=== PATIENT | female | born 1955 | race Caucasian/White ===

== ENCOUNTER 2021-10-07 17:34 | Inpatient (IN) | payer OTHER ==
[2021-10-07] MEDS ORDERED: LIDOCAINE HCL/EPINEPHRINE/PF 20 ML VIAL ONE (18:01)
[2021-10-07 18:03] VITALS: BMI 24.1
[2021-10-07] MEDS ORDERED: LORazepam 2 MG/ML SDV VIAL IVPUSH ONE (18:47)
[2021-10-07 19:12] LABS: INR 1.28 (0.83-1.09); PROTHROMBIN TIME (PATIENT) 14.7 SEC (9.7-13.0)
[2021-10-07 19:15] LABS: ACTIVATED PTT 33.7 SECONDS (25.2-36.5)
[2021-10-07 19:23] LABS: HEMATOCRIT 29.1 % (32.4-45.2); HEMOGLOBIN 9.2 G/dL (10.7-15.3); MCH 21.4 pg (25.7-33.7); MCHC 31.6 g/dl (32.0-36.0); MEAN CELL VOLUME 67.5 fl (80-96); PLATELET COUNT 169.3 10^3/uL (134-434); RBC 4.31 10^6/uL (3.60-5.2); RDW 24.4 % (11.6-15.6); WHITE BLOOD COUNT 4.6 10^3/uL (4.0-10.8)
[2021-10-07 19:30] LABS: ANISOCYTOSIS 2+
[2021-10-07 19:31] LABS: PLATELET ESTIMATE ADEQUATE; TARGET CELLS FEW
[2021-10-07 20:08] LABS: ALBUMIN 2.9 g/dl (3.4-5.0); BILIRUBIN,TOTAL 0.9 mg/dl (0.2-1); CALCIUM 8.1 mg/dl (8.5-10); CREATININE 0.4 mg/dl (0.55-1.3)
[2021-10-07] MEDS ORDERED: SODIUM CHLORIDE 0.9% 500 ML INFUS.BAG IV ONE (20:44)
[2021-10-08] MEDS ORDERED: DIPHTH,PERTUSS(ACELL),TET 0.5 ML DISP.SYRIN IM ONE ×2 (00:17→00:22)
[2021-10-08] MEDS ORDERED: FOLIC ACID INJECTION - 1 MG, THIAMINE HCL 100 MG, MULTIVIT INJECTION ADULT 10 ML in SOD... IVPB ONE (03:29)
[2021-10-08] MEDS ORDERED: LORazepam 1 MG TABLET PO PRN ×2 (03:30→10:33)
[2021-10-08] MEDS ORDERED: POTASSIUM CHLORIDE ORAL LIQUID 20 MEQ/15 ML PO ONE (05:03)
[2021-10-08 05:11] LABS: BLOOD UREA NITROGEN 3.1 mg/dL (7-18); CALCIUM 7.5 mg/dL (8.5-10.1)
[2021-10-08 05:14] LABS: CREATININE 0.3 mg/dL (0.55-1.3)
[2021-10-08 09:06] LABS: MAGNESIUM 1.5 mg/dL (1.8-2.4)
[2021-10-08] MEDS: FOLIC ACID 1 MG TABLET (FP) PO SCH (09:15)
[2021-10-08] MEDS: DEXAMETHASONE SOD PHOSPHATE 10 MG/1 ML VIAL IVPUSH SCH (09:15)
[2021-10-08] MEDS: THIAMINE HCL 100 MG TABLET (FP) PO SCH (09:15)
[2021-10-08 09:16] LABS: IRON SERUM 15 ug/dL (50-175); TOTAL IRON BINDING CAPACITY 397 ug/dL (250-450)
[2021-10-08 09:56] LABS: HEMATOCRIT 24.1 % (32.4-45.2); HEMOGLOBIN 7.4 GM/dL (10.7-15.3); MCH 20.5 pg (25.7-33.7); MCHC 30.7 g/dl (32.0-36.0); MEAN CELL VOLUME 66.6 fl (80-96); MEAN PLT VOLUME 8.4 fl (7.5-11.1); PLATELET COUNT 104 10^3/uL (134-434); RBC 3.62 M/mm3 (3.60-5.2); RETICULOCYTES 2.28 % (0.5-1.5); WHITE BLOOD COUNT 3.2 K/mm3 (4.0-10.0)
[2021-10-08] MEDS: LORazepam 1 MG TABLET PO PRN (10:36)
[2021-10-08 11:09] LABS: ERYTHROCYTE SEDIMENTATION RATE 9 mm/hr (0-30)
[2021-10-08] MEDS: LORazepam 1 MG TABLET PO SCH ×3 (12:16→22:41)
[2021-10-08 12:53] LABS: BLOOD UREA NITROGEN 3.8 mg/dL (7-18)
[2021-10-08 12:56] LABS: CREATININE 0.5 mg/dL (0.55-1.3)
[2021-10-08] MEDS ORDERED: MAGNESIUM SULF 50% (8.12 MEQ/2 ML-1 GM VIAL) IVPB ONE (13:00)
[2021-10-08 13:17] LABS: EPI CELLS 5 /uL (0-25.1); HYALINE CASTS 6 /uL (0-3.1); PH,URINE 8.5 (5.0-8.0); URINE APPEARANCE CLOUDY; URINE BACTERIA >9,000 /uL (0-1359); URINE BILIRUBIN NEGATIVE (NEGATIVE); URINE COLOR YELLOW; URINE GLUCOSE (UA) NEGATIVE (NEGATIVE); URINE KETONE NEGATIVE (NEGATIVE); URINE LEUK ESTERASE 3+ (NEGATIVE); URINE NITRITE POSITIVE (NEGATIVE); URINE PROTEIN TRACE (NEGATIVE); URINE RBC 6 /uL (0-23.9); URINE WBC 670 /uL (0-25.8)
[2021-10-08] MEDS ORDERED: DEXTROSE 5%-WATER - 50 ML IVPB ONE (15:30)
[2021-10-08] MEDS ORDERED: cefTRIAXone SODIUM 1 GM VIAL ONE (15:30)
[2021-10-08] MEDS: CEFTRIAXONE 1 GM in DEXTROSE 5%-WATER - 50 ML IVPB SCH (15:46)
[2021-10-08 16:33] LABS: BLOOD UREA NITROGEN 5.3 mg/dL (7-18)
[2021-10-08 16:36] LABS: CREATININE 0.6 mg/dL (0.55-1.3)
[2021-10-09] MEDS: LORazepam 1 MG TABLET PO SCH ×4 (06:10→22:00)
[2021-10-09 07:39] LABS: HEMATOCRIT 23.4 % (32.4-45.2); HEMOGLOBIN 7.1 GM/dL (10.7-15.3); MCH 20.6 pg (25.7-33.7); MCHC 30.4 g/dl (32.0-36.0); MEAN CELL VOLUME 67.7 fl (80-96); MEAN PLT VOLUME 8.2 fl (7.5-11.1); PLATELET COUNT 93 10^3/uL (134-434); RBC 3.45 M/mm3 (3.60-5.2); RDW 23.9 % (11.6-15.6); WHITE BLOOD COUNT 2.5 K/mm3 (4.0-10.0)
[2021-10-09 08:11] LABS: BLOOD UREA NITROGEN 5.9 mg/dL (7-18); CALCIUM 7.9 mg/dL (8.5-10.1)
[2021-10-09 08:12] LABS: MAGNESIUM 1.8 mg/dL (1.8-2.4)
[2021-10-09 08:14] LABS: CREATININE 0.4 mg/dL (0.55-1.3); PHOSPHOROUS 3.7 mg/dL (2.5-4.9)
[2021-10-09] MEDS ORDERED: DEXTROSE 5%-WATER - 50 ML IVPB ONE (08:57)
[2021-10-09] MEDS ORDERED: cefTRIAXone SODIUM 1 GM VIAL ONE (08:57)
[2021-10-09 09:04] LABS: ANISOCYTOSIS 2+; MACROCYTOSIS 0; TARGET CELLS 1+
[2021-10-09] MEDS: THIAMINE HCL 100 MG TABLET (FP) PO SCH (09:46)
[2021-10-09] MEDS: CEFTRIAXONE 1 GM in DEXTROSE 5%-WATER - 50 ML IVPB SCH (09:46)
[2021-10-09] MEDS: FOLIC ACID 1 MG TABLET (FP) PO SCH (09:46)
[2021-10-09] MEDS: DEXAMETHASONE SOD PHOSPHATE 10 MG/1 ML VIAL IVPUSH SCH (09:46)
[2021-10-09] MEDS ORDERED: SODIUM CHLORIDE 250 ML IV STA (16:03)
[2021-10-09] MEDS ORDERED: IRON SUCROSE INJECTION 200 MG in SODIUM CHLORIDE 90 ML IVPB ONE (16:22)
[2021-10-09] MEDS ORDERED: DOCUSATE SODIUM 100 MG CAPSULE (FP) PO PRN (16:31)
[2021-10-09 16:37] LABS: HEMATOCRIT 26.2 % (32.4-45.2); HEMOGLOBIN 7.8 GM/dL (10.7-15.3); MCH 20.3 pg (25.7-33.7); MCHC 29.9 g/dl (32.0-36.0); MEAN CELL VOLUME 67.8 fl (80-96); PLATELET COUNT 110 10^3/uL (134-434); RBC 3.86 M/mm3 (3.60-5.2)
[2021-10-09 17:01] LABS: WHITE BLOOD COUNT 1.5 K/mm3 (4.0-10.0)
[2021-10-09] MEDS: LORazepam 1 MG TABLET PO PRN (17:27)
[2021-10-09] MEDS ORDERED: METOPROLOL TARTRATE 5 MG/5 ML VIAL IVPUSH PRN (18:07)
[2021-10-09] MEDS: FERROUS SO4 325 MG TABLET (FP) PO SCH (22:00)
[2021-10-10] MEDS: LORazepam 1 MG TABLET PO SCH ×4 (05:49→22:38)
[2021-10-10 07:39] LABS: BASO % 0.6 % (0-2.0); EOS % 0.1 % (0-4.5); HEMATOCRIT 23.6 % (32.4-45.2); HEMOGLOBIN 7.2 GM/dL (10.7-15.3); LYMPH % 25.9 % (8-40); MCH 20.8 pg (25.7-33.7); MCHC 30.6 g/dl (32.0-36.0); MEAN CELL VOLUME 67.9 fl (80-96); MEAN PLT VOLUME 8.7 fl (7.5-11.1); MONO % 16.2 % (3.8-10.2); NEUT % 57.2 % (42.8-82.8); PLATELET COUNT 105 10^3/uL (134-434); RBC 3.47 M/mm3 (3.60-5.2); RDW 23.6 % (11.6-15.6); WHITE BLOOD COUNT 4.1 K/mm3 (4.0-10.0)
[2021-10-10 07:52] LABS: INR 1.46 (0.83-1.09); PROTHROMBIN TIME (PATIENT) 16.9 SEC (9.7-13.0)
[2021-10-10 07:54] LABS: ACTIVATED PTT 29.5 SECONDS (25.2-36.5)
[2021-10-10 08:15] LABS: BLOOD UREA NITROGEN 8.1 mg/dL (7-18); CALCIUM 8.2 mg/dL (8.5-10.1)
[2021-10-10 08:16] LABS: ALBUMIN 2.6 g/dl (3.4-5.0); MAGNESIUM 1.7 mg/dL (1.8-2.4)
[2021-10-10 08:19] LABS: CREATININE 0.5 mg/dL (0.55-1.3)
[2021-10-10 08:20] LABS: BILIRUBIN,TOTAL 0.8 mg/dL (0.2-1); TOT PROT 6.9 g/dl (6.4-8.2)
[2021-10-10] MEDS: FOLIC ACID 1 MG TABLET (FP) PO SCH (10:20)
[2021-10-10] MEDS: THIAMINE HCL 100 MG TABLET (FP) PO SCH (10:20)
[2021-10-10] MEDS: FERROUS SO4 325 MG TABLET (FP) PO SCH ×2 (10:20→22:38)
[2021-10-10] MEDS ORDERED: MAGNESIUM SULF 50% (8.12 MEQ/2 ML-1 GM VIAL) IVPB ONE (13:13)
[2021-10-10] MEDS ORDERED: SODIUM CHLORIDE 1,000 ML IV SCH (13:15)
[2021-10-10] MEDS ORDERED: MAGNESIUM OXIDE 400 MG TABLET (FP) PO ONE (13:48)
[2021-10-10] MEDS: SODIUM CHLORIDE 1 GM TABLET PO SCH ×2 (15:15→22:42)
[2021-10-11] MEDS ORDERED: LORazepam 0.5 MG TABLET PO PRN
[2021-10-11] MEDS: LORazepam 0.5 MG TABLET PO SCH ×4 (05:41→22:30)
[2021-10-11 07:27] LABS: HEMATOCRIT 23.7 % (32.4-45.2); HEMOGLOBIN 7.2 GM/dL (10.7-15.3); MCH 20.8 pg (25.7-33.7); MCHC 30.3 g/dl (32.0-36.0); MEAN CELL VOLUME 68.6 fl (80-96); MEAN PLT VOLUME 8.2 fl (7.5-11.1); PLATELET COUNT 101 10^3/uL (134-434); RBC 3.45 M/mm3 (3.60-5.2); RDW 23.8 % (11.6-15.6); WHITE BLOOD COUNT 2.8 K/mm3 (4.0-10.0)
[2021-10-11 07:58] LABS: ALBUMIN 2.3 g/dl (3.4-5.0); BLOOD UREA NITROGEN 11.7 mg/dL (7-18); MAGNESIUM 2.1 mg/dL (1.8-2.4)
[2021-10-11 08:01] LABS: CREATININE 0.4 mg/dL (0.55-1.3); PHOSPHOROUS 4.1 mg/dL (2.5-4.9)
[2021-10-11 08:02] LABS: BILIRUBIN,TOTAL 0.5 mg/dL (0.2-1)
[2021-10-11 08:39] LABS: ANISOCYTOSIS 3+; MACROCYTOSIS 0
[2021-10-11] MEDS: FOLIC ACID 1 MG TABLET (FP) PO SCH (09:24)
[2021-10-11] MEDS: ENOXAPARIN NA (PORCINE) 40 MG/0.4 ML DISP.SYRIN SQ SCH (09:25)
[2021-10-11] MEDS: THIAMINE HCL 100 MG TABLET (FP) PO SCH (09:25)
[2021-10-11] MEDS: FERROUS SO4 325 MG TABLET (FP) PO SCH ×2 (09:25→22:30)
[2021-10-11 10:53] LABS: HIV INTERPRETATION NEGATIVE (NEGATIVE)
[2021-10-12] MEDS ORDERED: LORazepam 0.5 MG TABLET PO ONE (05:00)
[2021-10-12 06:34] LABS: BASO % 0.8 % (0-2.0); EOS % 3.3 % (0-4.5); HEMATOCRIT 24.8 % (32.4-45.2); HEMOGLOBIN 7.4 GM/dL (10.7-15.3); LYMPH % 34.7 % (8-40); MCH 20.5 pg (25.7-33.7); MCHC 29.6 g/dl (32.0-36.0); MEAN CELL VOLUME 69.1 fl (80-96); MEAN PLT VOLUME 8.5 fl (7.5-11.1); MONO % 22.4 % (3.8-10.2); NEUT % 38.8 % (42.8-82.8); PLATELET COUNT 112 10^3/uL (134-434); RDW 24.4 % (11.6-15.6); WHITE BLOOD COUNT 3.6 K/mm3 (4.0-10.0)
[2021-10-12 07:02] LABS: ALBUMIN 2.2 g/dl (3.4-5.0); BLOOD UREA NITROGEN 11.8 mg/dL (7-18); CALCIUM 7.8 mg/dL (8.5-10.1)
[2021-10-12 07:03] LABS: MAGNESIUM 1.7 mg/dL (1.8-2.4)
[2021-10-12 07:06] LABS: CREATININE 0.4 mg/dL (0.55-1.3)
[2021-10-12 07:07] LABS: BILIRUBIN,TOTAL 0.4 mg/dL (0.2-1); PHOSPHOROUS 3.7 mg/dL (2.5-4.9); TOT PROT 5.7 g/dl (6.4-8.2)
[2021-10-12] MEDS ORDERED: MAGNESIUM CL 64 MG TABLET.SA PO ONE (09:00)
[2021-10-12] MEDS: THIAMINE HCL 100 MG TABLET (FP) PO SCH (09:10)
[2021-10-12] MEDS: FERROUS SO4 325 MG TABLET (FP) PO SCH (09:10)
[2021-10-12] MEDS: ENOXAPARIN NA (PORCINE) 40 MG/0.4 ML DISP.SYRIN SQ SCH (09:10)
[2021-10-12] MEDS: FOLIC ACID 1 MG TABLET (FP) PO SCH (09:10)
[2021-10-12 09:26] LABS: ANISOCYTOSIS 2+; MACROCYTOSIS 0; TARGET CELLS 1+
[2021-10-12] MEDS ORDERED: SODIUM CHLORIDE 1 GM TABLET PO SCH (10:00)
[2021-10-12] MEDS ORDERED: MAGNESIUM OXIDE 400 MG TABLET (FP) PO SCH (10:00)
[2021-10-12 13:59] VITALS: BP 127/67; PULSE 111; TEMP 98.6
== END 2021-10-12 18:28 | disposition home health service (06) | DRG 896 ==
LOC: FER 17:34 → J4S 10-08 02:33
PROVIDERS: ADMIT Internal Medicine; ATTEND Internal Medicine
PROC: HZ2ZZZZ Detoxification Services for Substance Abuse Treatment (ICD-10-PCS; principal; 2021-10-08)
DX: F10.239 Alcohol dependence with withdrawal, unspecified (principal); U07.1 COVID-19; N39.0 Urinary tract infection, site not specified; E87.1 Hypo-osmolality and hyponatremia; I24.8 Other forms of acute ischemic heart disease; D61.818 Other pancytopenia; D50.9 Iron deficiency anemia, unspecified; B96.1 Klebsiella pneumoniae [K. pneumoniae] as the cause of diseases classified elsewhere; E83.42 Hypomagnesemia
CPT/HCPCS: 36415; 70450-TC; 71045-TC-FY; 71275-TC; 72125-TC; 72170-TC-FY; 80048; 80053; 80061; 80307; 81003; 82272; 82570; 82728; 83540; 83550; 83615; 83735; 83835; 83930; 83935; 84100; 84300; 84443; 84484; 85025; 85027; 85045; 85610; 85651; 85730; 86140; 86850; 86900; 86901; 87040; 87086; 87186; 87389; 90715; 93005; 93010; 94761; 97116-GP; 97161-GP; 99285-25; C9803-CS; J1100; Q9967; U0003; U0005

== ENCOUNTER 2021-10-16 11:44 | Emergency (ER) | payer OTHER ==
[2021-10-16 11:56] VITALS: BP 114/87; PULSE 100; TEMP 98.3; BMI 24.1
== END 2021-10-16 12:10 | disposition home or self-care (01) ==
LOC: FER 11:44
DX: Z48.01 Encounter for change or removal of surgical wound dressing (principal)
CPT/HCPCS: 99281-25

== ENCOUNTER 2022-04-23 17:29 | Inpatient (IN) | payer OTHER ==
[2022-04-23 21:40] LABS: VENOUS BASE EXCESS 5.1 mmol/L (-2-2); VENOUS O2 SATURATION 41.1 % (70-80); VENOUS PCO2 58.5 mmHg (38-52); VENOUS PH 7.36 (7.310-7.410)
[2022-04-23 21:55] LABS: BASO % 0.1 % (0-2.0); HEMATOCRIT 41.7 % (32.4-45.2); HEMOGLOBIN 13.2 GM/dL (10.7-15.3); LYMPH % 8.6 % (8-40); MCH 28.3 pg (25.7-33.7); MCHC 31.8 g/dl (32.0-36.0); MEAN CELL VOLUME 89.1 fl (80-96); MEAN PLT VOLUME 8.3 fl (7.5-11.1); MONO % 10.6 % (3.8-10.2); NEUT % 80.7 % (42.8-82.8); PLATELET COUNT 273 10^3/uL (134-434); RBC 4.68 M/mm3 (3.60-5.2); RDW 15.1 % (11.6-15.6); WHITE BLOOD COUNT 16.9 K/mm3 (4.0-10.0)
[2022-04-23 22:11] LABS: ALBUMIN 2.3 g/dl (3.4-5.0); BLOOD UREA NITROGEN 10.6 mg/dL (7-18); CALCIUM 8.5 mg/dL (8.5-10.1)
[2022-04-23 22:13] LABS: CREATININE 0.5 mg/dL (0.55-1.3)
[2022-04-23 22:15] LABS: BILIRUBIN,TOTAL 0.7 mg/dL (0.2-1); TOT PROT 6.5 g/dl (6.4-8.2)
[2022-04-23 22:18] LABS: N-TERMINAL BNP 469.4 pg/ml (5-125)
[2022-04-23 22:29] LABS: INR 1.35 (0.83-1.09); PROTHROMBIN TIME (PATIENT) 15.6 SEC (9.7-13.0)
[2022-04-23 22:32] LABS: ACTIVATED PTT 30.7 SECONDS (25.2-36.5)
[2022-04-24] MEDS ORDERED: CEFTRIAXONE 1,000 MG in DEXTROSE 5%-WATER - 50 ML IVPB ONE (00:33)
[2022-04-24] MEDS ORDERED: AZITHROMYCIN IVPB 500 MG in DEXTROSE 5%-WATER - 250 ML IVPB ONE (00:33)
[2022-04-24] MEDS ORDERED: CEFTRIAXONE 1 GM/50 ML BAG ONE (00:37)
[2022-04-24] MEDS ORDERED: AZITHROMYCIN IVPB 500 MG/250 ML BAG IVPB ONE (00:38)
[2022-04-24] MEDS ORDERED: VANCOMYCIN 1,000 MG in DEXTROSE 5%-WATER - 250 ML IVPB SCH ×2 (06:30→10:00)
[2022-04-24 06:44] LABS: PH,URINE 5.5 (5.0-8.0); URINE APPEARANCE CLOUDY; URINE BILIRUBIN 1+ (NEGATIVE); URINE COLOR DK YELLOW; URINE GLUCOSE (UA) NEGATIVE (NEGATIVE); URINE KETONE TRACE (NEGATIVE); URINE LEUK ESTERASE 2+ (NEGATIVE); URINE NITRITE POSITIVE (NEGATIVE); URINE PROTEIN TRACE (NEGATIVE); URINE UROBILINOGEN 0.2 mg/dL (0.2-1.0)
[2022-04-24] MEDS ORDERED: VANCOMYCIN/WATER FOR INJ (PEG) 1,000 MG/200 ML BAG IVPB ONE (07:28)
[2022-04-24 07:34] LABS: EPI CELLS 2.2 /uL (0-25.1); HYALINE CASTS 3.86 /uL (0-3.1); URINE BACTERIA 38440.7 /uL (0-1359); URINE RBC 8.8 /uL (0-23.9)
[2022-04-24 08:18] LABS: BASO % 0.2 % (0-2.0); EOS % 0.7 % (0-4.5); HEMATOCRIT 36.1 % (32.4-45.2); HEMOGLOBIN 11.8 GM/dL (10.7-15.3); LYMPH % 13.4 % (8-40); MCH 28.9 pg (25.7-33.7); MCHC 32.6 g/dl (32.0-36.0); MEAN CELL VOLUME 88.8 fl (80-96); MEAN PLT VOLUME 8.3 fl (7.5-11.1); MONO % 13.1 % (3.8-10.2); NEUT % 72.6 % (42.8-82.8); PLATELET COUNT 197 10^3/uL (134-434); RBC 4.07 M/mm3 (3.60-5.2); RDW 15.3 % (11.6-15.6); WHITE BLOOD COUNT 8.8 K/mm3 (4.0-10.0)
[2022-04-24 08:39] LABS: URINE CRYSTALS FEW CALCIUM OXALATE /hpf
[2022-04-24 08:50] LABS: ALBUMIN 1.9 g/dl (3.4-5.0); BLOOD UREA NITROGEN 10.5 mg/dL (7-18); CALCIUM 8.5 mg/dL (8.5-10.1)
[2022-04-24 08:52] LABS: CREATININE 0.4 mg/dL (0.55-1.3); TOT PROT 5.5 g/dl (6.4-8.2)
[2022-04-24 08:53] LABS: BILIRUBIN,TOTAL 0.7 mg/dL (0.2-1)
[2022-04-24] MEDS ORDERED: VANCOMYCIN/WATER FOR INJ (PEG) 1,000 MG/200 ML BAG IVPB SCH (11:11)
[2022-04-25] MEDS: CEFTRIAXONE 1 GM in DEXTROSE 5%-WATER - 50 ML IVPB SCH (10:46)
[2022-04-25] MEDS ORDERED: METOPROLOL TARTRATE 5 MG/5 ML VIAL IVPUSH PRN (12:28)
[2022-04-25 13:44] LABS: BASO % 0.3 % (0-2.0); EOS % 2.4 % (0-4.5); HEMATOCRIT 39.5 % (32.4-45.2); HEMOGLOBIN 12.8 GM/dL (10.7-15.3); LYMPH % 7.8 % (8-40); MCH 28.7 pg (25.7-33.7); MCHC 32.4 g/dl (32.0-36.0); MEAN CELL VOLUME 88.6 fl (80-96); MONO % 8.5 % (3.8-10.2); PLATELET COUNT 271 10^3/uL (134-434); RBC 4.45 M/mm3 (3.60-5.2); RDW 15.1 % (11.6-15.6); WHITE BLOOD COUNT 14.8 K/mm3 (4.0-10.0)
[2022-04-25 14:01] LABS: ALBUMIN 2.2 g/dl (3.4-5.0); BLOOD UREA NITROGEN 11.9 mg/dL (7-18); CALCIUM 8.3 mg/dL (8.5-10.1)
[2022-04-25 14:04] LABS: CREATININE 0.6 mg/dL (0.55-1.3)
[2022-04-25 14:06] LABS: BILIRUBIN,TOTAL 0.6 mg/dL (0.2-1); TOT PROT 6.4 g/dl (6.4-8.2)
[2022-04-26 08:21] LABS: BASO % 0.5 % (0-2.0); EOS % 3.9 % (0-4.5); HEMATOCRIT 35.1 % (32.4-45.2); HEMOGLOBIN 11.5 GM/dL (10.7-15.3); MCH 29.2 pg (25.7-33.7); MCHC 32.7 g/dl (32.0-36.0); MEAN CELL VOLUME 89.5 fl (80-96); MEAN PLT VOLUME 8.2 fl (7.5-11.1); MONO % 9.9 % (3.8-10.2); NEUT % 72.7 % (42.8-82.8); PLATELET COUNT 142 10^3/uL (134-434); RBC 3.93 M/mm3 (3.60-5.2); WHITE BLOOD COUNT 7.6 K/mm3 (4.0-10.0)
[2022-04-26 09:02] LABS: BLOOD UREA NITROGEN 9.8 mg/dL (7-18)
[2022-04-26 09:05] LABS: CREATININE 0.3 mg/dL (0.55-1.3)
[2022-04-26 09:07] LABS: BILIRUBIN,TOTAL 0.9 mg/dL (0.2-1)
[2022-04-26] MEDS: CEFTRIAXONE 1 GM in DEXTROSE 5%-WATER - 50 ML IVPB SCH (09:27)
[2022-04-27] MEDS: CEFTRIAXONE 1 GM in DEXTROSE 5%-WATER - 50 ML IVPB SCH (09:32)
[2022-04-27] MEDS: metoPROLOL SUCCINATE 25 MG TAB.SR.24H (FP) PO SCH (11:34)
[2022-04-27 17:58] LABS: BF WBC & OTHER NUCLEATED CELLS 288 /mm3
[2022-04-27 18:52] LABS: BODY FLUID MACROPHAGES 80 %; BODY FLUID MONOCYTE 1 %
[2022-04-28] MEDS: metoPROLOL SUCCINATE 25 MG TAB.SR.24H (FP) PO SCH (09:25)
[2022-04-28] MEDS: CEFTRIAXONE 1 GM in DEXTROSE 5%-WATER - 50 ML IVPB SCH (09:25)
[2022-04-29 08:40] LABS: BASO % 0.7 % (0-2.0); EOS % 2.2 % (0-4.5); HEMATOCRIT 36.9 % (32.4-45.2); LYMPH % 9.5 % (8-40); MCH 29.1 pg (25.7-33.7); MCHC 32.6 g/dl (32.0-36.0); MEAN CELL VOLUME 89.2 fl (80-96); MONO % 15.5 % (3.8-10.2); NEUT % 72.1 % (42.8-82.8); PLATELET COUNT 200 10^3/uL (134-434); RBC 4.14 M/mm3 (3.60-5.2); RDW 14.8 % (11.6-15.6); WHITE BLOOD COUNT 7.5 K/mm3 (4.0-10.0)
[2022-04-29 08:58] LABS: ALBUMIN 1.8 g/dl (3.4-5.0); CALCIUM 7.8 mg/dL (8.5-10.1)
[2022-04-29 09:03] LABS: TOT PROT 5.5 g/dl (6.4-8.2)
[2022-04-29 09:05] LABS: CREATININE 0.4 mg/dL (0.55-1.3)
[2022-04-29] MEDS: CEFTRIAXONE 1 GM in DEXTROSE 5%-WATER - 50 ML IVPB SCH (09:43)
[2022-04-29] MEDS: metoPROLOL SUCCINATE 25 MG TAB.SR.24H (FP) PO SCH (09:43)
[2022-04-29] MEDS: SPIRONOLACTONE 25 MG TABLET PO SCH (13:30)
[2022-04-30] MEDS ORDERED: REGADENOSON 0.4 MG/5 ML PRE-FILLED SYRINGE IVPUSH ONE ×2 (10:45→13:08)
[2022-04-30] MEDS: CEFTRIAXONE 1 GM in DEXTROSE 5%-WATER - 50 ML IVPB SCH (16:01)
[2022-04-30] MEDS: metoPROLOL SUCCINATE 25 MG TAB.SR.24H (FP) PO SCH (16:02)
[2022-04-30] MEDS: SPIRONOLACTONE 25 MG TABLET PO SCH (16:02)
[2022-05-01] MEDS: CEFTRIAXONE 1 GM in DEXTROSE 5%-WATER - 50 ML IVPB SCH (10:00)
[2022-05-01] MEDS: SPIRONOLACTONE 25 MG TABLET PO SCH (10:00)
[2022-05-01] MEDS: metoPROLOL SUCCINATE 25 MG TAB.SR.24H (FP) PO SCH (10:00)
[2022-05-01 13:08] LABS: BODY FLUID ALBUMIN 0.4 g/dL (Not Estab.)
[2022-05-01] MEDS ORDERED: LISINOPRIL 5 MG TABLET PO ONE (18:04)
[2022-05-01 19:43] VITALS: BMI 22.8
[2022-05-02 07:47] VITALS: RESP 20
[2022-05-02] MEDS: metoPROLOL SUCCINATE 25 MG TAB.SR.24H (FP) PO SCH (10:11)
[2022-05-02] MEDS: SPIRONOLACTONE 25 MG TABLET PO SCH (10:11)
[2022-05-02] MEDS: LISINOPRIL 5 MG TABLET PO SCH (10:12)
[2022-05-02 12:30] LABS: MAGNESIUM 1.8 mg/dL (1.8-2.4)
[2022-05-03] MEDS: metoPROLOL SUCCINATE 25 MG TAB.SR.24H (FP) PO SCH (09:41)
[2022-05-03] MEDS: LISINOPRIL 5 MG TABLET PO SCH (09:41)
[2022-05-03] MEDS: SPIRONOLACTONE 25 MG TABLET PO SCH (09:41)
[2022-05-03] MEDS ORDERED: ESCITALOPRAM OXALATE 10 MG TABLET PO SCH (10:00)
[2022-05-03] MEDS ORDERED: LISINOPRIL 5 MG TABLET PO SCH (12:08)
[2022-05-03 16:19] VITALS: BP 113/68; TEMP 98.4
[2022-05-03 16:21] VITALS: PULSE 109
== END 2022-05-03 17:24 | disposition home health service (06) | DRG 193 ==
LOC: JER 17:29 → JERBED 04-24 00:34 → J4W 04-24 16:55
PROVIDERS: ADMIT Internal Medicine; ATTEND Family Medicine
DX: J18.9 Pneumonia, unspecified organism (principal); I50.33 Acute on chronic diastolic (congestive) heart failure; J96.01 Acute respiratory failure with hypoxia; J96.02 Acute respiratory failure with hypercapnia; N39.0 Urinary tract infection, site not specified; I42.8 Other cardiomyopathies; E87.1 Hypo-osmolality and hyponatremia; Z94.1 Heart transplant status; D72.829 Elevated white blood cell count, unspecified; K70.31 Alcoholic cirrhosis of liver with ascites; B96.20 Unspecified Escherichia coli [E. coli] as the cause of diseases classified elsewhere; D64.9 Anemia, unspecified; J98.6 Disorders of diaphragm; R05.3 Chronic cough; K80.80 Other cholelithiasis without obstruction; I11.0 Hypertensive heart disease with heart failure; I50.84 End stage heart failure; R00.0 Tachycardia, unspecified; I83.892 Varicose veins of left lower extremity with other complications; K76.0 Fatty (change of) liver, not elsewhere classified; Z88.0 Allergy status to penicillin
CPT/HCPCS: 0241U-QW; 36415; 49083; 71045-TC-FY; 74150-TC; 76700-TC; 78452-TC; 80053; 81003; 82042; 82105; 82150; 82465; 82550; 82803; 82945; 82977; 83615; 83735; 83880; 83986; 84157; 84443; 84478; 84484; 85025; 85610; 85730; 86704; 86803; 86850; 86900; 86901; 87040; 87070; 87075; 87086; 87102; 87116; 87186; 87205; 87206; 87210; 87340; 87517; 87899; 88108; 88305-TC; 93005; 93010; 93017; 93306-TC; 94660; 94761; 97116-GP; 97161-GP; 99285-25; A9502; J2785

== ENCOUNTER 2022-11-04 11:08 | Inpatient (IN) | payer OTHER ==
[2022-11-04] MEDS ORDERED: DIPHTH,PERTUSS(ACELL),TET 0.5 ML DISP.SYRIN IM ONE ×2 (11:46→12:09)
[2022-11-04 12:11] LABS: BASO % 0.2 % (0-2.0); HEMATOCRIT 38.7 % (32.4-45.2); HEMOGLOBIN 13.2 GM/dL (10.7-15.3); LYMPH % 5.1 % (8-40); MCH 28.5 pg (25.7-33.7); MEAN CELL VOLUME 83.8 fl (80-96); MONO % 13.1 % (3.8-10.2); NEUT % 81.6 % (42.8-82.8); RBC 4.62 M/mm3 (3.60-5.2); RDW 18.8 % (11.6-15.6); WHITE BLOOD COUNT 5.1 K/mm3 (4.0-10.0)
[2022-11-04 12:20] LABS: INR 1.48 (0.83-1.09); PROTHROMBIN TIME (PATIENT) 17.1 SEC (9.7-13.0)
[2022-11-04 12:23] LABS: ACTIVATED PTT 31.1 SECONDS (25.2-36.5)
[2022-11-04 12:39] LABS: POTASSIUM 3.9 mmol/L (3.5-5.1)
[2022-11-04 12:41] LABS: ALBUMIN 2.4 g/dl (3.4-5.0); CALCIUM 8.1 mg/dL (8.5-10.1)
[2022-11-04 12:42] LABS: BLOOD UREA NITROGEN 6.3 mg/dL (7-18); MAGNESIUM 1.4 mg/dL (1.8-2.4)
[2022-11-04 12:45] LABS: CREATININE 0.5 mg/dL (0.55-1.3)
[2022-11-04 12:46] LABS: BILIRUBIN,TOTAL 2.8 mg/dL (0.2-1); TOT PROT 6.7 g/dl (6.4-8.2)
[2022-11-04 12:49] LABS: N-TERMINAL BNP 1477.6 pg/ml (5-125)
[2022-11-04] MEDS ORDERED: ASPIRIN 81 MG CHEWABLE TABLETS PO ONE (12:55)
[2022-11-04] MEDS ORDERED: SODIUM CHLORIDE 0.9% 500 ML INFUS.BAG IV ONE (12:56)
[2022-11-04 12:58] LABS: MEAN PLT VOLUME 7.6 fl (7.5-11.1)
[2022-11-04 12:59] LABS: PLATELET COUNT 96 10^3/uL (134-434)
[2022-11-04] MEDS ORDERED: ASPIRIN 81 MG CHEWABLE TABLETS ONE (13:00)
[2022-11-04] MEDS ORDERED: MAGNESIUM SULFATE IN WATER 2 GM/50 ML IVPB IVPB ONE (13:01)
[2022-11-04 14:53] LABS: CHLORIDE 87 mmol/L (98-107); POTASSIUM 3.4 mmol/L (3.5-5.1); SODIUM 124 mmol/L (136-145)
[2022-11-04 14:55] LABS: ALBUMIN 2.4 g/dl (3.4-5.0); ANION GAP 15 MMOL/L (8-16); BLOOD UREA NITROGEN 6.8 mg/dL (7-18); CO2 23 mmol/L (21-32); GLUCOSE,RANDOM 86 mg/dL (74-106)
[2022-11-04 14:58] LABS: BILIRUBIN,DIRECT 1.8 mg/dL (0.0-0.2); CREATININE 0.4 mg/dL (0.55-1.3); SGOT/AST 160 U/L (15-37); SGPT/ALT 52 U/L (13-61)
[2022-11-04 15:00] LABS: BILIRUBIN,TOTAL 2.7 mg/dL (0.2-1); TOT PROT 6.8 g/dl (6.4-8.2)
[2022-11-04 15:01] LABS: ALK PHOS 99 U/L (45-117)
[2022-11-04] MEDS: SPIRONOLACTONE 25 MG TABLET PO SCH (18:51)
[2022-11-04] MEDS ORDERED: FUROSEMIDE 40 MG/4 ML INJECTABLE VIAL IVPUSH ONE (21:52)
[2022-11-04] MEDS ORDERED: LORazepam 1 MG TABLET PO ONE (21:54)
[2022-11-04] MEDS: CARVEDILOL 3.125 MG TABLET (FP) PO SCH ×2 (21:58→22:01)
[2022-11-04] MEDS: THIAMINE HCL 100 MG TABLET (FP) PO SCH (22:02)
[2022-11-04] MEDS: FOLIC ACID 1 MG TABLET (FP) PO SCH (22:02)
[2022-11-04 22:03] LABS: METHADONE, UR NEGATIVE (NEGATIVE); PHENCYCLIDINE,URINE NEGATIVE (NEGATIVE)
[2022-11-04 22:04] LABS: COCAINE, UR NEGATIVE (NEGATIVE); OPIATES, URI NEGATIVE (NEGATIVE); URINE AMPHETAMINES NEGATIVE (NEGATIVE); URINE BARBITURATES NEGATIVE (NEGATIVE)
[2022-11-04 22:09] LABS: URINE BENZODIAZEPINES NEGATIVE (NEGATIVE)
[2022-11-05] MEDS ORDERED: HEPARIN NA (PORCINE) 5,000 UNITS/ML 1ML VIAL SQ SCH (06:00)
[2022-11-05] MEDS ORDERED: ENOXAPARIN NA (PORCINE) 60 MG/0.6 ML DISP.SYRIN SQ SCH (08:07)
[2022-11-05 08:32] LABS: POTASSIUM 3.1 mmol/L (3.5-5.1)
[2022-11-05 08:33] LABS: HEMATOCRIT 35.9 % (32.4-45.2); HEMOGLOBIN 11.8 GM/dL (10.7-15.3); MCH 27.8 pg (25.7-33.7); MEAN CELL VOLUME 84.2 fl (80-96); MEAN PLT VOLUME 8.1 fl (7.5-11.1); PLATELET COUNT 78 10^3/uL (134-434); RBC 4.26 M/mm3 (3.60-5.2); RDW 18.8 % (11.6-15.6); WHITE BLOOD COUNT 4.2 K/mm3 (4.0-10.0)
[2022-11-05 08:37] LABS: CALCIUM 7.6 mg/dL (8.5-10.1)
[2022-11-05 08:38] LABS: ALBUMIN 2.1 g/dl (3.4-5.0); BLOOD UREA NITROGEN 7.7 mg/dL (7-18); MAGNESIUM 1.6 mg/dL (1.8-2.4)
[2022-11-05 08:41] LABS: CREATININE 0.3 mg/dL (0.55-1.3); PHOSPHOROUS 3.7 mg/dL (2.5-4.9)
[2022-11-05 08:42] LABS: BILIRUBIN,TOTAL 1.6 mg/dL (0.2-1); TOT PROT 5.8 g/dl (6.4-8.2)
[2022-11-05] MEDS ORDERED: MAGNESIUM SULF 50% (8.12 MEQ/2 ML-1 GM VIAL) IVPB ONE (08:47)
[2022-11-05] MEDS ORDERED: metoPROLOL SUCCINATE 25 MG TAB.SR.24H (FP) PO SCH (10:00)
[2022-11-05] MEDS: KCL 10 MEQ IVPB 10 MEQ/100 ML INFUS.BAG IVPB SCH ×3 (10:17→13:15)
[2022-11-05] MEDS: THIAMINE HCL 100 MG TABLET (FP) PO SCH (10:19)
[2022-11-05] MEDS: SPIRONOLACTONE 25 MG TABLET PO SCH (10:19)
[2022-11-05] MEDS: CARVEDILOL 3.125 MG TABLET (FP) PO SCH ×3 (10:19→22:33)
[2022-11-05] MEDS: FOLIC ACID 1 MG TABLET (FP) PO SCH (10:19)
[2022-11-05] MEDS: ENOXAPARIN NA (PORCINE) 60 MG/0.6 ML DISP.SYRIN SQ SCH ×2 (10:19→22:33)
[2022-11-05] MEDS ORDERED: POTASSIUM CHLORIDE ORAL LIQUID 20 MEQ/15 ML PO ONE (15:00)
[2022-11-06] MEDS ORDERED: RAPID SEQUENCE INTUBATION KIT NR ONE (05:11)
[2022-11-06] MEDS ORDERED: ROCURONIUM BROMIDE 50 MG/5 ML VIAL IV ONE (05:15)
[2022-11-06] MEDS ORDERED: ETOMIDATE 40 MG/20 ML VIAL IVPUSH ONE (05:15)
[2022-11-06] MEDS ORDERED: FENTANYL IVPB 500 MCG/100 ML BAG IVPB ONE (05:59)
[2022-11-06] MEDS ORDERED: PROPOFOL 1,000,000 MCG/100 ML VIAL ONE (06:00)
[2022-11-06] MEDS ORDERED: PROPOFOL 1,000,000 MCG/100 ML VIAL IVPB SCH (06:30)
[2022-11-06] MEDS ORDERED: SODIUM CHLORIDE 1,000 ML IV STA ×2 (06:41→12:45)
[2022-11-06 07:20] LABS: BASO % 0.3 % (0-2.0); EOS % 0.3 % (0-4.5); HEMOGLOBIN 11.2 GM/dL (10.7-15.3); LYMPH % 5.2 % (8-40); MCH 28.4 pg (25.7-33.7); MCHC 32.8 g/dl (32.0-36.0); MEAN CELL VOLUME 86.5 fl (80-96); MEAN PLT VOLUME 8.5 fl (7.5-11.1); MONO % 10.8 % (3.8-10.2); NEUT % 83.4 % (42.8-82.8); PLATELET COUNT 66 10^3/uL (134-434); RBC 3.93 M/mm3 (3.60-5.2); RDW 18.3 % (11.6-15.6); WHITE BLOOD COUNT 3.5 K/mm3 (4.0-10.0)
[2022-11-06 07:27] LABS: INR 1.63 (0.83-1.09); PROTHROMBIN TIME (PATIENT) 18.8 SEC (9.7-13.0)
[2022-11-06] MEDS: NOREPINEPHRINE 0.9 % NACL 8 MG/250 ML BAG IVPB SCH ×2 (07:29→21:32)
[2022-11-06] MEDS: PIPERACILLIN/TAZOB 3.375 GM 3.375 GM in DEXTROSE 5%-WATER - 50 ML IVPB SCH ×2 (07:30→09:52)
[2022-11-06] MEDS: FENTANYL IVPB 500 MCG/100 ML BAG IVPB SCH (07:30)
[2022-11-06 07:42] LABS: POTASSIUM 3.4 mmol/L (3.5-5.1)
[2022-11-06 07:45] LABS: ALBUMIN 1.9 g/dl (3.4-5.0); BLOOD UREA NITROGEN 10.1 mg/dL (7-18); CALCIUM 7.5 mg/dL (8.5-10.1); MAGNESIUM 1.7 mg/dL (1.8-2.4)
[2022-11-06 07:48] LABS: CREATININE 0.3 mg/dL (0.55-1.3); PHOSPHOROUS 1.8 mg/dL (2.5-4.9)
[2022-11-06 07:50] LABS: BILIRUBIN,TOTAL 1.7 mg/dL (0.2-1); TOT PROT 5.2 g/dl (6.4-8.2)
[2022-11-06 08:53] LABS: EPI CELLS >36 /uL (0-25.1); HYALINE CASTS 4 /uL (0-3.1); PH,URINE 6.5 (5.0-8.0); URINE APPEARANCE CLOUDY; URINE BACTERIA >9,000 /uL (0-1359); URINE BILIRUBIN NEGATIVE (NEGATIVE); URINE COLOR DK YELLOW; URINE GLUCOSE (UA) NEGATIVE (NEGATIVE); URINE KETONE TRACE (NEGATIVE); URINE LEUK ESTERASE 2+ (NEGATIVE); URINE NITRITE POSITIVE (NEGATIVE); URINE PROTEIN 3+ (NEGATIVE); URINE WBC 1171 /uL (0-25.8)
[2022-11-06 09:03] LABS: URINE RBC 66.5 /uL (0-23.9)
[2022-11-06 09:30] LABS: ARTERIAL BLD GAS O2 SATURATION 89.2 % (95-98); ARTERIAL BLOOD GAS BASE EXCESS 5.4 mmol/L (-2-2); ARTERIAL BLOOD GAS pH 7.465 (7.350-7.450)
[2022-11-06 09:31] LABS: ALLENS TEST POSITIVE
[2022-11-06 09:32] LABS: VENT MODE TIDAL V 380; VENT RATE 20
[2022-11-06] MEDS: FOLIC ACID 1 MG TABLET (FP) PO SCH (09:52)
[2022-11-06] MEDS: ASPIRIN 81 MG CHEWABLE TABLETS PO SCH (09:52)
[2022-11-06] MEDS: THIAMINE HCL 200 MG/2 ML VIAL IVPB SCH (09:53)
[2022-11-06] MEDS: ENOXAPARIN NA (PORCINE) 60 MG/0.6 ML DISP.SYRIN SQ SCH ×2 (09:53→21:32)
[2022-11-06] MEDS: MUPIROCIN 2% TOPICAL OINTMENT FOR DECOLONIZATION NS SCH ×2 (09:53→21:16)
[2022-11-06] MEDS: PANTOPRAZOLE SODIUM 40 MG VIAL IVPUSH SCH (09:53)
[2022-11-06] MEDS ORDERED: MAGNESIUM SULF 50% (8.12 MEQ/2 ML-1 GM VIAL) IVPB ONE (11:47)
[2022-11-06] MEDS ORDERED: POTASSIUM PHOSPHATE 30 MM in SODIUM CHLORIDE 250 ML IVPB ONE (12:00)
[2022-11-06] MEDS ORDERED: MIDAZOLAM 100 MG in SODIUM CHLORIDE 100 ML IVPB SCH (12:45)
[2022-11-06] MEDS ORDERED: MIDAZOLAM IN 0.9 % SOD.CHLORID 1 MG/1 ML PLAST..BAG ONE (12:45)
[2022-11-06] MEDS ORDERED: VASOPRESSIN 20 UNITS/ML VIAL IV ONE (13:36)
[2022-11-06] MEDS: VASOPRESSIN 40 UNITS/100 ML BAG IV SCH ×2 (13:56→22:24)
[2022-11-06] MEDS: VANCOMYCIN/WATER FOR INJ (PEG) 1,000 MG/200 ML BAG IVPB SCH (13:56)
[2022-11-06] MEDS: MIDAZOLAM IN 0.9 % SOD.CHLORID 100 MG/100 ML PLAST..BAG IVPB SCH (13:56)
[2022-11-06] MEDS: CEFEPIME 1 GM in DEXTROSE 5%-WATER 100 ML IVPB SCH ×2 (14:40→17:51)
[2022-11-06] MEDS ORDERED: DOPAMINE 400 MG/D5W - 400,000 MCG/250 ML INFUS.BAG IVPB ONE (15:51)
[2022-11-06] MEDS: DOPAMINE 400 MG/D5W - 400,000 MCG/250 ML INFUS.BAG IVPB SCH ×2 (15:56→22:25)
[2022-11-06] MEDS: FLUDROCORTISONE ACETATE 0.1 MG TABLET (FP) PO SCH (17:51)
[2022-11-06] MEDS: HYDROCORTISONE SOD SUCCINATE 100 MG/2 ML VIAL IVPB SCH ×2 (18:06→20:59)
[2022-11-06] MEDS: CHLORHEXIDINE GLUCONATE 4% CLEANSER FOR DECOLONIZATION TP SCH (21:16)
[2022-11-07] MEDS: VANCOMYCIN/WATER FOR INJ (PEG) 1,000 MG/200 ML BAG IVPB SCH ×2 (00:29→13:07)
[2022-11-07] MEDS ORDERED: DEXTROSE 50%-WATER 25 GM/50 ML DISP.SYRIN IVPUSH ONE (00:36)
[2022-11-07] MEDS ORDERED: DEXTROSE 50%-WATER 25 GM/50 ML DISP.SYRIN ONE (00:37)
[2022-11-07] MEDS: CEFEPIME 1 GM in DEXTROSE 5%-WATER 100 ML IVPB SCH ×3 (01:22→17:16)
[2022-11-07] MEDS ORDERED: PIPERACILLIN/TAZOB 3.375 GM 3.375 GM in DEXTROSE 5%-WATER - 50 ML IVPB SCH (02:00)
[2022-11-07] MEDS: methylPREDNISolone NA SUCC 40 MG/1 ML VIAL IVPUSH SCH ×5 (02:52→17:16)
[2022-11-07] MEDS: FENTANYL IVPB 500 MCG/100 ML BAG IVPB SCH ×3 (04:10→12:24)
[2022-11-07 06:58] LABS: HEMATOCRIT 46.1 % (32.4-45.2); HEMOGLOBIN 14.9 GM/dL (10.7-15.3); MCH 28.4 pg (25.7-33.7); MCHC 32.4 g/dl (32.0-36.0); MEAN CELL VOLUME 87.7 fl (80-96); MEAN PLT VOLUME 9.3 fl (7.5-11.1); PLATELET COUNT 121 10^3/uL (134-434); RBC 5.26 M/mm3 (3.60-5.2)
[2022-11-07 07:03] LABS: INR 1.73 (0.83-1.09)
[2022-11-07 07:12] LABS: CHLORIDE 100 mmol/L (98-107); POTASSIUM 4.3 mmol/L (3.5-5.1); SODIUM 132 mmol/L (136-145)
[2022-11-07 07:15] LABS: BLOOD UREA NITROGEN 12.2 mg/dL (7-18); GLUCOSE,RANDOM 159 mg/dL (74-106)
[2022-11-07 07:18] LABS: ALBUMIN 1.6 g/dl (3.4-5.0); ANION GAP 13 MMOL/L (8-16); CO2 19 mmol/L (21-32); CREATININE 0.6 mg/dL (0.55-1.3); MAGNESIUM 1.8 mg/dL (1.8-2.4)
[2022-11-07 07:19] LABS: TOT PROT 4.8 g/dl (6.4-8.2)
[2022-11-07 07:20] LABS: BILIRUBIN,TOTAL 2.2 mg/dL (0.2-1)
[2022-11-07 07:21] LABS: PHOSPHOROUS 3.7 mg/dL (2.5-4.9); SGPT/ALT 48 U/L (13-61)
[2022-11-07 07:22] LABS: SGOT/AST 131 U/L (15-37)
[2022-11-07 07:24] LABS: ALK PHOS 59 U/L (45-117)
[2022-11-07 07:39] LABS: CALCIUM 6.9 mg/dL (8.5-10.1)
[2022-11-07 07:44] LABS: WHITE BLOOD COUNT 21.7 K/mm3 (4.0-10.0)
[2022-11-07] MEDS: NOREPINEPHRINE 0.9 % NACL 8 MG/250 ML BAG IVPB SCH (08:00)
[2022-11-07] MEDS: DOPAMINE 400 MG/D5W - 400,000 MCG/250 ML INFUS.BAG IVPB SCH ×2 (08:30→17:17)
[2022-11-07 09:06] LABS: GAMMA GLUTAMYL TRANSPEPTIDASE 210 U/L (5-85)
[2022-11-07 09:09] LABS: BILIRUBIN,DIRECT 1.7 mg/dL (0.0-0.2)
[2022-11-07] MEDS: ENOXAPARIN NA (PORCINE) 60 MG/0.6 ML DISP.SYRIN SQ SCH ×2 (09:14→21:31)
[2022-11-07] MEDS: FLUDROCORTISONE ACETATE 0.1 MG TABLET (FP) PO SCH (09:14)
[2022-11-07] MEDS: ASPIRIN 81 MG CHEWABLE TABLETS PO SCH (09:15)
[2022-11-07] MEDS: FOLIC ACID 1 MG TABLET (FP) PO SCH (09:15)
[2022-11-07] MEDS: PANTOPRAZOLE SODIUM 40 MG VIAL IVPUSH SCH (09:15)
[2022-11-07] MEDS: VASOPRESSIN 40 UNITS/100 ML BAG IV SCH ×2 (09:16→14:40)
[2022-11-07] MEDS: MUPIROCIN 2% TOPICAL OINTMENT FOR DECOLONIZATION NS SCH ×2 (09:27→21:31)
[2022-11-07 09:34] LABS: ANISOCYTOSIS 0; MACROCYTOSIS 0
[2022-11-07] MEDS: THIAMINE HCL 200 MG/2 ML VIAL IVPB SCH (10:07)
[2022-11-07 10:41] LABS: ARTERIAL BLD GAS O2 SATURATION 93.6 % (95-98); ARTERIAL BLOOD GAS BASE EXCESS -7.6 mmol/L (-2-2); ARTERIAL BLOOD GAS PO2 69.7 mmHg (80-100); ARTERIAL BLOOD GAS pH 7.355 (7.350-7.450)
[2022-11-07 10:43] LABS: VENT MODE A/C; VENT RATE 20
[2022-11-07] MEDS ORDERED: ALBUMIN HUMAN 25% 12.5 GM/50 ML VIAL IV ONE (12:15)
[2022-11-07] MEDS: MIDAZOLAM IN 0.9 % SOD.CHLORID 100 MG/100 ML PLAST..BAG IVPB SCH (12:23)
[2022-11-07] MEDS: FUROSEMIDE INJECTION 100 MG in SODIUM CHLORIDE 40 ML IVPB SCH (12:32)
[2022-11-07] MEDS: CHLORHEXIDINE GLUCONATE 4% CLEANSER FOR DECOLONIZATION TP SCH (21:32)
[2022-11-08] MEDS: VANCOMYCIN/WATER FOR INJ (PEG) 1,000 MG/200 ML BAG IVPB SCH (01:41)
[2022-11-08] MEDS: methylPREDNISolone NA SUCC 40 MG/1 ML VIAL IVPUSH SCH ×2 (01:41→08:35)
[2022-11-08] MEDS: CEFEPIME 1 GM in DEXTROSE 5%-WATER 100 ML IVPB SCH ×2 (01:42→09:01)
[2022-11-08] MEDS: FENTANYL IVPB 500 MCG/100 ML BAG IVPB SCH ×2 (06:27→14:49)
[2022-11-08 07:34] LABS: HEMATOCRIT 42.5 % (32.4-45.2); HEMOGLOBIN 13.6 GM/dL (10.7-15.3); MCH 27.6 pg (25.7-33.7); MEAN CELL VOLUME 86.3 fl (80-96); MEAN PLT VOLUME 9.6 fl (7.5-11.1); PLATELET COUNT 115 10^3/uL (134-434); RBC 4.92 M/mm3 (3.60-5.2); RDW 18.9 % (11.6-15.6); WHITE BLOOD COUNT 22.2 K/mm3 (4.0-10.0)
[2022-11-08 07:52] LABS: CHLORIDE 96 mmol/L (98-107); SODIUM 131 mmol/L (136-145)
[2022-11-08 07:55] LABS: ALBUMIN 1.7 g/dl (3.4-5.0); BLOOD UREA NITROGEN 16.9 mg/dL (7-18); CO2 24 mmol/L (21-32); GLUCOSE,RANDOM 206 mg/dL (74-106)
[2022-11-08 07:57] LABS: CALCIUM 7.1 mg/dL (8.5-10.1); CREATININE 0.6 mg/dL (0.55-1.3); PHOSPHOROUS 1.7 mg/dL (2.5-4.9)
[2022-11-08 07:58] LABS: SGOT/AST 281 U/L (15-37); SGPT/ALT 112 U/L (13-61)
[2022-11-08 07:59] LABS: BILIRUBIN,TOTAL 2.5 mg/dL (0.2-1); TOT PROT 4.8 g/dl (6.4-8.2)
[2022-11-08 08:00] LABS: ALK PHOS 53 U/L (45-117); MAGNESIUM 1.5 mg/dL (1.8-2.4)
[2022-11-08] MEDS ORDERED: MAGNESIUM 2GM/50ML STERILE WATER IVPB IVPB ONE (08:15)
[2022-11-08] MEDS ORDERED: NAPH,MB-DB/K PH,MBDB POWDER PACKET PO ONE ×2 (08:15→09:30)
[2022-11-08 08:38] LABS: ANION GAP 11 MMOL/L (8-16); POTASSIUM 2.9 mmol/L (3.5-5.1)
[2022-11-08] MEDS ORDERED: MAGNESIUM SULF 50% (8.12 MEQ/2 ML-1 GM VIAL) IVPB ONE (08:46)
[2022-11-08] MEDS: PANTOPRAZOLE SODIUM 40 MG VIAL IVPUSH SCH (09:00)
[2022-11-08] MEDS: NOREPINEPHRINE 0.9 % NACL 8 MG/250 ML BAG IVPB SCH ×2 (09:00→09:02)
[2022-11-08] MEDS: FLUDROCORTISONE ACETATE 0.1 MG TABLET (FP) PO SCH (09:00)
[2022-11-08] MEDS: ENOXAPARIN NA (PORCINE) 60 MG/0.6 ML DISP.SYRIN SQ SCH (09:00)
[2022-11-08] MEDS: THIAMINE HCL 200 MG/2 ML VIAL IVPB SCH (09:01)
[2022-11-08] MEDS: FOLIC ACID 1 MG TABLET (FP) PO SCH (09:01)
[2022-11-08] MEDS: MUPIROCIN 2% TOPICAL OINTMENT FOR DECOLONIZATION NS SCH ×2 (09:03→22:34)
[2022-11-08] MEDS: ASPIRIN 81 MG CHEWABLE TABLETS PO SCH (09:21)
[2022-11-08] MEDS ORDERED: POTASSIUM CHLORIDE ORAL LIQUID 20 MEQ/15 ML PO ONE ×2 (09:30→21:49)
[2022-11-08 09:51] LABS: ANISOCYTOSIS 1+; MACROCYTOSIS 0; OVALOCYTE 2+; TARGET CELLS 2+
[2022-11-08] MEDS: KCL 20 MEQ PREMIX BAG 100 ML IVPB SCH ×3 (11:00→13:00)
[2022-11-08] MEDS: ALBUMIN HUMAN 25% 100 ML VIAL IV SCH ×2 (11:46→22:32)
[2022-11-08] MEDS: HYDROCORTISONE SOD SUCCINATE 100 MG/2 ML VIAL IVPB SCH ×2 (14:15→18:45)
[2022-11-08] MEDS: FUROSEMIDE INJECTION 100 MG in SODIUM CHLORIDE 40 ML IVPB SCH (14:47)
[2022-11-08] MEDS: CEFTRIAXONE 2 GM in DEXTROSE 5%-WATER 100 ML IVPB SCH (14:49)
[2022-11-08] MEDS: VASOPRESSIN 40 UNITS/100 ML BAG IV SCH (14:49)
[2022-11-08] MEDS: MIDAZOLAM IN 0.9 % SOD.CHLORID 100 MG/100 ML PLAST..BAG IVPB SCH (14:49)
[2022-11-08] MEDS: DOPAMINE 400 MG/D5W - 400,000 MCG/250 ML INFUS.BAG IVPB SCH (17:04)
[2022-11-08 21:31] LABS: CHLORIDE 96 mmol/L (98-107); SODIUM 134 mmol/L (136-145)
[2022-11-08 21:34] LABS: CALCIUM 7.6 mg/dL (8.5-10.1)
[2022-11-08 21:35] LABS: BLOOD UREA NITROGEN 20.2 mg/dL (7-18); CO2 25 mmol/L (21-32); GLUCOSE,RANDOM 212 mg/dL (74-106)
[2022-11-08 21:38] LABS: CREATININE 0.8 mg/dL (0.55-1.3); SGOT/AST 196 U/L (15-37); SGPT/ALT 99 U/L (13-61)
[2022-11-08 21:40] LABS: ALK PHOS 47 U/L (45-117); BILIRUBIN,TOTAL 2.2 mg/dL (0.2-1); TOT PROT 5.4 g/dl (6.4-8.2)
[2022-11-08 21:47] LABS: ALBUMIN 2.3 g/dl (3.4-5.0); ANION GAP 12 MMOL/L (8-16); POTASSIUM 2.9 mmol/L (3.5-5.1)
[2022-11-08] MEDS: CHLORHEXIDINE GLUCONATE 4% CLEANSER FOR DECOLONIZATION TP SCH (22:34)
[2022-11-09 00:12] LABS: MAGNESIUM 1.7 mg/dL (1.8-2.4)
[2022-11-09 00:16] LABS: PHOSPHOROUS 1.4 mg/dL (2.5-4.9)
[2022-11-09] MEDS: DEXAMETHASONE SOD PHOSPHATE 4 MG/1 ML VIAL IVPUSH SCH ×3 (02:39→17:41)
[2022-11-09] MEDS: FENTANYL IVPB 500 MCG/100 ML BAG IVPB SCH ×2 (06:30→23:50)
[2022-11-09] MEDS: NOREPINEPHRINE 0.9 % NACL 8 MG/250 ML BAG IVPB SCH (07:15)
[2022-11-09 07:45] LABS: BASO % 0.3 % (0-2.0); HEMATOCRIT 35.4 % (32.4-45.2); HEMOGLOBIN 11.6 GM/dL (10.7-15.3); LYMPH % 4.1 % (8-40); MCH 28.2 pg (25.7-33.7); MCHC 32.9 g/dl (32.0-36.0); MEAN CELL VOLUME 85.7 fl (80-96); MEAN PLT VOLUME 9.6 fl (7.5-11.1); MONO % 9.6 % (3.8-10.2); PLATELET COUNT 60 10^3/uL (134-434); RBC 4.13 M/mm3 (3.60-5.2); RDW 18.9 % (11.6-15.6); WHITE BLOOD COUNT 10.8 K/mm3 (4.0-10.0)
[2022-11-09 08:03] LABS: CHLORIDE 97 mmol/L (98-107); POTASSIUM 3.5 mmol/L (3.5-5.1); SODIUM 134 mmol/L (136-145)
[2022-11-09 08:09] LABS: ALBUMIN 2.7 g/dl (3.4-5.0); ANION GAP 10 MMOL/L (8-16); BLOOD UREA NITROGEN 21.2 mg/dL (7-18); CALCIUM 7.8 mg/dL (8.5-10.1); CO2 27 mmol/L (21-32); GLUCOSE,RANDOM 193 mg/dL (74-106); MAGNESIUM 1.4 mg/dL (1.8-2.4)
[2022-11-09 08:13] LABS: CREATININE 0.7 mg/dL (0.55-1.3); SGOT/AST 163 U/L (15-37); SGPT/ALT 87 U/L (13-61)
[2022-11-09 08:14] LABS: BILIRUBIN,TOTAL 2.4 mg/dL (0.2-1); TOT PROT 5.5 g/dl (6.4-8.2)
[2022-11-09 08:16] LABS: ALK PHOS 50 U/L (45-117); PHOSPHOROUS 1.1 mg/dL (2.5-4.9)
[2022-11-09] MEDS: CEFTRIAXONE 2 GM in DEXTROSE 5%-WATER 100 ML IVPB SCH (09:02)
[2022-11-09] MEDS ORDERED: MAGNESIUM 2GM/50ML STERILE WATER IVPB IVPB ONE (09:03)
[2022-11-09] MEDS: THIAMINE HCL 200 MG/2 ML VIAL IVPB SCH (09:04)
[2022-11-09] MEDS: PANTOPRAZOLE SODIUM 40 MG VIAL IVPUSH SCH (09:04)
[2022-11-09] MEDS: ENOXAPARIN NA (PORCINE) 40 MG/0.4 ML DISP.SYRIN SQ SCH (09:04)
[2022-11-09] MEDS: FOLIC ACID 1 MG TABLET (FP) PO SCH (09:05)
[2022-11-09] MEDS: FLUDROCORTISONE ACETATE 0.1 MG TABLET (FP) PO SCH (09:05)
[2022-11-09] MEDS: MUPIROCIN 2% TOPICAL OINTMENT FOR DECOLONIZATION NS SCH ×2 (09:05→23:49)
[2022-11-09] MEDS: ASPIRIN 81 MG CHEWABLE TABLETS PO SCH (09:05)
[2022-11-09] MEDS ORDERED: NAPH,MB-DB/K PH,MBDB POWDER PACKET PO ONE (09:30)
[2022-11-09] MEDS ORDERED: SODIUM PHOSPHATE - 30 MM in SODIUM CHLORIDE 250 ML IVPB ONE (10:30)
[2022-11-09 13:33] VITALS: BMI 23.5
[2022-11-09] MEDS: DOPAMINE 400 MG/D5W - 400,000 MCG/250 ML INFUS.BAG IVPB SCH (17:43)
[2022-11-09] MEDS: MIDAZOLAM IN 0.9 % SOD.CHLORID 100 MG/100 ML PLAST..BAG IVPB SCH (18:35)
[2022-11-09] MEDS: VASOPRESSIN 40 UNITS/100 ML BAG IV SCH (18:36)
[2022-11-09] MEDS: CHLORHEXIDINE GLUCONATE 4% CLEANSER FOR DECOLONIZATION TP SCH (23:49)
[2022-11-10] MEDS: DEXAMETHASONE SOD PHOSPHATE 4 MG/1 ML VIAL IVPUSH SCH ×3 (01:38→17:57)
[2022-11-10] MEDS: FENTANYL IVPB 500 MCG/100 ML BAG IVPB SCH (06:38)
[2022-11-10 07:29] LABS: HEMOGLOBIN 11.3 GM/dL (10.7-15.3); MCH 27.9 pg (25.7-33.7); MCHC 33.3 g/dl (32.0-36.0); MEAN CELL VOLUME 83.9 fl (80-96); MEAN PLT VOLUME 8.9 fl (7.5-11.1); PLATELET COUNT 54 10^3/uL (134-434); RBC 4.05 M/mm3 (3.60-5.2); RDW 19.3 % (11.6-15.6); WHITE BLOOD COUNT 12.8 K/mm3 (4.0-10.0)
[2022-11-10 07:30] LABS: CHLORIDE 98 mmol/L (98-107); SODIUM 139 mmol/L (136-145)
[2022-11-10 07:32] LABS: ALBUMIN 2.3 g/dl (3.4-5.0); CO2 32 mmol/L (21-32); GLUCOSE,RANDOM 172 mg/dL (74-106)
[2022-11-10 07:33] LABS: CALCIUM 7.9 mg/dL (8.5-10.1)
[2022-11-10 07:34] LABS: MAGNESIUM 1.8 mg/dL (1.8-2.4); SGPT/ALT 72 U/L (13-61)
[2022-11-10 07:35] LABS: CREATININE 0.7 mg/dL (0.55-1.3); PHOSPHOROUS 1.6 mg/dL (2.5-4.9); SGOT/AST 116 U/L (15-37)
[2022-11-10 07:37] LABS: BILIRUBIN,TOTAL 1.7 mg/dL (0.2-1); TOT PROT 5.2 g/dl (6.4-8.2)
[2022-11-10 07:42] LABS: ALK PHOS 76 U/L (45-117)
[2022-11-10 08:18] LABS: ANION GAP 10 MMOL/L (8-16); POTASSIUM 2.2 mmol/L (3.5-5.1)
[2022-11-10] MEDS: DOCUSATE NA 100 MG/10 ML UNIT-DOSE CUPS PO SCH ×3 (08:46→21:43)
[2022-11-10] MEDS: NOREPINEPHRINE 0.9 % NACL 8 MG/250 ML BAG IVPB SCH (08:47)
[2022-11-10] MEDS ORDERED: POTASSIUM CHLORIDE ORAL LIQUID 20 MEQ/15 ML PO ONE (09:00)
[2022-11-10] MEDS: FLUDROCORTISONE ACETATE 0.1 MG TABLET (FP) PO SCH (09:04)
[2022-11-10] MEDS: ASPIRIN 81 MG CHEWABLE TABLETS PO SCH (09:04)
[2022-11-10] MEDS: PANTOPRAZOLE SODIUM 40 MG VIAL IVPUSH SCH (09:04)
[2022-11-10] MEDS: POLYETHYLENE GLYCOL (HEALTHYLAX) 3350 17 GM PACKET PO SCH ×2 (09:04→21:43)
[2022-11-10] MEDS: CEFTRIAXONE 2 GM in DEXTROSE 5%-WATER 100 ML IVPB SCH (09:05)
[2022-11-10] MEDS: ENOXAPARIN NA (PORCINE) 40 MG/0.4 ML DISP.SYRIN SQ SCH (09:05)
[2022-11-10] MEDS: THIAMINE HCL 200 MG/2 ML VIAL IVPB SCH (09:05)
[2022-11-10] MEDS: FOLIC ACID 1 MG TABLET (FP) PO SCH (09:06)
[2022-11-10] MEDS: MUPIROCIN 2% TOPICAL OINTMENT FOR DECOLONIZATION NS SCH ×2 (09:07→21:43)
[2022-11-10] MEDS ORDERED: POTASSIUM PHOSPHATE 30 MM in DEXTROSE 5%-WATER - 250 ML IVPB ONE (10:00)
[2022-11-10] MEDS: KCL 20 MEQ PREMIX BAG 100 ML IVPB SCH ×3 (10:48→12:08)
[2022-11-10] MEDS: MIDAZOLAM IN 0.9 % SOD.CHLORID 100 MG/100 ML PLAST..BAG IVPB SCH (15:16)
[2022-11-10] MEDS: VASOPRESSIN 40 UNITS/100 ML BAG IV SCH (15:17)
[2022-11-10 16:46] LABS: POTASSIUM 4.3 mmol/L (3.5-5.1)
[2022-11-10 16:49] LABS: CALCIUM 7.7 mg/dL (8.5-10.1)
[2022-11-10 16:50] LABS: MAGNESIUM 1.9 mg/dL (1.8-2.4)
[2022-11-10 16:52] LABS: CREATININE 0.6 mg/dL (0.55-1.3); PHOSPHOROUS 3.3 mg/dL (2.5-4.9)
[2022-11-10] MEDS: DOPAMINE 400 MG/D5W - 400,000 MCG/250 ML INFUS.BAG IVPB SCH (18:41)
[2022-11-10] MEDS: CHLORHEXIDINE GLUCONATE 4% CLEANSER FOR DECOLONIZATION TP SCH (21:44)
[2022-11-10] MEDS: SENNOSIDES 8.8 MG/5 ML SYRUP PO SCH (21:45)
[2022-11-11] MEDS: DEXAMETHASONE SOD PHOSPHATE 4 MG/1 ML VIAL IVPUSH SCH ×3 (02:17→17:51)
[2022-11-11 05:43] LABS: ARTERIAL BLD GAS O2 SATURATION 98.9 % (95-98); ARTERIAL BLOOD GAS PO2 125.1 mmHg (80-100); ARTERIAL BLOOD GAS pH 7.577 (7.350-7.450)
[2022-11-11 05:44] LABS: ALLENS TEST POSITIVE
[2022-11-11 05:45] LABS: VENT MODE A/C; VENT RATE 20
[2022-11-11] MEDS: DOCUSATE NA 100 MG/10 ML UNIT-DOSE CUPS PO SCH ×4 (06:33→21:52)
[2022-11-11] MEDS: NOREPINEPHRINE 0.9 % NACL 8 MG/250 ML BAG IVPB SCH (07:15)
[2022-11-11 07:35] LABS: POTASSIUM 3.9 mmol/L (3.5-5.1)
[2022-11-11 07:41] LABS: ALBUMIN 2.2 g/dl (3.4-5.0); BLOOD UREA NITROGEN 32.2 mg/dL (7-18); CALCIUM 7.9 mg/dL (8.5-10.1); MAGNESIUM 1.9 mg/dL (1.8-2.4)
[2022-11-11 07:43] LABS: PHOSPHOROUS 2.2 mg/dL (2.5-4.9)
[2022-11-11 07:44] LABS: CREATININE 0.6 mg/dL (0.55-1.3)
[2022-11-11 07:45] LABS: BILIRUBIN,TOTAL 2.4 mg/dL (0.2-1); TOT PROT 5.2 g/dl (6.4-8.2)
[2022-11-11 07:54] LABS: HEMATOCRIT 34.4 % (32.4-45.2); HEMOGLOBIN 11.3 GM/dL (10.7-15.3); MCHC 32.8 g/dl (32.0-36.0); MEAN CELL VOLUME 85.4 fl (80-96); MEAN PLT VOLUME 10.5 fl (7.5-11.1); PLATELET COUNT 66 10^3/uL (134-434); RBC 4.02 M/mm3 (3.60-5.2); RDW 18.8 % (11.6-15.6); WHITE BLOOD COUNT 12.2 K/mm3 (4.0-10.0)
[2022-11-11] MEDS ORDERED: NAPH,MB-DB/K PH,MBDB POWDER PACKET PO ONE (08:15)
[2022-11-11] MEDS: CEFTRIAXONE 2 GM in DEXTROSE 5%-WATER 100 ML IVPB SCH (09:22)
[2022-11-11] MEDS: ENOXAPARIN NA (PORCINE) 40 MG/0.4 ML DISP.SYRIN SQ SCH (09:23)
[2022-11-11] MEDS: PANTOPRAZOLE SODIUM 40 MG VIAL IVPUSH SCH (09:26)
[2022-11-11] MEDS: FOLIC ACID 1 MG TABLET (FP) PO SCH (09:27)
[2022-11-11] MEDS: ASPIRIN 81 MG CHEWABLE TABLETS PO SCH (09:27)
[2022-11-11] MEDS: FLUDROCORTISONE ACETATE 0.1 MG TABLET (FP) PO SCH (09:27)
[2022-11-11] MEDS: THIAMINE HCL 200 MG/2 ML VIAL IVPB SCH (09:27)
[2022-11-11] MEDS: POLYETHYLENE GLYCOL (HEALTHYLAX) 3350 17 GM PACKET PO SCH ×3 (11:00→21:52)
[2022-11-11] MEDS: VASOPRESSIN 40 UNITS/100 ML BAG IV SCH (17:54)
[2022-11-11] MEDS: CHLORHEXIDINE GLUCONATE 4% CLEANSER FOR DECOLONIZATION TP SCH (21:52)
[2022-11-11] MEDS: SENNOSIDES 8.8 MG/5 ML SYRUP PO SCH ×2 (21:52)
[2022-11-12] MEDS: DEXAMETHASONE SOD PHOSPHATE 4 MG/1 ML VIAL IVPUSH SCH ×3 (02:13→17:28)
[2022-11-12] MEDS: DOCUSATE NA 100 MG/10 ML UNIT-DOSE CUPS PO SCH ×3 (06:37→21:39)
[2022-11-12 07:15] LABS: HEMATOCRIT 35.7 % (32.4-45.2); HEMOGLOBIN 11.3 GM/dL (10.7-15.3); MCH 28.1 pg (25.7-33.7); MCHC 31.6 g/dl (32.0-36.0); MEAN CELL VOLUME 88.7 fl (80-96); PLATELET COUNT 61 10^3/uL (134-434); RBC 4.03 M/mm3 (3.60-5.2); RDW 19.3 % (11.6-15.6); WHITE BLOOD COUNT 13.7 K/mm3 (4.0-10.0)
[2022-11-12] MEDS: NOREPINEPHRINE 0.9 % NACL 8 MG/250 ML BAG IVPB SCH (07:15)
[2022-11-12 07:35] LABS: POTASSIUM 4.7 mmol/L (3.5-5.1)
[2022-11-12 07:39] LABS: CALCIUM 8.4 mg/dL (8.5-10.1)
[2022-11-12 07:40] LABS: ALBUMIN 2.5 g/dl (3.4-5.0); BLOOD UREA NITROGEN 42.3 mg/dL (7-18); MAGNESIUM 2.2 mg/dL (1.8-2.4)
[2022-11-12 07:43] LABS: CREATININE 0.7 mg/dL (0.55-1.3); PHOSPHOROUS 5.4 mg/dL (2.5-4.9)
[2022-11-12 07:44] LABS: BILIRUBIN,TOTAL 2.6 mg/dL (0.2-1); TOT PROT 6.2 g/dl (6.4-8.2)
[2022-11-12] MEDS: PANTOPRAZOLE SODIUM 40 MG VIAL IVPUSH SCH (09:13)
[2022-11-12] MEDS: ENOXAPARIN NA (PORCINE) 40 MG/0.4 ML DISP.SYRIN SQ SCH (09:13)
[2022-11-12] MEDS: THIAMINE HCL 200 MG/2 ML VIAL IVPB SCH (09:13)
[2022-11-12] MEDS: ASPIRIN 81 MG CHEWABLE TABLETS PO SCH (09:14)
[2022-11-12] MEDS: FOLIC ACID 1 MG TABLET (FP) PO SCH (09:14)
[2022-11-12] MEDS: POLYETHYLENE GLYCOL (HEALTHYLAX) 3350 17 GM PACKET PO SCH ×2 (09:14→21:40)
[2022-11-12] MEDS: FLUDROCORTISONE ACETATE 0.1 MG TABLET (FP) PO SCH (09:14)
[2022-11-12] MEDS: CEFTRIAXONE 2 GM in DEXTROSE 5%-WATER 100 ML IVPB SCH (09:14)
[2022-11-12 11:05] LABS: ANISOCYTOSIS 1+; MACROCYTOSIS 0; OVALOCYTE 2+; TARGET CELLS 2+; TEAR DROP CELLS 1+; TOXIC GRANULATION 2+
[2022-11-12 11:05] LABS: ARTERIAL BLD GAS O2 SATURATION 95.1 % (95-98); ARTERIAL BLOOD GAS BASE EXCESS 3.2 mmol/L (-2-2); ARTERIAL BLOOD GAS PO2 61.6 mmHg (80-100); ARTERIAL BLOOD GAS pH 7.591 (7.350-7.450)
[2022-11-12 11:09] LABS: ALLENS TEST POSITIVE
[2022-11-12 11:10] LABS: VENT MODE S/T; VENT RATE 16
[2022-11-12] MEDS: SENNOSIDES 8.8 MG/5 ML SYRUP PO SCH (21:40)
[2022-11-12] MEDS: CHLORHEXIDINE GLUCONATE 4% CLEANSER FOR DECOLONIZATION TP SCH (21:40)
[2022-11-13] MEDS: DEXAMETHASONE SOD PHOSPHATE 4 MG/1 ML VIAL IVPUSH SCH (02:02)
[2022-11-13 06:06] LABS: ARTERIAL BLD GAS O2 SATURATION 95.5 % (95-98); ARTERIAL BLOOD GAS BASE EXCESS 7.6 mmol/L (-2-2); ARTERIAL BLOOD GAS PO2 68.5 mmHg (80-100); ARTERIAL BLOOD GAS pH 7.532 (7.350-7.450)
[2022-11-13 06:07] LABS: ALLENS TEST POSITIVE; VENT MODE S/T; VENT RATE 12
[2022-11-13] MEDS: DOCUSATE NA 100 MG/10 ML UNIT-DOSE CUPS PO SCH ×2 (06:56→13:51)
[2022-11-13] MEDS: NOREPINEPHRINE 0.9 % NACL 8 MG/250 ML BAG IVPB SCH (06:57)
[2022-11-13 08:29] LABS: POTASSIUM 4.1 mmol/L (3.5-5.1)
[2022-11-13 08:31] LABS: BLOOD UREA NITROGEN 44.9 mg/dL (7-18); CALCIUM 8.5 mg/dL (8.5-10.1)
[2022-11-13 08:32] LABS: ALBUMIN 2.3 g/dl (3.4-5.0); MAGNESIUM 2.2 mg/dL (1.8-2.4)
[2022-11-13 08:35] LABS: CREATININE 0.6 mg/dL (0.55-1.3); PHOSPHOROUS 3.1 mg/dL (2.5-4.9)
[2022-11-13 08:36] LABS: BILIRUBIN,TOTAL 2.9 mg/dL (0.2-1); TOT PROT 5.6 g/dl (6.4-8.2)
[2022-11-13] MEDS ORDERED: DEXAMETHASONE SOD PHOSPHATE 4 MG/1 ML VIAL IVPUSH SCH (10:00)
[2022-11-13] MEDS: PANTOPRAZOLE SODIUM 40 MG VIAL IVPUSH SCH ×2 (10:19→22:23)
[2022-11-13] MEDS: CEFTRIAXONE 2 GM in DEXTROSE 5%-WATER 100 ML IVPB SCH (10:19)
[2022-11-13] MEDS: THIAMINE HCL 200 MG/2 ML VIAL IVPB SCH (10:20)
[2022-11-13] MEDS: ENOXAPARIN NA (PORCINE) 40 MG/0.4 ML DISP.SYRIN SQ SCH (10:20)
[2022-11-13] MEDS: FOLIC ACID 1 MG TABLET (FP) PO SCH (10:31)
[2022-11-13] MEDS: ASPIRIN 81 MG CHEWABLE TABLETS PO SCH (10:31)
[2022-11-13] MEDS: POLYETHYLENE GLYCOL (HEALTHYLAX) 3350 17 GM PACKET PO SCH ×2 (10:31→22:23)
[2022-11-13] MEDS: ESCITALOPRAM OXALATE 5 MG/5 ML PO SCH (13:23)
[2022-11-13] MEDS: DEXMEDETOMIDINE PREMIX 400 MCG/100 ML BAG IVPB SCH (15:44)
[2022-11-13 16:06] LABS: ARTERIAL BLD GAS O2 SATURATION 97.1 % (95-98); ARTERIAL BLOOD GAS BASE EXCESS 4.9 mmol/L (-2-2); ARTERIAL BLOOD GAS PO2 89.4 mmHg (80-100); ARTERIAL BLOOD GAS pH 7.449 (7.350-7.450)
[2022-11-13 16:09] LABS: ALLENS TEST POSITIVE; VENT RATE 12
[2022-11-13] MEDS ORDERED: LACTULOSE 20 GM/30 ML UDC (FOR ORAL USE ONLY) PO SCH (22:00)
[2022-11-13] MEDS: CHLORHEXIDINE GLUCONATE 4% CLEANSER FOR DECOLONIZATION TP SCH (22:23)
[2022-11-14 02:03] LABS: ARTERIAL BLD GAS O2 SATURATION 82.6 % (95-98); ARTERIAL BLOOD GAS BASE EXCESS 3.2 mmol/L (-2-2); ARTERIAL BLOOD GAS PO2 44.3 mmHg (80-100); ARTERIAL BLOOD GAS pH 7.454 (7.350-7.450)
[2022-11-14] MEDS ORDERED: RAPID SEQUENCE INTUBATION KIT NR ONE (02:10)
[2022-11-14] MEDS ORDERED: FUROSEMIDE 40 MG/4 ML INJECTABLE VIAL IVPUSH ONE (02:14)
[2022-11-14] MEDS ORDERED: ROCURONIUM BROMIDE 50 MG/5 ML VIAL IV ONE (02:35)
[2022-11-14] MEDS ORDERED: ETOMIDATE 40 MG/20 ML VIAL IVPUSH ONE (02:35)
[2022-11-14] MEDS ORDERED: PHENYLEPHRINE HCL 10 MG/1 ML SINGLE DOSE VIAL IVPB ONE (02:35)
[2022-11-14] MEDS: MIDAZOLAM IN 0.9 % SOD.CHLORID 100 MG/100 ML PLAST..BAG IVPB SCH (02:55)
[2022-11-14] MEDS: FENTANYL NS IVPB 500 MCG/100 ML BAG IVPB SCH (02:55)
[2022-11-14] MEDS: NOREPINEPHRINE 0.9 % NACL 8 MG/250 ML BAG IVPB SCH (05:10)
[2022-11-14 07:20] LABS: ARTERIAL BLD GAS O2 SATURATION 97.8 % (95-98); ARTERIAL BLOOD GAS BASE EXCESS 2.9 mmol/L (-2-2); ARTERIAL BLOOD GAS PO2 99.7 mmHg (80-100); ARTERIAL BLOOD GAS pH 7.461 (7.350-7.450)
[2022-11-14 07:22] LABS: VENT MODE A/C; VENT RATE 12
[2022-11-14 07:30] LABS: EOS % 0.2 % (0-4.5); HEMATOCRIT 31.6 % (32.4-45.2); HEMOGLOBIN 10.2 GM/dL (10.7-15.3); LYMPH % 4.6 % (8-40); MCH 28.8 pg (25.7-33.7); MCHC 32.2 g/dl (32.0-36.0); MEAN CELL VOLUME 89.5 fl (80-96); MEAN PLT VOLUME 9.1 fl (7.5-11.1); MONO % 5.4 % (3.8-10.2); NEUT % 89.8 % (42.8-82.8); PLATELET COUNT 96 10^3/uL (134-434); RBC 3.53 M/mm3 (3.60-5.2); WHITE BLOOD COUNT 15.6 K/mm3 (4.0-10.0)
[2022-11-14 07:42] LABS: POTASSIUM 3.7 mmol/L (3.5-5.1)
[2022-11-14 07:44] LABS: CALCIUM 8.5 mg/dL (8.5-10.1); INR 1.44 (0.83-1.09); PROTHROMBIN TIME (PATIENT) 16.7 SEC (9.7-13.0)
[2022-11-14 07:45] LABS: ALBUMIN 2.3 g/dl (3.4-5.0); BLOOD UREA NITROGEN 45.1 mg/dL (7-18); MAGNESIUM 2.3 mg/dL (1.8-2.4)
[2022-11-14 07:48] LABS: CREATININE 0.6 mg/dL (0.55-1.3); PHOSPHOROUS 3.7 mg/dL (2.5-4.9)
[2022-11-14 07:49] LABS: ALBUMIN 2.2 g/dl (3.4-5.0); BILIRUBIN,TOTAL 1.9 mg/dL (0.2-1)
[2022-11-14 07:50] LABS: TOT PROT 5.4 g/dl (6.4-8.2)
[2022-11-14 07:53] LABS: BILIRUBIN,TOTAL 1.9 mg/dL (0.2-1); TOT PROT 5.3 g/dl (6.4-8.2)
[2022-11-14] MEDS ORDERED: DEXAMETHASONE SOD PHOSPHATE 4 MG/1 ML VIAL IVPUSH SCH (10:00)
[2022-11-14] MEDS ORDERED: SPIRONOLACTONE 25 MG TABLET PO SCH (10:00)
[2022-11-14] MEDS ORDERED: LACTATED RINGERS SOLUTION 1,000 ML/1,000 ML INFUS.BAG IV SCH (10:15)
[2022-11-14] MEDS: ALBUTEROL SO4 2.5/IPRATROPIUM 0.5 INH SOL 3 ML VIAL.NEB. NEB PRN (10:25)
[2022-11-14] MEDS: SPIRONOLACTONE 25 MG TABLET PO SCH (10:30)
[2022-11-14] MEDS: ENOXAPARIN NA (PORCINE) 40 MG/0.4 ML DISP.SYRIN SQ SCH (10:35)
[2022-11-14] MEDS: PANTOPRAZOLE SODIUM 40 MG VIAL IVPUSH SCH ×2 (10:36→21:59)
[2022-11-14] MEDS: CEFTRIAXONE 2 GM in DEXTROSE 5%-WATER 100 ML IVPB SCH (10:36)
[2022-11-14] MEDS: THIAMINE HCL 200 MG/2 ML VIAL IVPB SCH (10:36)
[2022-11-14] MEDS: POLYETHYLENE GLYCOL (HEALTHYLAX) 3350 17 GM PACKET PO SCH ×2 (10:37→21:58)
[2022-11-14] MEDS: ASPIRIN 81 MG CHEWABLE TABLETS PO SCH (10:37)
[2022-11-14] MEDS: LACTULOSE 20 GM/30 ML UDC (FOR ORAL USE ONLY) GT SCH ×2 (11:00→21:58)
[2022-11-14] MEDS: ESCITALOPRAM OXALATE 5 MG/5 ML PO SCH (11:21)
[2022-11-14] MEDS: FOLIC ACID 1 MG TABLET (FP) PO SCH (11:22)
[2022-11-14 12:46] LABS: HEPATITIS B SURFACE AG MATERN NON-REACTIVE (NONREACTIVE)
[2022-11-14] MEDS ORDERED: INSULIN (LEVEMIR) 100 UNITS/ML UNITS SQ ONE (21:19)
[2022-11-14] MEDS: DEXMEDETOMIDINE PREMIX 400 MCG/100 ML BAG IVPB SCH (21:58)
[2022-11-14] MEDS: CHLORHEXIDINE GLUCONATE 4% CLEANSER FOR DECOLONIZATION TP SCH (21:59)
[2022-11-15] MEDS: MIDAZOLAM IN 0.9 % SOD.CHLORID 100 MG/100 ML PLAST..BAG IVPB SCH (05:45)
[2022-11-15] MEDS: FENTANYL NS IVPB 500 MCG/100 ML BAG IVPB SCH (05:46)
[2022-11-15 07:03] LABS: BASO % 0.2 % (0-2.0); EOS % 0.3 % (0-4.5); HEMATOCRIT 32.4 % (32.4-45.2); HEMOGLOBIN 10.5 GM/dL (10.7-15.3); LYMPH % 6.6 % (8-40); MCH 29.2 pg (25.7-33.7); MCHC 32.3 g/dl (32.0-36.0); MEAN CELL VOLUME 90.4 fl (80-96); MEAN PLT VOLUME 9.5 fl (7.5-11.1); MONO % 9.8 % (3.8-10.2); NEUT % 83.1 % (42.8-82.8); PLATELET COUNT 130 10^3/uL (134-434); RBC 3.59 M/mm3 (3.60-5.2); RDW 19.5 % (11.6-15.6); WHITE BLOOD COUNT 12.9 K/mm3 (4.0-10.0)
[2022-11-15 07:12] LABS: INR 1.43 (0.83-1.09); PROTHROMBIN TIME (PATIENT) 16.5 SEC (9.7-13.0)
[2022-11-15 07:21] LABS: POTASSIUM 3.6 mmol/L (3.5-5.1)
[2022-11-15 07:27] LABS: ALBUMIN 2.2 g/dl (3.4-5.0); BLOOD UREA NITROGEN 41.4 mg/dL (7-18); CALCIUM 8.2 mg/dL (8.5-10.1); MAGNESIUM 2.1 mg/dL (1.8-2.4)
[2022-11-15 07:30] LABS: BILIRUBIN,DIRECT 0.8 mg/dL (0.0-0.2); CREATININE 0.6 mg/dL (0.55-1.3); PHOSPHOROUS 3.2 mg/dL (2.5-4.9)
[2022-11-15 07:31] LABS: BILIRUBIN,TOTAL 1.5 mg/dL (0.2-1); TOT PROT 5.4 g/dl (6.4-8.2)
[2022-11-15] MEDS ORDERED: DEXAMETHASONE SOD PHOSPHATE 4 MG/1 ML VIAL IVPUSH SCH (10:00)
[2022-11-15] MEDS: CEFTRIAXONE 2 GM in DEXTROSE 5%-WATER 100 ML IVPB SCH (10:14)
[2022-11-15] MEDS: ENOXAPARIN NA (PORCINE) 40 MG/0.4 ML DISP.SYRIN SQ SCH (10:16)
[2022-11-15] MEDS: PANTOPRAZOLE SODIUM 40 MG VIAL IVPUSH SCH ×2 (10:18→21:12)
[2022-11-15] MEDS: THIAMINE HCL 200 MG/2 ML VIAL IVPB SCH (10:18)
[2022-11-15] MEDS: DEXMEDETOMIDINE PREMIX 400 MCG/100 ML BAG IVPB SCH (11:00)
[2022-11-15] MEDS: NOREPINEPHRINE 0.9 % NACL 8 MG/250 ML BAG IVPB SCH (12:00)
[2022-11-15] MEDS: BACITRACIN ZINC 15 GM TUBE TOPICAL OINTMENT TP SCH (13:00)
[2022-11-15] MEDS ORDERED: PROPOFOL 1,000,000 MCG/100 ML VIAL ONE (13:17)
[2022-11-15] MEDS ORDERED: PROPOFOL 1,000,000 MCG/100 ML VIAL IVPB SCH (13:30)
[2022-11-15] MEDS ORDERED: MIDAZOLAM HCL 5 MG/1 ML Single Dose Vial IVPUSH ONE (14:01)
[2022-11-15] MEDS ORDERED: ALBUMIN HUMAN 25% 12.5 GM/50 ML VIAL IV ONE (15:48)
[2022-11-15 17:50] LABS: BF WBC & OTHER NUCLEATED CELLS 51 /mm3
[2022-11-15] MEDS: ASPIRIN 81 MG CHEWABLE TABLETS PO SCH (18:00)
[2022-11-15] MEDS: SPIRONOLACTONE 25 MG TABLET PO SCH (18:06)
[2022-11-15] MEDS: LACTULOSE 20 GM/30 ML UDC (FOR ORAL USE ONLY) GT SCH ×2 (18:07→21:11)
[2022-11-15] MEDS: FOLIC ACID 1 MG TABLET (FP) PO SCH (18:10)
[2022-11-15] MEDS: ESCITALOPRAM OXALATE 5 MG/5 ML PO SCH (18:12)
[2022-11-15 19:28] LABS: BODY FLUID MACROPHAGES 45 %; BODY FLUID MESOTHELIAL 3 %; BODY FLUID MONOCYTE 6 %
[2022-11-15] MEDS: CHLORHEXIDINE GLUCONATE 4% CLEANSER FOR DECOLONIZATION TP SCH (21:33)
[2022-11-16 07:26] LABS: BASO % 0.1 % (0-2.0); EOS % 0.4 % (0-4.5); HEMOGLOBIN 9.6 GM/dL (10.7-15.3); LYMPH % 11.6 % (8-40); MCH 29.9 pg (25.7-33.7); MEAN CELL VOLUME 90.4 fl (80-96); MEAN PLT VOLUME 9.1 fl (7.5-11.1); MONO % 11.2 % (3.8-10.2); NEUT % 76.7 % (42.8-82.8); PLATELET COUNT 108 10^3/uL (134-434); RBC 3.21 M/mm3 (3.60-5.2); RDW 19.3 % (11.6-15.6); WHITE BLOOD COUNT 9.9 K/mm3 (4.0-10.0)
[2022-11-16 07:27] LABS: INR 1.33 (0.83-1.09); PROTHROMBIN TIME (PATIENT) 15.4 SEC (9.7-13.0)
[2022-11-16 07:40] LABS: POTASSIUM 3.4 mmol/L (3.5-5.1)
[2022-11-16 07:46] LABS: ALBUMIN 2.4 g/dl (3.4-5.0); BLOOD UREA NITROGEN 33.2 mg/dL (7-18); CALCIUM 8.4 mg/dL (8.5-10.1); MAGNESIUM 2.1 mg/dL (1.8-2.4)
[2022-11-16 07:49] LABS: BILIRUBIN,DIRECT 0.8 mg/dL (0.0-0.2); CREATININE 0.6 mg/dL (0.55-1.3); PHOSPHOROUS 3.2 mg/dL (2.5-4.9)
[2022-11-16 07:51] LABS: BILIRUBIN,TOTAL 1.6 mg/dL (0.2-1); TOT PROT 5.5 g/dl (6.4-8.2)
[2022-11-16] MEDS ORDERED: DEXTROSE 5%-0.45% SALINE 1,000 ML IV SCH (08:45)
[2022-11-16] MEDS ORDERED: KCL 10 MEQ IVPB 10 MEQ/100 ML INFUS.BAG IVPB SCH (09:15)
[2022-11-16] MEDS ORDERED: DEXAMETHASONE SOD PHOSPHATE 4 MG/1 ML VIAL IVPUSH SCH (10:00)
[2022-11-16] MEDS: ESCITALOPRAM OXALATE 5 MG/5 ML PO SCH (10:11)
[2022-11-16] MEDS: CEFTRIAXONE 2 GM in DEXTROSE 5%-WATER 100 ML IVPB SCH (10:11)
[2022-11-16] MEDS: ENOXAPARIN NA (PORCINE) 40 MG/0.4 ML DISP.SYRIN SQ SCH (10:11)
[2022-11-16] MEDS: BACITRACIN ZINC 15 GM TUBE TOPICAL OINTMENT TP SCH (10:12)
[2022-11-16] MEDS: PANTOPRAZOLE SODIUM 40 MG VIAL IVPUSH SCH ×2 (10:12→21:44)
[2022-11-16] MEDS: FOLIC ACID 1 MG TABLET (FP) PO SCH (10:12)
[2022-11-16] MEDS: SPIRONOLACTONE 25 MG TABLET PO SCH (10:12)
[2022-11-16] MEDS: ASPIRIN 81 MG CHEWABLE TABLETS PO SCH (10:12)
[2022-11-16] MEDS: THIAMINE HCL 200 MG/2 ML VIAL IVPB SCH (10:12)
[2022-11-16] MEDS: POTASSIUM CHLORIDE 20 MEQ in DEXTROSE 5%-WATER - 1,000 ML IV SCH (11:00)
[2022-11-16] MEDS: LACTULOSE 20 GM/30 ML UDC (FOR ORAL USE ONLY) GT SCH ×2 (11:04→21:44)
[2022-11-16] MEDS: NOREPINEPHRINE 0.9 % NACL 8 MG/250 ML BAG IVPB SCH (13:30)
[2022-11-16] MEDS: AMINO ACIDS 4.25%/D5W 1,000 ML IV SCH (17:16)
[2022-11-16 17:21] LABS: POTASSIUM 3.7 mmol/L (3.5-5.1)
[2022-11-16 17:22] LABS: CALCIUM 7.9 mg/dL (8.5-10.1)
[2022-11-16 17:23] LABS: BLOOD UREA NITROGEN 27.1 mg/dL (7-18)
[2022-11-16 17:26] LABS: CREATININE 0.6 mg/dL (0.55-1.3)
[2022-11-16 19:49] LABS: BASO % 0.1 % (0-2.0); HEMATOCRIT 24.1 % (32.4-45.2); HEMOGLOBIN 7.8 GM/dL (10.7-15.3); LYMPH % 11.1 % (8-40); MCH 29.3 pg (25.7-33.7); MCHC 32.4 g/dl (32.0-36.0); MEAN CELL VOLUME 90.6 fl (80-96); MEAN PLT VOLUME 8.8 fl (7.5-11.1); MONO % 11.2 % (3.8-10.2); NEUT % 76.6 % (42.8-82.8); PLATELET COUNT 71 10^3/uL (134-434); RBC 2.66 M/mm3 (3.60-5.2); WHITE BLOOD COUNT 5.2 K/mm3 (4.0-10.0)
[2022-11-16] MEDS: CHLORHEXIDINE GLUCONATE 4% CLEANSER FOR DECOLONIZATION TP SCH (21:44)
[2022-11-16] MEDS: DEXMEDETOMIDINE PREMIX 400 MCG/100 ML BAG IVPB SCH (22:18)
[2022-11-17 00:48] LABS: BASO % 0.2 % (0-2.0); EOS % 1.1 % (0-4.5); HEMATOCRIT 25.2 % (32.4-45.2); LYMPH % 8.5 % (8-40); MCH 29.1 pg (25.7-33.7); MCHC 31.8 g/dl (32.0-36.0); MEAN CELL VOLUME 91.3 fl (80-96); MEAN PLT VOLUME 8.7 fl (7.5-11.1); MONO % 9.9 % (3.8-10.2); NEUT % 80.3 % (42.8-82.8); PLATELET COUNT 68 10^3/uL (134-434); RBC 2.76 M/mm3 (3.60-5.2); RDW 19.7 % (11.6-15.6); WHITE BLOOD COUNT 5.5 K/mm3 (4.0-10.0)
[2022-11-17 07:08] LABS: BASO % 0.1 % (0-2.0); EOS % 1.2 % (0-4.5); HEMATOCRIT 25.9 % (32.4-45.2); HEMOGLOBIN 8.2 GM/dL (10.7-15.3); LYMPH % 7.7 % (8-40); MCH 29.8 pg (25.7-33.7); MCHC 31.9 g/dl (32.0-36.0); MEAN CELL VOLUME 93.6 fl (80-96); MEAN PLT VOLUME 9.7 fl (7.5-11.1); MONO % 8.1 % (3.8-10.2); NEUT % 82.9 % (42.8-82.8); PLATELET COUNT 70 10^3/uL (134-434); RBC 2.76 M/mm3 (3.60-5.2); RDW 20.3 % (11.6-15.6); WHITE BLOOD COUNT 6.7 K/mm3 (4.0-10.0)
[2022-11-17 07:27] LABS: POTASSIUM 3.7 mmol/L (3.5-5.1)
[2022-11-17 07:30] LABS: ALBUMIN 2.2 g/dl (3.4-5.0); MAGNESIUM 1.9 mg/dL (1.8-2.4)
[2022-11-17 07:33] LABS: CREATININE 0.4 mg/dL (0.55-1.3); PHOSPHOROUS 2.4 mg/dL (2.5-4.9)
[2022-11-17 07:34] LABS: TOT PROT 5.3 g/dl (6.4-8.2)
[2022-11-17] MEDS: NOREPINEPHRINE 0.9 % NACL 8 MG/250 ML BAG IVPB SCH ×2 (08:45→22:00)
[2022-11-17] MEDS: CEFTRIAXONE 2 GM in DEXTROSE 5%-WATER 100 ML IVPB SCH (09:34)
[2022-11-17] MEDS: THIAMINE HCL 200 MG/2 ML VIAL IVPB SCH (09:35)
[2022-11-17] MEDS: BACITRACIN ZINC 15 GM TUBE TOPICAL OINTMENT TP SCH (09:35)
[2022-11-17] MEDS: PANTOPRAZOLE SODIUM 40 MG VIAL IVPUSH SCH ×2 (09:35→21:34)
[2022-11-17] MEDS: ENOXAPARIN NA (PORCINE) 40 MG/0.4 ML DISP.SYRIN SQ SCH (09:35)
[2022-11-17] MEDS: SPIRONOLACTONE 25 MG TABLET PO SCH (09:35)
[2022-11-17] MEDS: ASPIRIN 81 MG CHEWABLE TABLETS PO SCH (09:35)
[2022-11-17] MEDS: FOLIC ACID 1 MG TABLET (FP) PO SCH (09:36)
[2022-11-17] MEDS: LACTULOSE 20 GM/30 ML UDC (FOR ORAL USE ONLY) GT SCH ×2 (09:36→21:16)
[2022-11-17] MEDS: ESCITALOPRAM OXALATE 5 MG/5 ML PO SCH (09:37)
[2022-11-17] MEDS ORDERED: DEXAMETHASONE SOD PHOSPHATE 4 MG/1 ML VIAL IVPUSH SCH ×2 (10:00)
[2022-11-17] MEDS: ALBUTEROL SO4 2.5/IPRATROPIUM 0.5 INH SOL 3 ML VIAL.NEB. NEB PRN (11:26)
[2022-11-17 14:13] LABS: BODY FLUID ALBUMIN 0.7 g/dL (Not Estab.)
[2022-11-17] MEDS: AMINO ACIDS 4.25%/D5W 1,000 ML IV SCH (14:46)
[2022-11-17] MEDS: DEXMEDETOMIDINE PREMIX 400 MCG/100 ML BAG IVPB SCH ×2 (14:47→21:34)
[2022-11-17] MEDS: POTASSIUM CHLORIDE 20 MEQ in DEXTROSE 5%-WATER - 1,000 ML IV SCH (18:52)
[2022-11-17] MEDS: POLYETHYLENE GLYCOL (HEALTHYLAX) 3350 17 GM PACKET PO SCH (18:53)
[2022-11-17] MEDS ORDERED: FUROSEMIDE 40 MG/4 ML INJECTABLE VIAL IVPUSH ONE (21:17)
[2022-11-17] MEDS: CHLORHEXIDINE GLUCONATE 4% CLEANSER FOR DECOLONIZATION TP SCH (21:34)
[2022-11-18] MEDS: FUROSEMIDE 40 MG/4 ML INJECTABLE VIAL IVPUSH SCH ×2 (06:36→13:00)
[2022-11-18 07:10] LABS: POTASSIUM 3.3 mmol/L (3.5-5.1)
[2022-11-18 07:13] LABS: BLOOD UREA NITROGEN 23.4 mg/dL (7-18); MAGNESIUM 1.7 mg/dL (1.8-2.4)
[2022-11-18 07:16] LABS: BASO % 0.3 % (0-2.0); CREATININE 0.4 mg/dL (0.55-1.3); EOS % 1.3 % (0-4.5); HEMATOCRIT 28.7 % (32.4-45.2); HEMOGLOBIN 9.2 GM/dL (10.7-15.3); MCH 30.1 pg (25.7-33.7); MEAN CELL VOLUME 93.9 fl (80-96); MEAN PLT VOLUME 9.2 fl (7.5-11.1); MONO % 8.4 % (3.8-10.2); PHOSPHOROUS 1.8 mg/dL (2.5-4.9); PLATELET COUNT 87 10^3/uL (134-434); RBC 3.06 M/mm3 (3.60-5.2); RDW 19.4 % (11.6-15.6); WHITE BLOOD COUNT 7.6 K/mm3 (4.0-10.0)
[2022-11-18 07:17] LABS: BILIRUBIN,TOTAL 0.9 mg/dL (0.2-1); TOT PROT 4.9 g/dl (6.4-8.2)
[2022-11-18] MEDS: THIAMINE HCL 200 MG/2 ML VIAL IVPB SCH (09:26)
[2022-11-18] MEDS: CEFTRIAXONE 2 GM in DEXTROSE 5%-WATER 100 ML IVPB SCH (09:26)
[2022-11-18] MEDS: PANTOPRAZOLE SODIUM 40 MG VIAL IVPUSH SCH ×2 (09:26→21:50)
[2022-11-18] MEDS: ENOXAPARIN NA (PORCINE) 40 MG/0.4 ML DISP.SYRIN SQ SCH (09:26)
[2022-11-18] MEDS: ASPIRIN 81 MG CHEWABLE TABLETS PO SCH (09:27)
[2022-11-18] MEDS: FOLIC ACID 1 MG TABLET (FP) PO SCH (09:27)
[2022-11-18] MEDS: SPIRONOLACTONE 25 MG TABLET PO SCH (09:27)
[2022-11-18] MEDS: LACTULOSE 20 GM/30 ML UDC (FOR ORAL USE ONLY) GT SCH ×3 (09:28→21:41)
[2022-11-18] MEDS: DEXMEDETOMIDINE PREMIX 400 MCG/100 ML BAG IVPB SCH ×3 (09:43→19:00)
[2022-11-18] MEDS: ESCITALOPRAM OXALATE 10 MG TABLET PO SCH (10:58)
[2022-11-18] MEDS: BACITRACIN ZINC 15 GM TUBE TOPICAL OINTMENT TP SCH (10:59)
[2022-11-18] MEDS: ESCITALOPRAM OXALATE 5 MG/5 ML PO SCH (11:00)
[2022-11-18] MEDS: KCL IVPB SCH ×3 (11:45→13:22)
[2022-11-18] MEDS: [UNRECOGNIZED DRUG - OTHER] IVPB SCH ×3 (11:45→13:22)
[2022-11-18] MEDS ORDERED: RAPID SEQUENCE INTUBATION KIT NR ONE (13:05)
[2022-11-18] MEDS ORDERED: FENTANYL IVPB 500 MCG/100 ML BAG IVPB SCH (14:00)
[2022-11-18] MEDS ORDERED: FENTANYL NS IVPB 500 MCG/100 ML BAG IVPB ONE (14:22)
[2022-11-18] MEDS: AMINO ACIDS 4.25%/D5W 1,000 ML IV SCH (16:13)
[2022-11-18] MEDS: PROPOFOL 1,000,000 MCG/100 ML VIAL IVPB SCH (18:50)
[2022-11-18] MEDS: CHLORHEXIDINE GLUCONATE 4% CLEANSER FOR DECOLONIZATION TP SCH (21:50)
[2022-11-18] MEDS: NOREPINEPHRINE 0.9 % NACL 8 MG/250 ML BAG IVPB SCH (21:50)
[2022-11-18] MEDS: FENTANYL NS IVPB 500 MCG/100 ML BAG IVPB SCH (21:51)
[2022-11-19] MEDS: FUROSEMIDE 40 MG/4 ML INJECTABLE VIAL IVPUSH SCH (05:25)
[2022-11-19 06:54] LABS: BASO % 0.4 % (0-2.0); EOS % 1.9 % (0-4.5); HEMOGLOBIN 9.8 GM/dL (10.7-15.3); LYMPH % 10.9 % (8-40); MCH 30.5 pg (25.7-33.7); MCHC 32.6 g/dl (32.0-36.0); MEAN CELL VOLUME 93.5 fl (80-96); MEAN PLT VOLUME 10.2 fl (7.5-11.1); MONO % 9.5 % (3.8-10.2); NEUT % 77.3 % (42.8-82.8); PLATELET COUNT 113 10^3/uL (134-434); RBC 3.21 M/mm3 (3.60-5.2); RDW 21.1 % (11.6-15.6); WHITE BLOOD COUNT 10.8 K/mm3 (4.0-10.0)
[2022-11-19 07:16] LABS: ALBUMIN 1.9 g/dl (3.4-5.0); BLOOD UREA NITROGEN 22.2 mg/dL (7-18); MAGNESIUM 1.3 mg/dL (1.8-2.4)
[2022-11-19 07:17] LABS: CALCIUM 7.6 mg/dL (8.5-10.1)
[2022-11-19 07:19] LABS: BILIRUBIN,DIRECT 0.5 mg/dL (0.0-0.2); CREATININE 0.4 mg/dL (0.55-1.3); PHOSPHOROUS 1.6 mg/dL (2.5-4.9)
[2022-11-19 07:20] LABS: BILIRUBIN,TOTAL 0.8 mg/dL (0.2-1)
[2022-11-19] MEDS ORDERED: MAGNESIUM SULF 50% (8.12 MEQ/2 ML-1 GM VIAL) IVPB ONE (08:48)
[2022-11-19] MEDS: FENTANYL NS IVPB 500 MCG/100 ML BAG IVPB SCH ×2 (09:24→20:34)
[2022-11-19] MEDS: THIAMINE HCL 200 MG/2 ML VIAL IVPB SCH (09:26)
[2022-11-19] MEDS: CEFTRIAXONE 2 GM in DEXTROSE 5%-WATER 100 ML IVPB SCH (09:26)
[2022-11-19] MEDS: PANTOPRAZOLE SODIUM 40 MG VIAL IVPUSH SCH ×2 (09:26→21:11)
[2022-11-19] MEDS: ENOXAPARIN NA (PORCINE) 40 MG/0.4 ML DISP.SYRIN SQ SCH (09:26)
[2022-11-19] MEDS: SPIRONOLACTONE 25 MG TABLET PO SCH (09:27)
[2022-11-19] MEDS: ASPIRIN 81 MG CHEWABLE TABLETS PO SCH (09:27)
[2022-11-19] MEDS: LACTULOSE 20 GM/30 ML UDC (FOR ORAL USE ONLY) GT SCH ×2 (09:28→21:11)
[2022-11-19] MEDS: ESCITALOPRAM OXALATE 10 MG TABLET PO SCH (09:28)
[2022-11-19] MEDS: FOLIC ACID 1 MG TABLET (FP) PO SCH (09:28)
[2022-11-19] MEDS: POTASSIUM CHLORIDE ORAL LIQUID 20 MEQ/15 ML PO ONE ×2 (10:01→18:05)
[2022-11-19] MEDS: BACITRACIN ZINC 15 GM TUBE TOPICAL OINTMENT TP SCH (10:02)
[2022-11-19] MEDS ORDERED: KCL 20 MEQ PREMIX BAG 100 ML IVPB ONE ×2 (11:00→12:00)
[2022-11-19] MEDS: NOREPINEPHRINE 0.9 % NACL 8 MG/250 ML BAG IVPB SCH (13:09)
[2022-11-19] MEDS: PROPOFOL 1,000,000 MCG/100 ML VIAL IVPB SCH (13:13)
[2022-11-19] MEDS: AMINO ACIDS 4.25%/D5W 1,000 ML IV SCH (18:04)
[2022-11-19] MEDS: CHLORHEXIDINE GLUCONATE 4% CLEANSER FOR DECOLONIZATION TP SCH (21:12)
[2022-11-20] MEDS: PROPOFOL 1,000,000 MCG/100 ML VIAL IVPB SCH ×3 (01:40→19:45)
[2022-11-20] MEDS: FUROSEMIDE 40 MG/4 ML INJECTABLE VIAL IVPUSH SCH ×2 (06:51→13:57)
[2022-11-20 07:03] LABS: BASO % 0.4 % (0-2.0); EOS % 2.1 % (0-4.5); HEMATOCRIT 30.8 % (32.4-45.2); HEMOGLOBIN 10.1 GM/dL (10.7-15.3); LYMPH % 8.4 % (8-40); MCH 30.5 pg (25.7-33.7); MCHC 32.7 g/dl (32.0-36.0); MEAN CELL VOLUME 93.3 fl (80-96); MEAN PLT VOLUME 9.5 fl (7.5-11.1); MONO % 8.5 % (3.8-10.2); NEUT % 80.6 % (42.8-82.8); PLATELET COUNT 92 10^3/uL (134-434); RBC 3.31 M/mm3 (3.60-5.2); RDW 21.8 % (11.6-15.6); WHITE BLOOD COUNT 11.3 K/mm3 (4.0-10.0)
[2022-11-20 07:11] LABS: POTASSIUM 3.8 mmol/L (3.5-5.1)
[2022-11-20 07:16] LABS: BLOOD UREA NITROGEN 20.2 mg/dL (7-18); CALCIUM 7.3 mg/dL (8.5-10.1); MAGNESIUM 1.6 mg/dL (1.8-2.4)
[2022-11-20 07:17] LABS: ALBUMIN 1.9 g/dl (3.4-5.0)
[2022-11-20 07:20] LABS: CREATININE 0.4 mg/dL (0.55-1.3); PHOSPHOROUS 1.4 mg/dL (2.5-4.9)
[2022-11-20 07:21] LABS: BILIRUBIN,TOTAL 0.8 mg/dL (0.2-1); TOT PROT 4.9 g/dl (6.4-8.2)
[2022-11-20] MEDS: PANTOPRAZOLE SODIUM 40 MG VIAL IVPUSH SCH ×2 (09:28→21:37)
[2022-11-20] MEDS: CEFTRIAXONE 2 GM in DEXTROSE 5%-WATER 100 ML IVPB SCH (09:28)
[2022-11-20] MEDS: THIAMINE HCL 200 MG/2 ML VIAL IVPB SCH (09:28)
[2022-11-20] MEDS: ASPIRIN 81 MG CHEWABLE TABLETS PO SCH (09:29)
[2022-11-20] MEDS: FOLIC ACID 1 MG TABLET (FP) PO SCH (09:29)
[2022-11-20] MEDS: ESCITALOPRAM OXALATE 10 MG TABLET PO SCH (09:29)
[2022-11-20] MEDS: LACTULOSE 20 GM/30 ML UDC (FOR ORAL USE ONLY) GT SCH ×2 (09:29→21:37)
[2022-11-20] MEDS: SPIRONOLACTONE 25 MG TABLET PO SCH (09:29)
[2022-11-20] MEDS: ENOXAPARIN NA (PORCINE) 40 MG/0.4 ML DISP.SYRIN SQ SCH (09:30)
[2022-11-20] MEDS: BACITRACIN ZINC 15 GM TUBE TOPICAL OINTMENT TP SCH (09:30)
[2022-11-20 11:41] LABS: ARTERIAL BLD GAS O2 SATURATION 74.1 % (95-98); ARTERIAL BLOOD GAS BASE EXCESS -1.1 mmol/L (-2-2); ARTERIAL BLOOD GAS PO2 52.5 mmHg (80-100); ARTERIAL BLOOD GAS pH 7.135 (7.350-7.450)
[2022-11-20] MEDS ORDERED: RAPID SEQUENCE INTUBATION KIT NR ONE (11:47)
[2022-11-20 11:48] LABS: ALLENS TEST POSITIVE
[2022-11-20] MEDS: ACETYLCYSTEINE 20% 200MG/ML 4 ML VIAL *FOR ORAL / INH USE ONLY NEB SCH ×3 (11:48→20:44)
[2022-11-20] MEDS: ALBUTEROL SO4 0.083% IH SOL 2.5 MG/3 ML VIAL.NEB. NEB SCH ×3 (11:49→20:44)
[2022-11-20] MEDS ORDERED: MAGNESIUM 2GM/50ML STERILE WATER IVPB IVPB ONE (12:45)
[2022-11-20] MEDS: NOREPINEPHRINE 0.9 % NACL 8 MG/250 ML BAG IVPB SCH (12:59)
[2022-11-20] MEDS ORDERED: SODIUM PHOSPHATE - 30 MM in SODIUM CHLORIDE 250 ML IVPB ONE (13:00)
[2022-11-20] MEDS: AMINO ACIDS 4.25%/D5W 1,000 ML IV SCH (15:21)
[2022-11-20 16:32] LABS: ARTERIAL BLD GAS O2 SATURATION 97.1 % (95-98); ARTERIAL BLOOD GAS BASE EXCESS 3.6 mmol/L (-2-2); ARTERIAL BLOOD GAS PO2 91.3 mmHg (80-100); ARTERIAL BLOOD GAS pH 7.425 (7.350-7.450)
[2022-11-20 16:35] LABS: ALLENS TEST POSITIVE
[2022-11-20 16:36] LABS: VENT MODE A/C; VENT RATE 14
[2022-11-20] MEDS: CHLORHEXIDINE GLUCONATE 4% CLEANSER FOR DECOLONIZATION TP SCH (21:37)
[2022-11-20] MEDS: FENTANYL NS IVPB 500 MCG/100 ML BAG IVPB SCH (22:05)
[2022-11-21] MEDS: PROPOFOL 1,000,000 MCG/100 ML VIAL IVPB SCH ×2 (03:05→21:15)
[2022-11-21] MEDS: FUROSEMIDE 40 MG/4 ML INJECTABLE VIAL IVPUSH SCH (06:22)
[2022-11-21] MEDS: FENTANYL NS IVPB 500 MCG/100 ML BAG IVPB SCH ×2 (06:25→17:19)
[2022-11-21 06:37] LABS: BASO % 0.9 % (0-2.0); EOS % 1.5 % (0-4.5); HEMATOCRIT 29.6 % (32.4-45.2); HEMOGLOBIN 9.6 GM/dL (10.7-15.3); LYMPH % 6.3 % (8-40); MCH 30.3 pg (25.7-33.7); MCHC 32.5 g/dl (32.0-36.0); MEAN CELL VOLUME 93.3 fl (80-96); MEAN PLT VOLUME 9.9 fl (7.5-11.1); MONO % 9.8 % (3.8-10.2); NEUT % 81.5 % (42.8-82.8); PLATELET COUNT 107 10^3/uL (134-434); RBC 3.17 M/mm3 (3.60-5.2); RDW 22.5 % (11.6-15.6)
[2022-11-21 06:56] LABS: CHLORIDE 104 mmol/L (98-107); SODIUM 141 mmol/L (136-145)
[2022-11-21 06:59] LABS: ALBUMIN 1.8 g/dl (3.4-5.0); BLOOD UREA NITROGEN 17.3 mg/dL (7-18); CALCIUM 7.2 mg/dL (8.5-10.1); CO2 32 mmol/L (21-32); GLUCOSE,RANDOM 132 mg/dL (74-106); MAGNESIUM 1.8 mg/dL (1.8-2.4)
[2022-11-21 07:02] LABS: CREATININE 0.5 mg/dL (0.55-1.3); PHOSPHOROUS 2.5 mg/dL (2.5-4.9); SGOT/AST 49 U/L (15-37); SGPT/ALT 29 U/L (13-61)
[2022-11-21 07:04] LABS: BILIRUBIN,TOTAL 0.7 mg/dL (0.2-1)
[2022-11-21 07:13] LABS: ALK PHOS 180 U/L (45-117); ANION GAP 4 MMOL/L (8-16); POTASSIUM 2.8 mmol/L (3.5-5.1)
[2022-11-21] MEDS: NOREPINEPHRINE 0.9 % NACL 8 MG/250 ML BAG IVPB SCH ×2 (08:13→17:20)
[2022-11-21] MEDS: KCL 10 MEQ IVPB 10 MEQ/100 ML INFUS.BAG IVPB SCH ×2 (08:13→08:14)
[2022-11-21] MEDS: ACETYLCYSTEINE 20% 200MG/ML 4 ML VIAL *FOR ORAL / INH USE ONLY NEB SCH ×4 (08:25→20:05)
[2022-11-21] MEDS: ALBUTEROL SO4 0.083% IH SOL 2.5 MG/3 ML VIAL.NEB. NEB SCH ×4 (08:25→20:05)
[2022-11-21] MEDS: ESCITALOPRAM OXALATE 10 MG TABLET PO SCH (09:26)
[2022-11-21] MEDS: SPIRONOLACTONE 25 MG TABLET PO SCH (09:26)
[2022-11-21] MEDS: FOLIC ACID 1 MG TABLET (FP) PO SCH (09:26)
[2022-11-21] MEDS: LACTULOSE 20 GM/30 ML UDC (FOR ORAL USE ONLY) GT SCH ×2 (09:26→21:14)
[2022-11-21] MEDS: POTASSIUM CHLORIDE ORAL LIQUID 20 MEQ/15 ML PO SCH ×2 (09:26→21:13)
[2022-11-21] MEDS: PANTOPRAZOLE SODIUM 40 MG VIAL IVPUSH SCH ×2 (09:26→21:14)
[2022-11-21] MEDS: ENOXAPARIN NA (PORCINE) 40 MG/0.4 ML DISP.SYRIN SQ SCH (09:26)
[2022-11-21] MEDS: ASPIRIN 81 MG CHEWABLE TABLETS PO SCH (09:26)
[2022-11-21] MEDS: BACITRACIN ZINC 15 GM TUBE TOPICAL OINTMENT TP SCH (09:27)
[2022-11-21] MEDS: CEFTRIAXONE 2 GM in DEXTROSE 5%-WATER 100 ML IVPB SCH (09:27)
[2022-11-21] MEDS: THIAMINE HCL 200 MG/2 ML VIAL IVPB SCH (09:28)
[2022-11-21] MEDS ORDERED: DEXAMETHASONE SOD PHOSPHATE 4 MG/1 ML VIAL IVPUSH SCH (10:00)
[2022-11-21] MEDS: CEFEPIME 1 GM in DEXTROSE 5%-WATER 100 ML IVPB SCH ×2 (12:17→21:14)
[2022-11-21] MEDS ORDERED: POTASSIUM CHLORIDE 20 MEQ in AMINO ACIDS 4.25%/D5W 1,000 ML IV SCH (15:30)
[2022-11-21] MEDS: CHLORHEXIDINE GLUCONATE 4% CLEANSER FOR DECOLONIZATION TP SCH (21:14)
[2022-11-22] MEDS: FENTANYL NS IVPB 500 MCG/100 ML BAG IVPB SCH ×3 (04:28→20:27)
[2022-11-22] MEDS: NOREPINEPHRINE 0.9 % NACL 8 MG/250 ML BAG IVPB SCH ×2 (04:29→14:11)
[2022-11-22] MEDS: PROPOFOL 1,000,000 MCG/100 ML VIAL IVPB SCH ×3 (05:11→20:27)
[2022-11-22 07:05] LABS: BASO % 0.9 % (0-2.0); EOS % 2.5 % (0-4.5); HEMATOCRIT 30.4 % (32.4-45.2); HEMOGLOBIN 9.9 GM/dL (10.7-15.3); LYMPH % 11.7 % (8-40); MCH 30.3 pg (25.7-33.7); MCHC 32.4 g/dl (32.0-36.0); MEAN CELL VOLUME 93.5 fl (80-96); MEAN PLT VOLUME 9.7 fl (7.5-11.1); MONO % 10.9 % (3.8-10.2); PLATELET COUNT 88 10^3/uL (134-434); RBC 3.25 M/mm3 (3.60-5.2); RDW 22.3 % (11.6-15.6); WHITE BLOOD COUNT 9.2 K/mm3 (4.0-10.0)
[2022-11-22 07:20] LABS: POTASSIUM 3.5 mmol/L (3.5-5.1)
[2022-11-22 07:22] LABS: ALBUMIN 1.7 g/dl (3.4-5.0); CALCIUM 7.6 mg/dL (8.5-10.1); MAGNESIUM 1.6 mg/dL (1.8-2.4)
[2022-11-22 07:23] LABS: BLOOD UREA NITROGEN 13.7 mg/dL (7-18)
[2022-11-22 07:25] LABS: CREATININE 0.4 mg/dL (0.55-1.3); PHOSPHOROUS 1.6 mg/dL (2.5-4.9)
[2022-11-22 07:27] LABS: BILIRUBIN,TOTAL 0.8 mg/dL (0.2-1)
[2022-11-22] MEDS: ALBUTEROL SO4 0.083% IH SOL 2.5 MG/3 ML VIAL.NEB. NEB SCH ×4 (08:20→20:57)
[2022-11-22] MEDS: ACETYLCYSTEINE 20% 200MG/ML 4 ML VIAL *FOR ORAL / INH USE ONLY NEB SCH ×4 (08:20→20:57)
[2022-11-22] MEDS ORDERED: NAPH,MB-DB/K PH,MBDB POWDER PACKET PO ONE (08:30)
[2022-11-22] MEDS ORDERED: MAGNESIUM OXIDE 400 MG TABLET (FP) PO ONE (08:30)
[2022-11-22 09:11] LABS: ANISOCYTOSIS 1+; MACROCYTOSIS 0
[2022-11-22] MEDS: AMINO ACIDS/PROTEIN HYDROLYS 30 ML LIQUID.PKT PO SCH (09:37)
[2022-11-22] MEDS: PANTOPRAZOLE SODIUM 40 MG VIAL IVPUSH SCH ×2 (09:38→21:13)
[2022-11-22] MEDS: ESCITALOPRAM OXALATE 10 MG TABLET PO SCH (09:38)
[2022-11-22] MEDS: FOLIC ACID 1 MG TABLET (FP) PO SCH (09:38)
[2022-11-22] MEDS: THIAMINE HCL 200 MG/2 ML VIAL IVPB SCH (09:38)
[2022-11-22] MEDS: ENOXAPARIN NA (PORCINE) 40 MG/0.4 ML DISP.SYRIN SQ SCH (09:38)
[2022-11-22] MEDS: LACTULOSE 20 GM/30 ML UDC (FOR ORAL USE ONLY) GT SCH ×2 (09:38→21:13)
[2022-11-22] MEDS: SPIRONOLACTONE 25 MG TABLET PO SCH (09:38)
[2022-11-22] MEDS: ASPIRIN 81 MG CHEWABLE TABLETS PO SCH (09:39)
[2022-11-22] MEDS: BACITRACIN ZINC 15 GM TUBE TOPICAL OINTMENT TP SCH (09:40)
[2022-11-22] MEDS: CEFEPIME 1 GM in DEXTROSE 5%-WATER 100 ML IVPB SCH ×5 (09:41→18:23)
[2022-11-22] MEDS ORDERED: DOPAMINE 400 MG/D5W - 400,000 MCG/250 ML INFUS.BAG IVPB SCH (10:30)
[2022-11-22] MEDS: KCL 10 MEQ IVPB 10 MEQ/100 ML INFUS.BAG IVPB SCH ×2 (14:11→16:27)
[2022-11-22] MEDS: MAGNESIUM 2GM/50ML STERILE WATER IVPB IVPB SCH ×2 (14:11→21:13)
[2022-11-22] MEDS: CHLORHEXIDINE GLUCONATE 4% CLEANSER FOR DECOLONIZATION TP SCH (21:13)
[2022-11-22] MEDS: METOCLOPRAMIDE HCL INJECTION 10 MG/2 ML VIAL IVPUSH PRN (23:16)
[2022-11-23] MEDS: CEFEPIME 1 GM in DEXTROSE 5%-WATER 100 ML IVPB SCH ×3 (01:11→17:03)
[2022-11-23 07:06] LABS: EOS % 2.8 % (0-4.5); HEMATOCRIT 30.3 % (32.4-45.2); HEMOGLOBIN 9.9 GM/dL (10.7-15.3); LYMPH % 11.3 % (8-40); MCH 30.4 pg (25.7-33.7); MCHC 32.7 g/dl (32.0-36.0); MEAN CELL VOLUME 92.9 fl (80-96); MEAN PLT VOLUME 10.1 fl (7.5-11.1); MONO % 9.8 % (3.8-10.2); NEUT % 75.1 % (42.8-82.8); PLATELET COUNT 97 10^3/uL (134-434); RBC 3.26 M/mm3 (3.60-5.2); RDW 22.5 % (11.6-15.6); WHITE BLOOD COUNT 8.3 K/mm3 (4.0-10.0)
[2022-11-23 07:17] LABS: POTASSIUM 4.1 mmol/L (3.5-5.1)
[2022-11-23 07:22] LABS: CALCIUM 7.7 mg/dL (8.5-10.1)
[2022-11-23 07:23] LABS: ALBUMIN 1.6 g/dl (3.4-5.0); BLOOD UREA NITROGEN 15.5 mg/dL (7-18); MAGNESIUM 2.5 mg/dL (1.8-2.4)
[2022-11-23 07:25] LABS: PHOSPHOROUS 1.9 mg/dL (2.5-4.9)
[2022-11-23 07:26] LABS: CREATININE 0.4 mg/dL (0.55-1.3)
[2022-11-23 07:27] LABS: BILIRUBIN,TOTAL 0.8 mg/dL (0.2-1); TOT PROT 5.1 g/dl (6.4-8.2)
[2022-11-23] MEDS: ALBUTEROL SO4 0.083% IH SOL 2.5 MG/3 ML VIAL.NEB. NEB SCH ×4 (08:30→20:18)
[2022-11-23] MEDS: ACETYLCYSTEINE 20% 200MG/ML 4 ML VIAL *FOR ORAL / INH USE ONLY NEB SCH ×3 (08:30→15:10)
[2022-11-23] MEDS: PANTOPRAZOLE SODIUM 40 MG VIAL IVPUSH SCH ×2 (09:07→21:25)
[2022-11-23] MEDS: LACTULOSE 20 GM/30 ML UDC (FOR ORAL USE ONLY) GT SCH ×2 (09:07→21:25)
[2022-11-23] MEDS: ESCITALOPRAM OXALATE 10 MG TABLET PO SCH (09:08)
[2022-11-23] MEDS: ASPIRIN 81 MG CHEWABLE TABLETS PO SCH (09:08)
[2022-11-23] MEDS: SPIRONOLACTONE 25 MG TABLET PO SCH (09:09)
[2022-11-23] MEDS: BACITRACIN ZINC 15 GM TUBE TOPICAL OINTMENT TP SCH (09:09)
[2022-11-23] MEDS: FOLIC ACID 1 MG TABLET (FP) PO SCH (09:09)
[2022-11-23] MEDS: ENOXAPARIN NA (PORCINE) 40 MG/0.4 ML DISP.SYRIN SQ SCH (09:10)
[2022-11-23] MEDS: THIAMINE HCL 200 MG/2 ML VIAL IVPB SCH (09:10)
[2022-11-23] MEDS: PROPOFOL 1,000,000 MCG/100 ML VIAL IVPB SCH ×2 (14:17→21:25)
[2022-11-23 15:38] LABS: ARTERIAL BLD GAS O2 SATURATION 98.2 % (95-98); ARTERIAL BLOOD GAS BASE EXCESS 4.6 mmol/L (-2-2); ARTERIAL BLOOD GAS PO2 105.6 mmHg (80-100); ARTERIAL BLOOD GAS pH 7.478 (7.350-7.450)
[2022-11-23 15:40] LABS: ALLENS TEST POSITIVE
[2022-11-23 15:41] LABS: VENT RATE 14
[2022-11-23 16:00] LABS: ARTERIAL BLD GAS O2 SATURATION 98.2 % (95-98); ARTERIAL BLOOD GAS BASE EXCESS 2.7 mmol/L (-2-2); ARTERIAL BLOOD GAS pH 7.466 (7.350-7.450)
[2022-11-23 16:03] LABS: ALLENS TEST POSITIVE
[2022-11-23 16:04] LABS: VENT MODE A/C; VENT RATE 14
[2022-11-23] MEDS ORDERED: AMINO ACIDS 4.25%/D5W 1,000 ML IV SCH (16:30)
[2022-11-23] MEDS: DEXTROSE 5%-LACTATED RINGERS 1,000 ML IV SCH (17:03)
[2022-11-23] MEDS: NOREPINEPHRINE 0.9 % NACL 8 MG/250 ML BAG IVPB SCH (17:04)
[2022-11-23] MEDS: FENTANYL NS IVPB 500 MCG/100 ML BAG IVPB SCH (17:05)
[2022-11-23] MEDS: CHLORHEXIDINE GLUCONATE 4% CLEANSER FOR DECOLONIZATION TP SCH (21:26)
[2022-11-24] MEDS: CEFEPIME 1 GM in DEXTROSE 5%-WATER 100 ML IVPB SCH ×3 (01:04→17:32)
[2022-11-24] MEDS: ACETYLCYSTEINE 20% 200MG/ML 4 ML VIAL *FOR ORAL / INH USE ONLY NEB SCH ×5 (06:06→20:45)
[2022-11-24 06:30] LABS: BASO % 1.1 % (0-2.0); EOS % 4.3 % (0-4.5); HEMATOCRIT 28.5 % (32.4-45.2); HEMOGLOBIN 9.1 GM/dL (10.7-15.3); LYMPH % 13.7 % (8-40); MCH 30.2 pg (25.7-33.7); MEAN CELL VOLUME 94.3 fl (80-96); MEAN PLT VOLUME 9.8 fl (7.5-11.1); NEUT % 67.9 % (42.8-82.8); PLATELET COUNT 83 10^3/uL (134-434); RBC 3.02 M/mm3 (3.60-5.2); RDW 21.9 % (11.6-15.6); WHITE BLOOD COUNT 5.7 K/mm3 (4.0-10.0)
[2022-11-24 06:41] LABS: POTASSIUM 4.2 mmol/L (3.5-5.1)
[2022-11-24 06:47] LABS: CALCIUM 7.5 mg/dL (8.5-10.1)
[2022-11-24 06:48] LABS: ALBUMIN 1.6 g/dl (3.4-5.0); BLOOD UREA NITROGEN 16.3 mg/dL (7-18); MAGNESIUM 2.2 mg/dL (1.8-2.4)
[2022-11-24 06:51] LABS: CREATININE 0.4 mg/dL (0.55-1.3)
[2022-11-24 06:52] LABS: BILIRUBIN,TOTAL 0.9 mg/dL (0.2-1)
[2022-11-24 06:53] LABS: TOT PROT 5.1 g/dl (6.4-8.2)
[2022-11-24] MEDS: ALBUTEROL SO4 0.083% IH SOL 2.5 MG/3 ML VIAL.NEB. NEB SCH ×4 (08:00→20:45)
[2022-11-24] MEDS: PANTOPRAZOLE SODIUM 40 MG VIAL IVPUSH SCH ×2 (09:50→21:17)
[2022-11-24] MEDS: ESCITALOPRAM OXALATE 10 MG TABLET PO SCH (09:50)
[2022-11-24] MEDS: ASPIRIN 81 MG CHEWABLE TABLETS PO SCH (09:50)
[2022-11-24] MEDS: LACTULOSE 20 GM/30 ML UDC (FOR ORAL USE ONLY) GT SCH ×2 (09:50→21:16)
[2022-11-24] MEDS: ENOXAPARIN NA (PORCINE) 40 MG/0.4 ML DISP.SYRIN SQ SCH (09:50)
[2022-11-24] MEDS: SPIRONOLACTONE 25 MG TABLET PO SCH (09:50)
[2022-11-24] MEDS: THIAMINE HCL 200 MG/2 ML VIAL IVPB SCH (09:50)
[2022-11-24] MEDS: FOLIC ACID 1 MG TABLET (FP) PO SCH (09:50)
[2022-11-24] MEDS: BACITRACIN ZINC 15 GM TUBE TOPICAL OINTMENT TP SCH (09:51)
[2022-11-24] MEDS: FENTANYL NS IVPB 500 MCG/100 ML BAG IVPB SCH ×2 (11:38→17:33)
[2022-11-24] MEDS: NAPH,MB-DB/K PH,MBDB POWDER PACKET PO SCH ×2 (11:38→21:16)
[2022-11-24] MEDS: PROPOFOL 1,000,000 MCG/100 ML VIAL IVPB SCH ×2 (16:00→21:44)
[2022-11-24] MEDS: DEXTROSE 5%-LACTATED RINGERS 1,000 ML IV SCH (17:33)
[2022-11-24] MEDS: NOREPINEPHRINE 0.9 % NACL 8 MG/250 ML BAG IVPB SCH (17:33)
[2022-11-24] MEDS: METOCLOPRAMIDE HCL INJECTION 10 MG/2 ML VIAL IVPUSH PRN (17:41)
[2022-11-24] MEDS: CHLORHEXIDINE GLUCONATE 4% CLEANSER FOR DECOLONIZATION TP SCH (21:17)
[2022-11-25] MEDS: CEFEPIME 1 GM in DEXTROSE 5%-WATER 100 ML IVPB SCH ×3 (01:07→17:15)
[2022-11-25] MEDS: METOCLOPRAMIDE HCL INJECTION 10 MG/2 ML VIAL IVPUSH PRN ×2 (06:00→17:22)
[2022-11-25 06:56] LABS: HEMATOCRIT 32.6 % (32.4-45.2); HEMOGLOBIN 10.4 GM/dL (10.7-15.3); MCH 30.1 pg (25.7-33.7); MEAN CELL VOLUME 94.1 fl (80-96); MEAN PLT VOLUME 9.7 fl (7.5-11.1); PLATELET COUNT 86 10^3/uL (134-434); RBC 3.46 M/mm3 (3.60-5.2); RDW 21.4 % (11.6-15.6); WHITE BLOOD COUNT 6.5 K/mm3 (4.0-10.0)
[2022-11-25 07:12] LABS: ARTERIAL BLD GAS O2 SATURATION 97.1 % (95-98); ARTERIAL BLOOD GAS BASE EXCESS -0.7 mmol/L (-2-2)
[2022-11-25 07:15] LABS: ALLENS TEST POSITIVE; VENT MODE A/C; VENT RATE 14
[2022-11-25 07:15] LABS: POTASSIUM 3.9 mmol/L (3.5-5.1)
[2022-11-25 07:18] LABS: CALCIUM 7.6 mg/dL (8.5-10.1)
[2022-11-25 07:19] LABS: ALBUMIN 1.7 g/dl (3.4-5.0); BLOOD UREA NITROGEN 15.2 mg/dL (7-18)
[2022-11-25 07:20] LABS: MAGNESIUM 1.9 mg/dL (1.8-2.4)
[2022-11-25 07:22] LABS: CREATININE 0.4 mg/dL (0.55-1.3)
[2022-11-25 07:23] LABS: TOT PROT 5.3 g/dl (6.4-8.2)
[2022-11-25] MEDS: ALBUTEROL SO4 0.083% IH SOL 2.5 MG/3 ML VIAL.NEB. NEB SCH (08:10)
[2022-11-25] MEDS: ACETYLCYSTEINE 20% 200MG/ML 4 ML VIAL *FOR ORAL / INH USE ONLY NEB SCH (08:10)
[2022-11-25] MEDS: BACITRACIN ZINC 15 GM TUBE TOPICAL OINTMENT TP SCH (09:42)
[2022-11-25] MEDS: NOREPINEPHRINE 0.9 % NACL 8 MG/250 ML BAG IVPB SCH ×2 (09:42→16:57)
[2022-11-25] MEDS: NAPH,MB-DB/K PH,MBDB POWDER PACKET PO SCH ×2 (09:43→21:20)
[2022-11-25] MEDS: PROPOFOL 1,000,000 MCG/100 ML VIAL IVPB SCH ×2 (09:43→21:20)
[2022-11-25] MEDS: AMINO ACIDS/PROTEIN HYDROLYS 30 ML LIQUID.PKT PO SCH (09:43)
[2022-11-25] MEDS: THIAMINE HCL 200 MG/2 ML VIAL IVPB SCH (09:43)
[2022-11-25] MEDS: PANTOPRAZOLE SODIUM 40 MG VIAL IVPUSH SCH ×2 (09:43→21:20)
[2022-11-25] MEDS: LACTULOSE 20 GM/30 ML UDC (FOR ORAL USE ONLY) GT SCH ×2 (09:43→21:20)
[2022-11-25] MEDS: SPIRONOLACTONE 25 MG TABLET PO SCH (09:44)
[2022-11-25] MEDS: ASPIRIN 81 MG CHEWABLE TABLETS PO SCH (09:44)
[2022-11-25] MEDS: ESCITALOPRAM OXALATE 10 MG TABLET PO SCH (09:44)
[2022-11-25] MEDS: FOLIC ACID 1 MG TABLET (FP) PO SCH (09:44)
[2022-11-25] MEDS: ENOXAPARIN NA (PORCINE) 40 MG/0.4 ML DISP.SYRIN SQ SCH (09:44)
[2022-11-25] MEDS ORDERED: DEXAMETHASONE SOD PHOSPHATE 4 MG/1 ML VIAL IVPUSH SCH (10:00)
[2022-11-25] MEDS: DEXTROSE 5%-LACTATED RINGERS 1,000 ML IV SCH (17:54)
[2022-11-25] MEDS: CHLORHEXIDINE GLUCONATE 4% CLEANSER FOR DECOLONIZATION TP SCH (21:20)
[2022-11-26] MEDS: CEFEPIME 1 GM in DEXTROSE 5%-WATER 100 ML IVPB SCH ×3 (01:06→17:14)
[2022-11-26] MEDS: NOREPINEPHRINE 0.9 % NACL 8 MG/250 ML BAG IVPB SCH ×3 (05:41→21:16)
[2022-11-26 07:27] LABS: HEMATOCRIT 31.2 % (32.4-45.2); MCHC 32.1 g/dl (32.0-36.0); MEAN CELL VOLUME 93.3 fl (80-96); MEAN PLT VOLUME 9.9 fl (7.5-11.1); PLATELET COUNT 123 10^3/uL (134-434); RBC 3.35 M/mm3 (3.60-5.2); RDW 21.4 % (11.6-15.6)
[2022-11-26 07:59] LABS: CALCIUM 7.7 mg/dL (8.5-10.1)
[2022-11-26 08:00] LABS: BLOOD UREA NITROGEN 15.6 mg/dL (7-18); MAGNESIUM 1.9 mg/dL (1.8-2.4)
[2022-11-26 08:03] LABS: CREATININE 0.4 mg/dL (0.55-1.3)
[2022-11-26] MEDS: SPIRONOLACTONE 25 MG TABLET PO SCH (09:55)
[2022-11-26] MEDS: FOLIC ACID 1 MG TABLET (FP) PO SCH (09:55)
[2022-11-26] MEDS: LACTULOSE 20 GM/30 ML UDC (FOR ORAL USE ONLY) GT SCH ×2 (09:55→21:15)
[2022-11-26] MEDS: ASPIRIN 81 MG CHEWABLE TABLETS PO SCH (09:55)
[2022-11-26] MEDS: ENOXAPARIN NA (PORCINE) 40 MG/0.4 ML DISP.SYRIN SQ SCH (09:55)
[2022-11-26] MEDS: THIAMINE HCL 200 MG/2 ML VIAL IVPB SCH (09:56)
[2022-11-26] MEDS: BACITRACIN ZINC 15 GM TUBE TOPICAL OINTMENT TP SCH (09:56)
[2022-11-26] MEDS: AMINO ACIDS/PROTEIN HYDROLYS 30 ML LIQUID.PKT PO SCH (09:56)
[2022-11-26] MEDS: PANTOPRAZOLE SODIUM 40 MG VIAL IVPUSH SCH ×2 (09:56→21:15)
[2022-11-26] MEDS: ESCITALOPRAM OXALATE 10 MG TABLET PO SCH (10:02)
[2022-11-26] MEDS ORDERED: ALBUMIN HUMAN 25% 12.5 GM/50 ML VIAL IV ONE (17:00)
[2022-11-26] MEDS: PROPOFOL 1,000,000 MCG/100 ML VIAL IVPB SCH (21:15)
[2022-11-26] MEDS: CHLORHEXIDINE GLUCONATE 4% CLEANSER FOR DECOLONIZATION TP SCH (21:16)
[2022-11-27] MEDS: CEFEPIME 1 GM in DEXTROSE 5%-WATER 100 ML IVPB SCH ×3 (02:37→17:06)
[2022-11-27 07:58] LABS: BASO % 1.1 % (0-2.0); EOS % 4.8 % (0-4.5); HEMATOCRIT 27.8 % (32.4-45.2); MCH 30.4 pg (25.7-33.7); MCHC 32.5 g/dl (32.0-36.0); MEAN CELL VOLUME 93.5 fl (80-96); MEAN PLT VOLUME 10.1 fl (7.5-11.1); MONO % 12.8 % (3.8-10.2); NEUT % 67.3 % (42.8-82.8); PLATELET COUNT 117 10^3/uL (134-434); POTASSIUM 3.5 mmol/L (3.5-5.1); RBC 2.97 M/mm3 (3.60-5.2); RDW 20.8 % (11.6-15.6); WHITE BLOOD COUNT 6.3 K/mm3 (4.0-10.0)
[2022-11-27 07:59] LABS: CALCIUM 7.6 mg/dL (8.5-10.1)
[2022-11-27 08:01] LABS: ALBUMIN 1.9 g/dl (3.4-5.0); BLOOD UREA NITROGEN 23.2 mg/dL (7-18); MAGNESIUM 1.8 mg/dL (1.8-2.4)
[2022-11-27 08:03] LABS: INR 1.17 (0.83-1.09); PROTHROMBIN TIME (PATIENT) 13.6 SEC (9.7-13.0)
[2022-11-27 08:04] LABS: CREATININE 0.4 mg/dL (0.55-1.3); PHOSPHOROUS 1.8 mg/dL (2.5-4.9)
[2022-11-27 08:05] LABS: BILIRUBIN,TOTAL 0.8 mg/dL (0.2-1)
[2022-11-27 08:49] LABS: ANISOCYTOSIS 1+; MACROCYTOSIS 1+
[2022-11-27] MEDS ORDERED: NAPH,MB-DB/K PH,MBDB POWDER PACKET PO ONE (08:56)
[2022-11-27] MEDS: PANTOPRAZOLE SODIUM 40 MG VIAL IVPUSH SCH ×2 (09:17→21:12)
[2022-11-27] MEDS: SPIRONOLACTONE 25 MG TABLET PO SCH (09:18)
[2022-11-27] MEDS: FOLIC ACID 1 MG TABLET (FP) PO SCH (09:18)
[2022-11-27] MEDS: THIAMINE HCL 200 MG/2 ML VIAL IVPB SCH (09:18)
[2022-11-27] MEDS: ESCITALOPRAM OXALATE 10 MG TABLET PO SCH (09:18)
[2022-11-27] MEDS: ENOXAPARIN NA (PORCINE) 40 MG/0.4 ML DISP.SYRIN SQ SCH (09:18)
[2022-11-27] MEDS: AMINO ACIDS/PROTEIN HYDROLYS 30 ML LIQUID.PKT PO SCH (09:18)
[2022-11-27] MEDS: LACTULOSE 20 GM/30 ML UDC (FOR ORAL USE ONLY) GT SCH ×2 (09:19→21:12)
[2022-11-27] MEDS: BACITRACIN ZINC 15 GM TUBE TOPICAL OINTMENT TP SCH (09:19)
[2022-11-27] MEDS ORDERED: ALBUMIN HUMAN 25% 100 ML VIAL IV ONE (12:15)
[2022-11-27] MEDS: LACTATED RINGERS SOLUTION 1,000 ML/1,000 ML INFUS.BAG IV SCH (12:43)
[2022-11-27] MEDS ORDERED: MAGNESIUM SULFATE IN WATER 2 GM/50 ML IVPB IVPB ONE (15:00)
[2022-11-27] MEDS: NOREPINEPHRINE 0.9 % NACL 8 MG/250 ML BAG IVPB SCH (15:21)
[2022-11-27] MEDS: PROPOFOL 1,000,000 MCG/100 ML VIAL IVPB SCH ×2 (17:06→21:12)
[2022-11-27] MEDS: CHLORHEXIDINE GLUCONATE 4% CLEANSER FOR DECOLONIZATION TP SCH (21:12)
[2022-11-28] MEDS: CEFEPIME 1 GM in DEXTROSE 5%-WATER 100 ML IVPB SCH ×3 (01:02→17:29)
[2022-11-28] MEDS: LACTATED RINGERS SOLUTION 1,000 ML/1,000 ML INFUS.BAG IV SCH ×2 (01:08→14:57)
[2022-11-28 07:48] LABS: BASO % 0.9 % (0-2.0); EOS % 5.4 % (0-4.5); HEMATOCRIT 26.8 % (32.4-45.2); HEMOGLOBIN 8.5 GM/dL (10.7-15.3); LYMPH % 13.6 % (8-40); MCH 29.4 pg (25.7-33.7); MCHC 31.8 g/dl (32.0-36.0); MEAN CELL VOLUME 92.2 fl (80-96); MEAN PLT VOLUME 9.5 fl (7.5-11.1); NEUT % 64.1 % (42.8-82.8); PLATELET COUNT 116 10^3/uL (134-434); RDW 21.3 % (11.6-15.6); WHITE BLOOD COUNT 5.5 K/mm3 (4.0-10.0)
[2022-11-28 08:13] LABS: POTASSIUM 3.7 mmol/L (3.5-5.1)
[2022-11-28 08:14] LABS: CALCIUM 7.7 mg/dL (8.5-10.1)
[2022-11-28 08:15] LABS: ALBUMIN 1.9 g/dl (3.4-5.0); BLOOD UREA NITROGEN 26.1 mg/dL (7-18); MAGNESIUM 2.2 mg/dL (1.8-2.4)
[2022-11-28 08:18] LABS: CREATININE 0.3 mg/dL (0.55-1.3)
[2022-11-28 08:19] LABS: BILIRUBIN,TOTAL 0.8 mg/dL (0.2-1); TOT PROT 5.1 g/dl (6.4-8.2)
[2022-11-28 08:21] LABS: PHOSPHOROUS 1.9 mg/dL (2.5-4.9)
[2022-11-28] MEDS: ENOXAPARIN NA (PORCINE) 40 MG/0.4 ML DISP.SYRIN SQ SCH (09:43)
[2022-11-28] MEDS: SPIRONOLACTONE 25 MG TABLET PO SCH (09:44)
[2022-11-28] MEDS: ESCITALOPRAM OXALATE 10 MG TABLET PO SCH (09:44)
[2022-11-28] MEDS: THIAMINE HCL 200 MG/2 ML VIAL IVPB SCH (09:44)
[2022-11-28] MEDS: PROPOFOL 1,000,000 MCG/100 ML VIAL IVPB SCH ×2 (09:44→20:01)
[2022-11-28] MEDS: FOLIC ACID 1 MG TABLET (FP) PO SCH (09:44)
[2022-11-28] MEDS: PANTOPRAZOLE SODIUM 40 MG VIAL IVPUSH SCH ×2 (09:44→21:04)
[2022-11-28] MEDS: AMINO ACIDS/PROTEIN HYDROLYS 30 ML LIQUID.PKT PO SCH (09:45)
[2022-11-28] MEDS: BACITRACIN ZINC 15 GM TUBE TOPICAL OINTMENT TP SCH (09:57)
[2022-11-28] MEDS: NOREPINEPHRINE 0.9 % NACL 8 MG/250 ML BAG IVPB SCH (13:01)
[2022-11-28] MEDS ORDERED: ALBUMIN HUMAN 25% 100 ML VIAL IV ONE (14:00)
[2022-11-28] MEDS: NAPH,MB-DB/K PH,MBDB POWDER PACKET PO SCH ×2 (14:33→21:04)
[2022-11-28] MEDS: LACTULOSE 20 GM/30 ML UDC (FOR ORAL USE ONLY) GT SCH ×2 (14:56→21:04)
[2022-11-28] MEDS: CHLORHEXIDINE GLUCONATE 4% CLEANSER FOR DECOLONIZATION TP SCH (21:04)
[2022-11-29] MEDS: LACTATED RINGERS SOLUTION 1,000 ML/1,000 ML INFUS.BAG IV SCH ×2 (02:36→16:40)
[2022-11-29] MEDS: CEFEPIME 1 GM in DEXTROSE 5%-WATER 100 ML IVPB SCH ×3 (02:37→17:33)
[2022-11-29] MEDS ORDERED: MIDAZOLAM HCL 5 MG/1 ML Single Dose Vial IVPUSH ONE ×2 (08:00→09:30)
[2022-11-29] MEDS ORDERED: ROCURONIUM BROMIDE 50 MG/5 ML VIAL IVPUSH ONE ×2 (08:00→09:30)
[2022-11-29 08:05] LABS: HEMATOCRIT 27.5 % (32.4-45.2); MCH 30.6 pg (25.7-33.7); MCHC 32.7 g/dl (32.0-36.0); MEAN CELL VOLUME 93.4 fl (80-96); MEAN PLT VOLUME 10.3 fl (7.5-11.1); PLATELET COUNT 143 10^3/uL (134-434); RBC 2.94 M/mm3 (3.60-5.2); RDW 20.1 % (11.6-15.6); WHITE BLOOD COUNT 5.8 K/mm3 (4.0-10.0)
[2022-11-29 08:08] LABS: INR 1.12 (0.83-1.09)
[2022-11-29 08:11] LABS: ACTIVATED PTT 35.3 SECONDS (25.2-36.5)
[2022-11-29 08:19] LABS: POTASSIUM 4.3 mmol/L (3.5-5.1)
[2022-11-29 08:23] LABS: BLOOD UREA NITROGEN 28.6 mg/dL (7-18)
[2022-11-29 08:27] LABS: CREATININE 0.3 mg/dL (0.55-1.3)
[2022-11-29] MEDS: SPIRONOLACTONE 25 MG TABLET PO SCH (09:28)
[2022-11-29] MEDS: NAPH,MB-DB/K PH,MBDB POWDER PACKET PO SCH (09:28)
[2022-11-29] MEDS: FOLIC ACID 1 MG TABLET (FP) PO SCH (09:28)
[2022-11-29] MEDS: ESCITALOPRAM OXALATE 10 MG TABLET PO SCH (09:28)
[2022-11-29] MEDS: PANTOPRAZOLE SODIUM 40 MG VIAL IVPUSH SCH ×2 (09:28→21:12)
[2022-11-29] MEDS: THIAMINE HCL 200 MG/2 ML VIAL IVPB SCH (09:29)
[2022-11-29] MEDS: LACTULOSE 20 GM/30 ML UDC (FOR ORAL USE ONLY) GT SCH ×2 (09:29→21:12)
[2022-11-29] MEDS: BACITRACIN ZINC 15 GM TUBE TOPICAL OINTMENT TP SCH (09:29)
[2022-11-29] MEDS: PROPOFOL 1,000,000 MCG/100 ML VIAL IVPB SCH ×2 (09:45→19:51)
[2022-11-29] MEDS ORDERED: MIDAZOLAM HCL 5 MG/1 ML Single Dose Vial ONE (12:38)
[2022-11-29] MEDS: AMINO ACIDS/PROTEIN HYDROLYS 30 ML LIQUID.PKT PO SCH (13:07)
[2022-11-29] MEDS: NOREPINEPHRINE 0.9 % NACL 8 MG/250 ML BAG IVPB SCH (16:41)
[2022-11-29] MEDS: COLLAGENASE CLOSTRIDIUM HIST. 30 GRAMS TUBE TP SCH (19:51)
[2022-11-29] MEDS: CHLORHEXIDINE GLUCONATE 4% CLEANSER FOR DECOLONIZATION TP SCH (21:12)
[2022-11-30] MEDS: CEFEPIME 1 GM in DEXTROSE 5%-WATER 100 ML IVPB SCH ×3 (01:01→18:16)
[2022-11-30 07:14] LABS: BASO % 0.7 % (0-2.0); EOS % 4.7 % (0-4.5); HEMATOCRIT 27.6 % (32.4-45.2); LYMPH % 12.5 % (8-40); MCH 30.5 pg (25.7-33.7); MCHC 32.5 g/dl (32.0-36.0); MEAN CELL VOLUME 93.9 fl (80-96); MEAN PLT VOLUME 10.2 fl (7.5-11.1); MONO % 14.8 % (3.8-10.2); NEUT % 67.3 % (42.8-82.8); PLATELET COUNT 187 10^3/uL (134-434); RBC 2.94 M/mm3 (3.60-5.2); WHITE BLOOD COUNT 5.3 K/mm3 (4.0-10.0)
[2022-11-30 07:17] LABS: POTASSIUM 4.4 mmol/L (3.5-5.1)
[2022-11-30 07:21] LABS: BLOOD UREA NITROGEN 30.6 mg/dL (7-18); CALCIUM 7.9 mg/dL (8.5-10.1); MAGNESIUM 1.8 mg/dL (1.8-2.4)
[2022-11-30 07:23] LABS: ALBUMIN 1.9 g/dl (3.4-5.0)
[2022-11-30 07:24] LABS: CREATININE 0.4 mg/dL (0.55-1.3); PHOSPHOROUS 2.8 mg/dL (2.5-4.9)
[2022-11-30 07:26] LABS: BILIRUBIN,TOTAL 0.8 mg/dL (0.2-1); TOT PROT 4.8 g/dl (6.4-8.2)
[2022-11-30] MEDS: PANTOPRAZOLE SODIUM 40 MG VIAL IVPUSH SCH ×2 (09:39→21:35)
[2022-11-30] MEDS: ENOXAPARIN NA (PORCINE) 40 MG/0.4 ML DISP.SYRIN SQ SCH (09:41)
[2022-11-30] MEDS: FOLIC ACID 1 MG TABLET (FP) PO SCH (09:41)
[2022-11-30] MEDS: SPIRONOLACTONE 25 MG TABLET PO SCH (09:41)
[2022-11-30] MEDS: AMINO ACIDS/PROTEIN HYDROLYS 30 ML LIQUID.PKT PO SCH (09:41)
[2022-11-30] MEDS: ESCITALOPRAM OXALATE 10 MG TABLET PO SCH (09:42)
[2022-11-30] MEDS: LACTULOSE 20 GM/30 ML UDC (FOR ORAL USE ONLY) GT SCH (09:42)
[2022-11-30] MEDS: COLLAGENASE CLOSTRIDIUM HIST. 30 GRAMS TUBE TP SCH (09:42)
[2022-11-30] MEDS: THIAMINE HCL 200 MG/2 ML VIAL IVPB SCH (09:42)
[2022-11-30] MEDS: BACITRACIN ZINC 15 GM TUBE TOPICAL OINTMENT TP SCH (09:45)
[2022-11-30] MEDS ORDERED: ALPRAZolam 0.25 MG TABLET PO PRN (11:55)
[2022-11-30] MEDS ORDERED: ALBUMIN HUMAN 25% 100 ML VIAL IV ONE (12:00)
[2022-11-30] MEDS: NOREPINEPHRINE 0.9 % NACL 8 MG/250 ML BAG IVPB SCH (16:55)
[2022-11-30] MEDS: CHLORHEXIDINE GLUCONATE 4% CLEANSER FOR DECOLONIZATION TP SCH (21:35)
[2022-12-01] MEDS: CEFEPIME 1 GM in DEXTROSE 5%-WATER 100 ML IVPB SCH ×3 (01:30→17:06)
[2022-12-01 07:07] LABS: BASO % 0.6 % (0-2.0); EOS % 4.8 % (0-4.5); HEMATOCRIT 25.1 % (32.4-45.2); LYMPH % 11.6 % (8-40); MCH 30.2 pg (25.7-33.7); MEAN CELL VOLUME 94.2 fl (80-96); MEAN PLT VOLUME 9.9 fl (7.5-11.1); MONO % 16.7 % (3.8-10.2); NEUT % 66.3 % (42.8-82.8); PLATELET COUNT 156 10^3/uL (134-434); RBC 2.66 M/mm3 (3.60-5.2); RDW 19.2 % (11.6-15.6); WHITE BLOOD COUNT 4.5 K/mm3 (4.0-10.0)
[2022-12-01 07:25] LABS: POTASSIUM 4.3 mmol/L (3.5-5.1)
[2022-12-01 07:37] LABS: MAGNESIUM 1.8 mg/dL (1.8-2.4)
[2022-12-01 07:38] LABS: BLOOD UREA NITROGEN 35.1 mg/dL (7-18)
[2022-12-01 07:40] LABS: CREATININE 0.4 mg/dL (0.55-1.3); PHOSPHOROUS 2.3 mg/dL (2.5-4.9)
[2022-12-01 07:42] LABS: BILIRUBIN,TOTAL 0.8 mg/dL (0.2-1); TOT PROT 4.9 g/dl (6.4-8.2)
[2022-12-01] MEDS: ENOXAPARIN NA (PORCINE) 40 MG/0.4 ML DISP.SYRIN SQ SCH (09:26)
[2022-12-01] MEDS: PANTOPRAZOLE SODIUM 40 MG VIAL IVPUSH SCH ×2 (09:26→21:00)
[2022-12-01] MEDS: ASCORBIC ACID 500 MG TABLET (FP) PO SCH (09:27)
[2022-12-01] MEDS: AMINO ACIDS/PROTEIN HYDROLYS 30 ML LIQUID.PKT PO SCH (09:27)
[2022-12-01] MEDS: FOLIC ACID 1 MG TABLET (FP) PO SCH (09:27)
[2022-12-01] MEDS: ZINC SULFATE 220 MG CAPSULE (FP) PO SCH (09:27)
[2022-12-01] MEDS: ESCITALOPRAM OXALATE 10 MG TABLET PO SCH (09:27)
[2022-12-01] MEDS: SPIRONOLACTONE 25 MG TABLET PO SCH (09:27)
[2022-12-01] MEDS: THIAMINE HCL 200 MG/2 ML VIAL IVPB SCH (09:27)
[2022-12-01] MEDS: BACITRACIN ZINC 15 GM TUBE TOPICAL OINTMENT TP SCH (09:28)
[2022-12-01] MEDS: COLLAGENASE CLOSTRIDIUM HIST. 30 GRAMS TUBE TP SCH (10:55)
[2022-12-01] MEDS ORDERED: ALBUMIN HUMAN 25% 12.5 GM/50 ML VIAL IV ONE (19:00)
[2022-12-01] MEDS: CHLORHEXIDINE GLUCONATE 4% CLEANSER FOR DECOLONIZATION TP SCH (21:00)
[2022-12-02] MEDS: CEFEPIME 1 GM in DEXTROSE 5%-WATER 100 ML IVPB SCH ×3 (03:33→17:47)
[2022-12-02 07:43] LABS: BASO % 0.6 % (0-2.0); EOS % 4.7 % (0-4.5); HEMATOCRIT 23.6 % (32.4-45.2); HEMOGLOBIN 7.6 GM/dL (10.7-15.3); LYMPH % 13.8 % (8-40); MEAN CELL VOLUME 93.6 fl (80-96); MEAN PLT VOLUME 10.2 fl (7.5-11.1); MONO % 19.8 % (3.8-10.2); NEUT % 61.1 % (42.8-82.8); PLATELET COUNT 180 10^3/uL (134-434); RBC 2.52 M/mm3 (3.60-5.2); RDW 19.7 % (11.6-15.6); WHITE BLOOD COUNT 4.3 K/mm3 (4.0-10.0)
[2022-12-02 07:52] LABS: POTASSIUM 4.8 mmol/L (3.5-5.1)
[2022-12-02 07:55] LABS: BLOOD UREA NITROGEN 41.7 mg/dL (7-18); CALCIUM 8.3 mg/dL (8.5-10.1); MAGNESIUM 1.9 mg/dL (1.8-2.4)
[2022-12-02 07:56] LABS: ALBUMIN 2.1 g/dl (3.4-5.0)
[2022-12-02 07:58] LABS: PHOSPHOROUS 2.4 mg/dL (2.5-4.9)
[2022-12-02 07:59] LABS: CREATININE 0.4 mg/dL (0.55-1.3)
[2022-12-02 08:00] LABS: BILIRUBIN,TOTAL 0.7 mg/dL (0.2-1)
[2022-12-02] MEDS: SPIRONOLACTONE 25 MG TABLET PO SCH (09:23)
[2022-12-02] MEDS: AMINO ACIDS/PROTEIN HYDROLYS 30 ML LIQUID.PKT PO SCH (09:24)
[2022-12-02] MEDS: MIDODRINE HCL 5 MG TABLET PO SCH ×3 (09:25→17:50)
[2022-12-02] MEDS: ENOXAPARIN NA (PORCINE) 40 MG/0.4 ML DISP.SYRIN SQ SCH (09:25)
[2022-12-02] MEDS: THIAMINE HCL 200 MG/2 ML VIAL IVPB SCH (09:26)
[2022-12-02] MEDS: ZINC SULFATE 220 MG CAPSULE (FP) PO SCH (09:26)
[2022-12-02] MEDS: FOLIC ACID 1 MG TABLET (FP) PO SCH (09:26)
[2022-12-02] MEDS: ASCORBIC ACID 500 MG TABLET (FP) PO SCH (09:26)
[2022-12-02] MEDS: PANTOPRAZOLE SODIUM 40 MG VIAL IVPUSH SCH ×2 (09:26→21:06)
[2022-12-02] MEDS: ESCITALOPRAM OXALATE 10 MG TABLET PO SCH (09:27)
[2022-12-02] MEDS: BACITRACIN ZINC 15 GM TUBE TOPICAL OINTMENT TP SCH (11:49)
[2022-12-02] MEDS: COLLAGENASE CLOSTRIDIUM HIST. 30 GRAMS TUBE TP SCH (12:49)
[2022-12-02] MEDS ORDERED: MIDODRINE HCL 5 MG TABLET PO SCH (18:34)
[2022-12-02] MEDS: CHLORHEXIDINE GLUCONATE 4% CLEANSER FOR DECOLONIZATION TP SCH (21:06)
[2022-12-03] MEDS ORDERED: CEFEPIME HCL 1 GM VIAL (RESTRICTED TO ID) ONE (00:32)
[2022-12-03] MEDS: CEFEPIME 1 GM in DEXTROSE 5%-WATER 100 ML IVPB SCH ×3 (01:01→17:04)
[2022-12-03] MEDS: MIDODRINE HCL 5 MG TABLET PO SCH ×3 (01:01→17:08)
[2022-12-03] MEDS ORDERED: SODIUM CHLORIDE 250 ML IV STA (04:16)
[2022-12-03 06:55] LABS: HEMATOCRIT 26.9 % (32.4-45.2); HEMOGLOBIN 8.6 GM/dL (10.7-15.3); MCH 30.1 pg (25.7-33.7); MCHC 31.9 g/dl (32.0-36.0); MEAN CELL VOLUME 94.2 fl (80-96); PLATELET COUNT 234 10^3/uL (134-434); RBC 2.85 M/mm3 (3.60-5.2); RDW 19.5 % (11.6-15.6); WHITE BLOOD COUNT 6.2 K/mm3 (4.0-10.0)
[2022-12-03 07:03] LABS: INR 1.16 (0.83-1.09); PROTHROMBIN TIME (PATIENT) 13.4 SEC (9.7-13.0)
[2022-12-03 07:13] LABS: POTASSIUM 5.1 mmol/L (3.5-5.1)
[2022-12-03 07:15] LABS: CALCIUM 8.4 mg/dL (8.5-10.1)
[2022-12-03 07:16] LABS: ALBUMIN 2.2 g/dl (3.4-5.0); BLOOD UREA NITROGEN 51.9 mg/dL (7-18); MAGNESIUM 1.9 mg/dL (1.8-2.4)
[2022-12-03 07:18] LABS: BILIRUBIN,DIRECT 0.3 mg/dL (0.0-0.2); PHOSPHOROUS 2.3 mg/dL (2.5-4.9)
[2022-12-03 07:19] LABS: CREATININE 0.5 mg/dL (0.55-1.3)
[2022-12-03 07:20] LABS: BILIRUBIN,TOTAL 0.6 mg/dL (0.2-1); TOT PROT 5.4 g/dl (6.4-8.2)
[2022-12-03] MEDS: COLLAGENASE CLOSTRIDIUM HIST. 30 GRAMS TUBE TP SCH (10:03)
[2022-12-03] MEDS: BACITRACIN ZINC 15 GM TUBE TOPICAL OINTMENT TP SCH (10:04)
[2022-12-03] MEDS: ZINC SULFATE 220 MG CAPSULE (FP) PO SCH (10:39)
[2022-12-03] MEDS: ENOXAPARIN NA (PORCINE) 40 MG/0.4 ML DISP.SYRIN SQ SCH (10:39)
[2022-12-03] MEDS: THIAMINE HCL 200 MG/2 ML VIAL IVPB SCH (10:39)
[2022-12-03] MEDS: AMINO ACIDS/PROTEIN HYDROLYS 30 ML LIQUID.PKT PO SCH (10:39)
[2022-12-03] MEDS: PANTOPRAZOLE SODIUM 40 MG VIAL IVPUSH SCH ×2 (10:39→21:29)
[2022-12-03] MEDS: ESCITALOPRAM OXALATE 10 MG TABLET PO SCH (10:40)
[2022-12-03] MEDS: ASCORBIC ACID 500 MG TABLET (FP) PO SCH (10:40)
[2022-12-03] MEDS: FOLIC ACID 1 MG TABLET (FP) PO SCH (10:40)
[2022-12-03] MEDS: SPIRONOLACTONE 25 MG TABLET PO SCH (10:40)
[2022-12-03] MEDS: CHLORHEXIDINE GLUCONATE 4% CLEANSER FOR DECOLONIZATION TP SCH (21:29)
[2022-12-04] MEDS: CEFEPIME 1 GM in DEXTROSE 5%-WATER 100 ML IVPB SCH ×3 (02:43→17:06)
[2022-12-04] MEDS: MIDODRINE HCL 5 MG TABLET PO SCH ×3 (02:43→17:05)
[2022-12-04] MEDS: ACETAMINOPHEN 650 MG/20.3 ML ORAL SOLUTION (CUPS) GT PRN (02:56)
[2022-12-04] MEDS: THIAMINE HCL 200 MG/2 ML VIAL IVPB SCH (10:00)
[2022-12-04] MEDS: AMINO ACIDS/PROTEIN HYDROLYS 30 ML LIQUID.PKT PO SCH (10:00)
[2022-12-04] MEDS: FOLIC ACID 1 MG TABLET (FP) PO SCH (10:00)
[2022-12-04] MEDS: PANTOPRAZOLE SODIUM 40 MG VIAL IVPUSH SCH ×2 (10:00→22:07)
[2022-12-04] MEDS: ASCORBIC ACID 500 MG TABLET (FP) PO SCH (10:01)
[2022-12-04] MEDS: ZINC SULFATE 220 MG CAPSULE (FP) PO SCH (10:01)
[2022-12-04] MEDS: ENOXAPARIN NA (PORCINE) 40 MG/0.4 ML DISP.SYRIN SQ SCH (10:02)
[2022-12-04] MEDS: ESCITALOPRAM OXALATE 10 MG TABLET PO SCH (10:04)
[2022-12-04] MEDS: COLLAGENASE CLOSTRIDIUM HIST. 30 GRAMS TUBE TP SCH (10:05)
[2022-12-04] MEDS: BACITRACIN ZINC 15 GM TUBE TOPICAL OINTMENT TP SCH (10:05)
[2022-12-04] MEDS: ASCORBIC ACID 500 MG/5 ML UNIT DOSE CUP NGT SCH ×2 (10:06→22:07)
[2022-12-04] MEDS: SPIRONOLACTONE 25 MG TABLET PO SCH (10:08)
[2022-12-04] MEDS: CHLORHEXIDINE GLUCONATE 4% CLEANSER FOR DECOLONIZATION TP SCH (22:07)
[2022-12-05] MEDS: MIDODRINE HCL 5 MG TABLET PO SCH ×3 (02:16→17:22)
[2022-12-05] MEDS: CEFEPIME 1 GM in DEXTROSE 5%-WATER 100 ML IVPB SCH ×2 (02:16→09:38)
[2022-12-05 07:32] LABS: POTASSIUM 4.9 mmol/L (3.5-5.1)
[2022-12-05 07:34] LABS: BLOOD UREA NITROGEN 54.6 mg/dL (7-18); CALCIUM 8.3 mg/dL (8.5-10.1); MAGNESIUM 1.9 mg/dL (1.8-2.4)
[2022-12-05 07:37] LABS: CREATININE 0.5 mg/dL (0.55-1.3); PHOSPHOROUS 2.6 mg/dL (2.5-4.9)
[2022-12-05 07:39] LABS: BILIRUBIN,TOTAL 0.5 mg/dL (0.2-1); TOT PROT 5.5 g/dl (6.4-8.2)
[2022-12-05] MEDS: THIAMINE HCL 200 MG/2 ML VIAL IVPB SCH (09:38)
[2022-12-05] MEDS: ESCITALOPRAM OXALATE 10 MG TABLET PO SCH (09:38)
[2022-12-05] MEDS: SPIRONOLACTONE 25 MG TABLET PO SCH (09:38)
[2022-12-05] MEDS: AMINO ACIDS/PROTEIN HYDROLYS 30 ML LIQUID.PKT PO SCH (09:38)
[2022-12-05] MEDS: FOLIC ACID 1 MG TABLET (FP) PO SCH (09:38)
[2022-12-05] MEDS: ZINC SULFATE 220 MG CAPSULE (FP) PO SCH (09:38)
[2022-12-05] MEDS: PANTOPRAZOLE SODIUM 40 MG VIAL IVPUSH SCH ×2 (09:38→21:59)
[2022-12-05] MEDS: BACITRACIN ZINC 15 GM TUBE TOPICAL OINTMENT TP SCH (09:39)
[2022-12-05] MEDS: COLLAGENASE CLOSTRIDIUM HIST. 30 GRAMS TUBE TP SCH (09:39)
[2022-12-05] MEDS: ENOXAPARIN NA (PORCINE) 40 MG/0.4 ML DISP.SYRIN SQ SCH (09:39)
[2022-12-05] MEDS: ASCORBIC ACID 500 MG/5 ML UNIT DOSE CUP NGT SCH ×2 (09:40→21:59)
[2022-12-05] MEDS: CHLORHEXIDINE GLUCONATE 4% CLEANSER FOR DECOLONIZATION TP SCH (21:59)
[2022-12-05] MEDS: ACETAMINOPHEN 650 MG/20.3 ML ORAL SOLUTION (CUPS) GT PRN (21:59)
[2022-12-06] MEDS: MIDODRINE HCL 5 MG TABLET PO SCH ×3 (02:21→20:11)
[2022-12-06 07:41] LABS: HEMATOCRIT 27.6 % (32.4-45.2); HEMOGLOBIN 8.6 GM/dL (10.7-15.3); MCH 29.4 pg (25.7-33.7); MCHC 31.2 g/dl (32.0-36.0); MEAN CELL VOLUME 94.2 fl (80-96); MEAN PLT VOLUME 10.2 fl (7.5-11.1); PLATELET COUNT 267 10^3/uL (134-434); RBC 2.93 M/mm3 (3.60-5.2); RDW 19.2 % (11.6-15.6); WHITE BLOOD COUNT 6.4 K/mm3 (4.0-10.0)
[2022-12-06 08:40] LABS: POTASSIUM 5.3 mmol/L (3.5-5.1)
[2022-12-06 08:49] LABS: CALCIUM 8.5 mg/dL (8.5-10.1); MAGNESIUM 2.1 mg/dL (1.8-2.4)
[2022-12-06 08:52] LABS: CREATININE 0.6 mg/dL (0.55-1.3); PHOSPHOROUS 3.3 mg/dL (2.5-4.9)
[2022-12-06 08:54] LABS: BILIRUBIN,TOTAL 0.5 mg/dL (0.2-1); TOT PROT 5.7 g/dl (6.4-8.2)
[2022-12-06 09:31] LABS: ANISOCYTOSIS 1+; MACROCYTOSIS 1+
[2022-12-06] MEDS: ASCORBIC ACID 500 MG/5 ML UNIT DOSE CUP NGT SCH ×2 (09:34→23:01)
[2022-12-06] MEDS: ZINC SULFATE 220 MG CAPSULE (FP) PO SCH (09:34)
[2022-12-06] MEDS: ENOXAPARIN NA (PORCINE) 40 MG/0.4 ML DISP.SYRIN SQ SCH (09:34)
[2022-12-06] MEDS: ESCITALOPRAM OXALATE 10 MG TABLET PO SCH (09:34)
[2022-12-06] MEDS: AMINO ACIDS/PROTEIN HYDROLYS 30 ML LIQUID.PKT PO SCH (09:34)
[2022-12-06] MEDS: SPIRONOLACTONE 25 MG TABLET PO SCH (09:34)
[2022-12-06] MEDS: PANTOPRAZOLE SODIUM 40 MG VIAL IVPUSH SCH ×2 (09:34→22:20)
[2022-12-06] MEDS: FOLIC ACID 1 MG TABLET (FP) PO SCH (09:34)
[2022-12-06] MEDS: BACITRACIN ZINC 15 GM TUBE TOPICAL OINTMENT TP SCH (09:35)
[2022-12-06] MEDS: THIAMINE HCL 200 MG/2 ML VIAL IVPB SCH (09:35)
[2022-12-06] MEDS: COLLAGENASE CLOSTRIDIUM HIST. 30 GRAMS TUBE TP SCH (09:35)
[2022-12-06] MEDS: SODIUM ZIRCONIUM CYCLOSILICATE (LOKELMA) 5 GM PACKET PO SCH (20:11)
[2022-12-06] MEDS ORDERED: CHLORHEXIDINE GLUCONATE 4% CLEANSER FOR DECOLONIZATION TP SCH (22:00)
[2022-12-07] MEDS: MIDODRINE HCL 5 MG TABLET PO SCH ×3 (02:20→17:42)
[2022-12-07] MEDS: AMINO ACIDS/PROTEIN HYDROLYS 30 ML LIQUID.PKT PO SCH (08:43)
[2022-12-07] MEDS: ESCITALOPRAM OXALATE 10 MG TABLET PO SCH (09:57)
[2022-12-07] MEDS: THIAMINE HCL 200 MG/2 ML VIAL IVPB SCH (09:57)
[2022-12-07] MEDS: PANTOPRAZOLE SODIUM 40 MG VIAL IVPUSH SCH ×2 (09:58→21:16)
[2022-12-07] MEDS: FOLIC ACID 1 MG TABLET (FP) PO SCH (09:58)
[2022-12-07] MEDS: SPIRONOLACTONE 25 MG TABLET PO SCH (09:58)
[2022-12-07] MEDS: SODIUM ZIRCONIUM CYCLOSILICATE (LOKELMA) 5 GM PACKET PO SCH (09:58)
[2022-12-07] MEDS: ZINC SULFATE 220 MG CAPSULE (FP) PO SCH (09:58)
[2022-12-07] MEDS: ASCORBIC ACID 500 MG/5 ML UNIT DOSE CUP NGT SCH ×2 (09:59→21:16)
[2022-12-07] MEDS: BACITRACIN ZINC 15 GM TUBE TOPICAL OINTMENT TP SCH (10:00)
[2022-12-07] MEDS: COLLAGENASE CLOSTRIDIUM HIST. 30 GRAMS TUBE TP SCH (10:02)
[2022-12-07] MEDS: ENOXAPARIN NA (PORCINE) 40 MG/0.4 ML DISP.SYRIN SQ SCH (14:09)
[2022-12-07] MEDS: MELATONIN 1 MG TABLET GT PRN (21:16)
[2022-12-08] MEDS: MIDODRINE HCL 5 MG TABLET PO SCH ×3 (01:53→17:28)
[2022-12-08 08:38] LABS: BASO % 0.7 % (0-2.0); EOS % 0.4 % (0-4.5); HEMATOCRIT 27.4 % (32.4-45.2); LYMPH % 8.3 % (8-40); MCH 29.8 pg (25.7-33.7); MCHC 32.7 g/dl (32.0-36.0); MEAN CELL VOLUME 91.1 fl (80-96); MEAN PLT VOLUME 9.5 fl (7.5-11.1); MONO % 19.8 % (3.8-10.2); NEUT % 70.8 % (42.8-82.8); PLATELET COUNT 288 10^3/uL (134-434); RDW 18.5 % (11.6-15.6); WHITE BLOOD COUNT 8.7 K/mm3 (4.0-10.0)
[2022-12-08] MEDS: AMINO ACIDS/PROTEIN HYDROLYS 30 ML LIQUID.PKT PO SCH (09:29)
[2022-12-08] MEDS: ZINC SULFATE 220 MG CAPSULE (FP) PO SCH (10:21)
[2022-12-08] MEDS: FOLIC ACID 1 MG TABLET (FP) PO SCH (10:21)
[2022-12-08] MEDS: ESCITALOPRAM OXALATE 10 MG TABLET PO SCH (10:21)
[2022-12-08] MEDS: SPIRONOLACTONE 25 MG TABLET PO SCH (10:21)
[2022-12-08] MEDS: THIAMINE HCL 200 MG/2 ML VIAL IVPB SCH (10:22)
[2022-12-08] MEDS: ENOXAPARIN NA (PORCINE) 40 MG/0.4 ML DISP.SYRIN SQ SCH (10:22)
[2022-12-08] MEDS: PANTOPRAZOLE SODIUM 40 MG VIAL IVPUSH SCH ×2 (10:22→23:00)
[2022-12-08] MEDS: ASCORBIC ACID 500 MG/5 ML UNIT DOSE CUP NGT SCH ×2 (10:23→23:00)
[2022-12-08] MEDS: BACITRACIN ZINC 15 GM TUBE TOPICAL OINTMENT TP SCH (10:23)
[2022-12-08] MEDS: COLLAGENASE CLOSTRIDIUM HIST. 30 GRAMS TUBE TP SCH (10:25)
[2022-12-08 10:31] LABS: BLOOD UREA NITROGEN 49.7 mg/dL (7-18); CALCIUM 8.7 mg/dL (8.5-10.1)
[2022-12-08 10:34] LABS: CREATININE 0.6 mg/dL (0.55-1.3)
[2022-12-08 10:36] LABS: BILIRUBIN,TOTAL 0.6 mg/dL (0.2-1); TOT PROT 5.7 g/dl (6.4-8.2)
[2022-12-08] MEDS: MELATONIN 1 MG TABLET GT PRN (23:01)
[2022-12-09] MEDS: MIDODRINE HCL 5 MG TABLET PO SCH ×3 (01:06→17:38)
[2022-12-09] MEDS: FOLIC ACID 1 MG TABLET (FP) PO SCH (10:26)
[2022-12-09] MEDS: AMINO ACIDS/PROTEIN HYDROLYS 30 ML LIQUID.PKT PO SCH (10:26)
[2022-12-09] MEDS: SPIRONOLACTONE 25 MG TABLET PO SCH (10:26)
[2022-12-09] MEDS: ZINC SULFATE 220 MG CAPSULE (FP) PO SCH (10:26)
[2022-12-09] MEDS: ESCITALOPRAM OXALATE 10 MG TABLET PO SCH (10:26)
[2022-12-09] MEDS: ENOXAPARIN NA (PORCINE) 40 MG/0.4 ML DISP.SYRIN SQ SCH (10:27)
[2022-12-09] MEDS: PANTOPRAZOLE SODIUM 40 MG VIAL IVPUSH SCH ×2 (10:28→23:09)
[2022-12-09] MEDS: BACITRACIN ZINC 15 GM TUBE TOPICAL OINTMENT TP SCH (10:28)
[2022-12-09] MEDS: THIAMINE HCL 200 MG/2 ML VIAL IVPB SCH (10:29)
[2022-12-09] MEDS: ASCORBIC ACID 500 MG/5 ML UNIT DOSE CUP NGT SCH ×2 (10:29→23:09)
[2022-12-09] MEDS: COLLAGENASE CLOSTRIDIUM HIST. 30 GRAMS TUBE TP SCH (10:30)
[2022-12-09 10:43] LABS: BASO % 0.8 % (0-2.0); EOS % 0.3 % (0-4.5); HEMATOCRIT 29.3 % (32.4-45.2); HEMOGLOBIN 9.2 GM/dL (10.7-15.3); LYMPH % 7.4 % (8-40); MCHC 31.3 g/dl (32.0-36.0); MEAN CELL VOLUME 92.7 fl (80-96); MEAN PLT VOLUME 10.3 fl (7.5-11.1); MONO % 19.5 % (3.8-10.2); PLATELET COUNT 292 10^3/uL (134-434); RBC 3.16 M/mm3 (3.60-5.2); RDW 18.3 % (11.6-15.6); WHITE BLOOD COUNT 10.2 K/mm3 (4.0-10.0)
[2022-12-09 11:01] LABS: POTASSIUM 4.4 mmol/L (3.5-5.1)
[2022-12-09 11:08] LABS: CALCIUM 8.7 mg/dL (8.5-10.1)
[2022-12-09 11:09] LABS: ALBUMIN 2.2 g/dl (3.4-5.0); BLOOD UREA NITROGEN 51.4 mg/dL (7-18)
[2022-12-09 11:11] LABS: CREATININE 0.6 mg/dL (0.55-1.3)
[2022-12-09 11:13] LABS: BILIRUBIN,TOTAL 0.4 mg/dL (0.2-1); TOT PROT 6.3 g/dl (6.4-8.2)
[2022-12-09] MEDS: ALBUTEROL SO4 2.5/IPRATROPIUM 0.5 INH SOL 3 ML VIAL.NEB. NEB SCH ×2 (15:49→20:37)
[2022-12-10] MEDS: MIDODRINE HCL 5 MG TABLET PO SCH ×3 (01:55→18:05)
[2022-12-10] MEDS: ALBUTEROL SO4 2.5/IPRATROPIUM 0.5 INH SOL 3 ML VIAL.NEB. NEB SCH ×4 (08:20→21:45)
[2022-12-10] MEDS ORDERED: LACTATED RINGERS SOLUTION 1,000 ML/1,000 ML INFUS.BAG IV SCH (09:00)
[2022-12-10] MEDS: AMINO ACIDS/PROTEIN HYDROLYS 30 ML LIQUID.PKT PO SCH (09:13)
[2022-12-10 10:09] LABS: BASO % 1.2 % (0-2.0); EOS % 0.5 % (0-4.5); HEMATOCRIT 29.2 % (32.4-45.2); HEMOGLOBIN 9.2 GM/dL (10.7-15.3); MCH 29.1 pg (25.7-33.7); MCHC 31.5 g/dl (32.0-36.0); MEAN CELL VOLUME 92.6 fl (80-96); MEAN PLT VOLUME 10.1 fl (7.5-11.1); NEUT % 69.3 % (42.8-82.8); PLATELET COUNT 254 10^3/uL (134-434); RBC 3.15 M/mm3 (3.60-5.2); RDW 18.4 % (11.6-15.6); WHITE BLOOD COUNT 6.9 K/mm3 (4.0-10.0)
[2022-12-10 10:33] LABS: ALBUMIN 2.2 g/dl (3.4-5.0); BLOOD UREA NITROGEN 44.1 mg/dL (7-18); CALCIUM 8.6 mg/dL (8.5-10.1); CREATININE 0.5 mg/dL (0.55-1.3)
[2022-12-10 10:34] LABS: BILIRUBIN,TOTAL 0.6 mg/dL (0.2-1); TOT PROT 6.2 g/dl (6.4-8.2)
[2022-12-10] MEDS ORDERED: BUPIVACAINE HCL/PF 0.25% (2.5MG/ML) 10 ML VIAL ONE (10:38)
[2022-12-10] MEDS ORDERED: ALBUMIN HUMAN 25% 100 ML VIAL IV ONE (11:00)
[2022-12-10] MEDS: SPIRONOLACTONE 25 MG TABLET PO SCH (11:01)
[2022-12-10] MEDS: FOLIC ACID 1 MG TABLET (FP) PO SCH (11:01)
[2022-12-10] MEDS: ESCITALOPRAM OXALATE 10 MG TABLET PO SCH (11:02)
[2022-12-10] MEDS: ZINC SULFATE 220 MG CAPSULE (FP) PO SCH (11:02)
[2022-12-10] MEDS: ASCORBIC ACID 500 MG/5 ML UNIT DOSE CUP NGT SCH (11:03)
[2022-12-10] MEDS ORDERED: PROPOFOL 40 ML ONE (11:10)
[2022-12-10] MEDS ORDERED: ROCURONIUM BROMIDE 50 MG/5 ML SYRINGE ONE (11:11)
[2022-12-10] MEDS ORDERED: SUCCINYLCHOLINE CHLORIDE 200 MG/10 ML SYRINGE ONE (11:11)
[2022-12-10] MEDS: THIAMINE HCL 200 MG/2 ML VIAL IVPB SCH (11:16)
[2022-12-10] MEDS ORDERED: DEXMEDETOMIDINE HCL 200 MCG/2 ML IVPB ONE (11:17)
[2022-12-10] MEDS: PANTOPRAZOLE SODIUM 40 MG VIAL IVPUSH SCH ×2 (11:33→21:35)
[2022-12-10] MEDS ORDERED: CLINDAMYCIN 900 MG PREMIX IVPB 900 MG/50 ML BAG IVPB ONE (13:00)
[2022-12-10] MEDS ORDERED: BUPIVACAINE HCL/PF 0.25% (2.5MG/ML) 10 ML VIAL IJ ONE ×3 (13:10→15:00)
[2022-12-10] MEDS ORDERED: CLINDAMYCIN 900 MG PREMIX BAG IVPB ONE (13:10)
[2022-12-10] MEDS ORDERED: SODIUM CHLORIDE 1,000 ML IV SCH (16:00)
[2022-12-10] MEDS ORDERED: ACETAMINOPHEN INJECTION 100 ML IVPB ONE (16:20)
[2022-12-10] MEDS: ACETAMINOPHEN 1000 MG/100 ML BAG IVPB SCH (16:22)
[2022-12-11] MEDS: ACETAMINOPHEN 1000 MG/100 ML BAG IVPB SCH ×3 (01:10→16:56)
[2022-12-11] MEDS: MIDODRINE HCL 5 MG TABLET PO SCH ×4 (01:14→20:28)
[2022-12-11] MEDS: ALBUTEROL SO4 2.5/IPRATROPIUM 0.5 INH SOL 3 ML VIAL.NEB. NEB SCH ×4 (08:50→20:23)
[2022-12-11 09:49] LABS: EOS % 0.2 % (0-4.5); HEMATOCRIT 27.9 % (32.4-45.2); HEMOGLOBIN 8.9 GM/dL (10.7-15.3); LYMPH % 5.3 % (8-40); MCH 29.5 pg (25.7-33.7); MCHC 31.9 g/dl (32.0-36.0); MEAN CELL VOLUME 92.5 fl (80-96); MEAN PLT VOLUME 9.9 fl (7.5-11.1); MONO % 14.1 % (3.8-10.2); NEUT % 79.4 % (42.8-82.8); PLATELET COUNT 244 10^3/uL (134-434); RBC 3.02 M/mm3 (3.60-5.2); RDW 18.1 % (11.6-15.6); WHITE BLOOD COUNT 9.9 K/mm3 (4.0-10.0)
[2022-12-11 09:56] LABS: POTASSIUM 4.2 mmol/L (3.5-5.1)
[2022-12-11 10:01] LABS: CALCIUM 8.1 mg/dL (8.5-10.1)
[2022-12-11 10:02] LABS: ALBUMIN 2.2 g/dl (3.4-5.0); BLOOD UREA NITROGEN 35.4 mg/dL (7-18)
[2022-12-11 10:05] LABS: CREATININE 0.6 mg/dL (0.55-1.3)
[2022-12-11 10:07] LABS: BILIRUBIN,TOTAL 0.6 mg/dL (0.2-1); TOT PROT 5.6 g/dl (6.4-8.2)
[2022-12-11] MEDS: BACITRACIN ZINC 15 GM TUBE TOPICAL OINTMENT TP SCH (11:30)
[2022-12-11] MEDS: COLLAGENASE CLOSTRIDIUM HIST. 30 GRAMS TUBE TP SCH (11:30)
[2022-12-11] MEDS: PANTOPRAZOLE SODIUM 40 MG VIAL IVPUSH SCH ×2 (11:31→21:45)
[2022-12-11] MEDS: ENOXAPARIN NA (PORCINE) 40 MG/0.4 ML DISP.SYRIN SQ SCH (11:31)
[2022-12-11] MEDS: THIAMINE HCL 200 MG/2 ML VIAL IVPB SCH (11:31)
[2022-12-11] MEDS: SPIRONOLACTONE 25 MG TABLET PO SCH (11:33)
[2022-12-11] MEDS: ESCITALOPRAM OXALATE 10 MG TABLET PO SCH (11:34)
[2022-12-11 20:22] LABS: ARTERIAL BLD GAS O2 SATURATION 99.9 % (95-98); ARTERIAL BLOOD GAS BASE EXCESS -3.9 mmol/L (-2-2); ARTERIAL BLOOD GAS PO2 458.6 mmHg (80-100); ARTERIAL BLOOD GAS pH 7.385 (7.350-7.450)
[2022-12-11] MEDS ORDERED: IOHEXOL 300 MG/ML INFUS..BTL IV ONE (20:28)
[2022-12-11 20:29] LABS: ALLENS TEST POSITIVE
[2022-12-11 20:30] LABS: VENT MODE A/C; VENT RATE 14
[2022-12-11 20:39] LABS: BASO % 0.7 % (0-2.0); EOS % 0.3 % (0-4.5); HEMOGLOBIN 9.3 GM/dL (10.7-15.3); LYMPH % 3.4 % (8-40); MCH 29.1 pg (25.7-33.7); MCHC 30.9 g/dl (32.0-36.0); MEAN CELL VOLUME 94.3 fl (80-96); MEAN PLT VOLUME 9.5 fl (7.5-11.1); MONO % 12.3 % (3.8-10.2); NEUT % 83.3 % (42.8-82.8); PLATELET COUNT 232 10^3/uL (134-434); RBC 3.18 M/mm3 (3.60-5.2); RDW 18.3 % (11.6-15.6); WHITE BLOOD COUNT 12.9 K/mm3 (4.0-10.0)
[2022-12-11 20:46] LABS: INR 1.23 (0.83-1.09); PROTHROMBIN TIME (PATIENT) 14.2 SEC (9.7-13.0)
[2022-12-11 20:48] LABS: ACTIVATED PTT 35.5 SECONDS (25.2-36.5)
[2022-12-11 21:12] LABS: POTASSIUM 4.1 mmol/L (3.5-5.1)
[2022-12-11 21:16] LABS: CALCIUM 8.1 mg/dL (8.5-10.1)
[2022-12-11 21:17] LABS: ALBUMIN 2.1 g/dl (3.4-5.0); BLOOD UREA NITROGEN 31.8 mg/dL (7-18); MAGNESIUM 1.8 mg/dL (1.8-2.4)
[2022-12-11 21:20] LABS: CREATININE 0.6 mg/dL (0.55-1.3); PHOSPHOROUS 4.6 mg/dL (2.5-4.9)
[2022-12-11 21:21] LABS: BILIRUBIN,TOTAL 0.6 mg/dL (0.2-1); TOT PROT 5.5 g/dl (6.4-8.2)
[2022-12-11] MEDS ORDERED: IOHEXOL 300 MG/ML INFUS..BTL IJ ONE (23:09)
[2022-12-12] MEDS: MIDODRINE HCL 5 MG TABLET PO SCH ×2 (01:02→09:24)
[2022-12-12 07:17] LABS: BASO % 0.9 % (0-2.0); EOS % 0.3 % (0-4.5); HEMATOCRIT 28.5 % (32.4-45.2); LYMPH % 5.6 % (8-40); MCH 29.1 pg (25.7-33.7); MCHC 31.4 g/dl (32.0-36.0); MEAN CELL VOLUME 92.7 fl (80-96); MEAN PLT VOLUME 10.2 fl (7.5-11.1); MONO % 10.4 % (3.8-10.2); NEUT % 82.8 % (42.8-82.8); PLATELET COUNT 260 10^3/uL (134-434); RBC 3.08 M/mm3 (3.60-5.2); RDW 18.2 % (11.6-15.6); WHITE BLOOD COUNT 10.7 K/mm3 (4.0-10.0)
[2022-12-12 07:36] LABS: POTASSIUM 4.2 mmol/L (3.5-5.1)
[2022-12-12 07:55] LABS: CALCIUM 8.5 mg/dL (8.5-10.1)
[2022-12-12 07:56] LABS: ALBUMIN 2.1 g/dl (3.4-5.0); BLOOD UREA NITROGEN 29.7 mg/dL (7-18); MAGNESIUM 1.8 mg/dL (1.8-2.4)
[2022-12-12 07:59] LABS: CREATININE 0.5 mg/dL (0.55-1.3)
[2022-12-12] MEDS ORDERED: AMINO ACIDS/PROTEIN HYDROLYS 30 ML LIQUID.PKT PO SCH ×2 (08:00→11:55)
[2022-12-12 08:01] LABS: BILIRUBIN,TOTAL 0.4 mg/dL (0.2-1); TOT PROT 5.6 g/dl (6.4-8.2)
[2022-12-12] MEDS: ALBUTEROL SO4 2.5/IPRATROPIUM 0.5 INH SOL 3 ML VIAL.NEB. NEB SCH ×4 (08:30→21:01)
[2022-12-12] MEDS: ENOXAPARIN NA (PORCINE) 40 MG/0.4 ML DISP.SYRIN SQ SCH (09:24)
[2022-12-12] MEDS: ESCITALOPRAM OXALATE 10 MG TABLET PO SCH (09:24)
[2022-12-12] MEDS: PANTOPRAZOLE SODIUM 40 MG VIAL IVPUSH SCH ×2 (09:24→22:48)
[2022-12-12] MEDS: THIAMINE HCL 200 MG/2 ML VIAL IVPB SCH (09:24)
[2022-12-12] MEDS: COLLAGENASE CLOSTRIDIUM HIST. 30 GRAMS TUBE TP SCH (09:25)
[2022-12-12] MEDS: BACITRACIN ZINC 15 GM TUBE TOPICAL OINTMENT TP SCH (09:25)
[2022-12-12] MEDS: SPIRONOLACTONE 25 MG TABLET PO SCH (09:25)
[2022-12-12] MEDS ORDERED: POLYETHYLENE GLYCOL (HEALTHYLAX) 3350 17 GM PACKET PO SCH (10:00)
[2022-12-12] MEDS ORDERED: FUROSEMIDE 40 MG/5 ML UNIT-DOSE CUP PO SCH (12:00)
[2022-12-12] MEDS ORDERED: SPIRONOLACTONE 25 MG TABLET GT SCH (12:04)
[2022-12-12] MEDS ORDERED: AMINO ACIDS/PROTEIN HYDROLYS 30 ML LIQUID.PKT GT SCH (12:05)
[2022-12-12] MEDS ORDERED: POLYETHYLENE GLYCOL (HEALTHYLAX) 3350 17 GM PACKET GT SCH (12:05)
[2022-12-12] MEDS ORDERED: ESCITALOPRAM OXALATE 5 MG/5 ML GT SCH (12:05)
[2022-12-12] MEDS ORDERED: MIDODRINE HCL 5 MG TABLET GT SCH (12:05)
[2022-12-12] MEDS ORDERED: FUROSEMIDE 40 MG/5 ML UNIT-DOSE CUP GT SCH (12:30)
[2022-12-12] MEDS: POLYETHYLENE GLYCOL (HEALTHYLAX) 3350 17 GM PACKET GT SCH (22:48)
[2022-12-13] MEDS ORDERED: MELATONIN 5 MG TABLETS PO PRN (00:15)
[2022-12-13] MEDS: MIDODRINE HCL 5 MG TABLET GT SCH ×2 (01:26→10:11)
[2022-12-13] MEDS: ALBUTEROL SO4 2.5/IPRATROPIUM 0.5 INH SOL 3 ML VIAL.NEB. NEB SCH ×3 (07:30→15:00)
[2022-12-13] MEDS ORDERED: AMINO ACIDS/PROTEIN HYDROLYS 30 ML LIQUID.PKT GT SCH (08:00)
[2022-12-13] MEDS ORDERED: THIAMINE HCL 200 MG/2 ML VIAL IVPB SCH (10:00)
[2022-12-13] MEDS ORDERED: ESCITALOPRAM OXALATE 10 MG TABLET GT SCH (10:00)
[2022-12-13] MEDS ORDERED: FUROSEMIDE 40 MG/5 ML UNIT-DOSE CUP GT SCH (10:00)
[2022-12-13] MEDS ORDERED: COLLAGENASE CLOSTRIDIUM HIST. 30 GRAMS TUBE TP SCH (10:00)
[2022-12-13] MEDS ORDERED: ONDANSETRON 4 MG/2 ML VIAL IVPUSH ONE (10:00)
[2022-12-13] MEDS ORDERED: SPIRONOLACTONE 25 MG TABLET GT SCH (10:00)
[2022-12-13] MEDS ORDERED: BACITRACIN ZINC 15 GM TUBE TOPICAL OINTMENT TP SCH (10:00)
[2022-12-13] MEDS ORDERED: ENOXAPARIN NA (PORCINE) 40 MG/0.4 ML DISP.SYRIN SQ SCH (10:00)
[2022-12-13] MEDS: POLYETHYLENE GLYCOL (HEALTHYLAX) 3350 17 GM PACKET GT SCH (10:11)
[2022-12-13 10:14] LABS: POTASSIUM 3.7 mmol/L (3.5-5.1)
[2022-12-13 10:25] LABS: CALCIUM 8.6 mg/dL (8.5-10.1)
[2022-12-13 10:26] LABS: BLOOD UREA NITROGEN 28.8 mg/dL (7-18); MAGNESIUM 1.6 mg/dL (1.8-2.4)
[2022-12-13 10:29] LABS: CREATININE 0.5 mg/dL (0.55-1.3); PHOSPHOROUS 3.3 mg/dL (2.5-4.9)
[2022-12-13 10:36] LABS: HEMATOCRIT 29.3 % (32.4-45.2); HEMOGLOBIN 9.2 GM/dL (10.7-15.3); MCH 28.9 pg (25.7-33.7); MCHC 31.5 g/dl (32.0-36.0); MEAN CELL VOLUME 91.9 fl (80-96); PLATELET COUNT 263 10^3/uL (134-434); RBC 3.19 M/mm3 (3.60-5.2); RDW 17.8 % (11.6-15.6); WHITE BLOOD COUNT 9.6 K/mm3 (4.0-10.0)
[2022-12-13] MEDS: PANTOPRAZOLE SODIUM 40 MG VIAL IVPUSH SCH (11:04)
[2022-12-13] MEDS ORDERED: MAGNESIUM SULFATE IN WATER 2 GM/50 ML IVPB IVPB ONE (12:00)
[2022-12-13 16:22] VITALS: BP 117/68; PULSE 91; RESP 18; TEMP 98
== END 2022-12-13 17:24 | DRG 4 ==
LOC: JER 11:08 → JERBED 11:45 → J4W 18:18 → JICU 11-06 05:30 → J5S 12-06 18:15 → JICU 12-11 18:23 → J5S 12-12 18:29
PROVIDERS: ADMIT Internal Medicine; ATTEND Internal Medicine
PROC: 5A1955Z Respiratory Ventilation, Greater than 96 Consecutive Hours (ICD-10-PCS; 2022-11-06)
PROC: 0BH17EZ Insertion of Endotracheal Airway into Trachea, Via Natural or Artificial Opening (ICD-10-PCS; 2022-11-06)
PROC: 05HM33Z Insertion of Infusion Device into Right Internal Jugular Vein, Percutaneous Approach (ICD-10-PCS; 2022-11-06)
PROC: B543ZZA Ultrasonography of Right Jugular Veins, Guidance (ICD-10-PCS; 2022-11-06)
PROC: 5A12012 Performance of Cardiac Output, Single, Manual (ICD-10-PCS; 2022-11-06)
PROC: 0W9G30Z Drainage of Peritoneal Cavity with Drainage Device, Percutaneous Approach (ICD-10-PCS; 2022-11-26)
PROC: 0B113F4 Bypass Trachea to Cutaneous with Tracheostomy Device, Percutaneous Approach (ICD-10-PCS; principal; 2022-12-01)
PROC: 0BJ08ZZ Inspection of Tracheobronchial Tree, Via Natural or Artificial Opening Endoscopic (ICD-10-PCS; 2022-12-01)
PROC: 0DH60UZ Insertion of Feeding Device into Stomach, Open Approach (ICD-10-PCS; 2022-12-10)
DX: A41.9 Sepsis, unspecified organism (principal); E43 Unspecified severe protein-calorie malnutrition; I21.4 Non-ST elevation (NSTEMI) myocardial infarction; J96.21 Acute and chronic respiratory failure with hypoxia; J18.9 Pneumonia, unspecified organism; I50.23 Acute on chronic systolic (congestive) heart failure; I46.9 Cardiac arrest, cause unspecified; R65.21 Severe sepsis with septic shock; K72.00 Acute and subacute hepatic failure without coma; R57.0 Cardiogenic shock; M62.82 Rhabdomyolysis; E87.1 Hypo-osmolality and hyponatremia; R18.8 Other ascites; F10.239 Alcohol dependence with withdrawal, unspecified; J98.11 Atelectasis; N39.0 Urinary tract infection, site not specified; I42.9 Cardiomyopathy, unspecified; R64 Cachexia; E83.42 Hypomagnesemia; K74.60 Unspecified cirrhosis of liver; I11.0 Hypertensive heart disease with heart failure; F10.20 Alcohol dependence, uncomplicated; D69.6 Thrombocytopenia, unspecified; E87.6 Hypokalemia; K76.0 Fatty (change of) liver, not elsewhere classified; F03.90 Unspecified dementia, unspecified severity, without behavioral disturbance, psychotic disturbance, mood disturbance, and anxiety; Z68.20 Body mass index [BMI] 20.0-20.9, adult; R62.7 Adult failure to thrive; D72.829 Elevated white blood cell count, unspecified; R33.9 Retention of urine, unspecified; I25.10 Atherosclerotic heart disease of native coronary artery without angina pectoris; E83.39 Other disorders of phosphorus metabolism
CPT/HCPCS: 0241U-QW; 31500; 36415; 36600; 70450-TC; 71045-TC-FY; 71275-TC; 72125-TC; 72170-TC-FY; 73562-TC-LT-FY; 73562-TC-RT-FY; 74018-TC-FY; 74178-TC; 76705-TC; 80048; 80053; 80061; 80076; 80307; 81003; 82042; 82105; 82140; 82150; 82248; 82465; 82550; 82553; 82728; 82803; 82945; 82962; 82977; 83010; 83036; 83540; 83550; 83605; 83615; 83735; 83880; 83986; 84100; 84132; 84157; 84443; 84478; 84484; 85025; 85027; 85610; 85730; 86140; 86704; 86803; 86850; 86900; 86901; 87040; 87070; 87075; 87077; 87086; 87102; 87116; 87186; 87205; 87206; 87210; 87340; 87517; 87635; 87899; 88108; 88305-TC; 90715; 93005; 93010; 93306-TC; 94002; 94640; 94660; 94760; 99291; G0480; J1644; J3490; P9047; Q9967